=== PATIENT | female | born 1940 | race Caucasian/White ===

== ENCOUNTER → 2019-04-28 13:03 | Outpatient (BNVA) | payer MEDICARE, MEDICAID, SELFPAY | PROVIDERS: Family Provider Family Medicine; PCP Family Medicine; Visit Provider Nurse Practitioner Family | DX: N39.0 Urinary tract infection, site not specified (principal); R35.1 Nocturia; N39.41 Urge incontinence | CPT/HCPCS: 81001 ==

== ENCOUNTER → 2019-05-19 13:16 | Outpatient (BNVA) | payer MEDICARE, MEDICAID, SELFPAY | PROVIDERS: Family Provider Family Medicine; PCP Family Medicine; Visit Provider Nurse Practitioner Family | DX: N39.0 Urinary tract infection, site not specified (principal); R35.1 Nocturia | CPT/HCPCS: 81001 ==

== ENCOUNTER → 2019-06-15 09:01 | Outpatient (BNVA) | payer MEDICARE, MEDICAID, SELFPAY | PROVIDERS: Family Provider Family Medicine; PCP Family Medicine; Visit Provider Family Medicine | DX: E11.42 Type 2 diabetes mellitus with diabetic polyneuropathy (principal) | CPT/HCPCS: 83036 ==

== ENCOUNTER → 2019-08-18 13:11 | Outpatient (BNVA) | payer MEDICARE, MEDICAID, SELFPAY | PROVIDERS: Family Provider Family Medicine; PCP Family Medicine; Visit Provider Nurse Practitioner Family | DX: N39.0 Urinary tract infection, site not specified (principal); R35.1 Nocturia | CPT/HCPCS: 81001 ==

== ENCOUNTER → 2019-09-08 09:02 | Outpatient (BNVA) | payer MEDICARE, MEDICAID, SELFPAY | PROVIDERS: Family Provider Family Medicine; PCP Family Medicine; Visit Provider Family Medicine | DX: I10 Essential (primary) hypertension (principal); E78.5 Hyperlipidemia, unspecified; E11.29 Type 2 diabetes mellitus with other diabetic kidney complication; R80.9 Proteinuria, unspecified; Z79.4 Long term (current) use of insulin; R80.1 Persistent proteinuria, unspecified | CPT/HCPCS: 80053; 80061; 83036; 85025 ==

== ENCOUNTER → 2019-12-12 13:14 | Outpatient (BNVA) | payer MEDICARE, MEDICAID, SELFPAY | PROVIDERS: Family Provider Family Medicine; PCP Family Medicine; Referring Provider Dermatology; Visit Provider Dermatology | DX: Z85.820 Personal history of malignant melanoma of skin (principal); L57.0 Actinic keratosis; L82.1 Other seborrheic keratosis; L72.0 Epidermal cyst | CPT/HCPCS: 17000; 17003; 99203 ==

== ENCOUNTER → 2019-12-14 08:33 | Outpatient (BNVA) | payer MEDICARE, MEDICAID, SELFPAY | PROVIDERS: Family Provider Family Medicine; PCP Family Medicine; Visit Provider Family Medicine | DX: I10 Essential (primary) hypertension (principal); E11.29 Type 2 diabetes mellitus with other diabetic kidney complication; R80.9 Proteinuria, unspecified; Z79.4 Long term (current) use of insulin; E78.5 Hyperlipidemia, unspecified | CPT/HCPCS: 80053; 83036 ==

== ENCOUNTER → 2020-02-27 13:27 | Outpatient (BNVA) | payer MEDICARE, MEDICAID, SELFPAY | PROVIDERS: Family Provider Family Medicine; PCP Family Medicine; Visit Provider Nurse Practitioner Family | DX: N39.0 Urinary tract infection, site not specified (principal); R35.1 Nocturia | CPT/HCPCS: 81003 ==

== ENCOUNTER → 2020-03-14 08:44 | Outpatient (BNVA) | payer MEDICARE, MEDICAID, SELFPAY | PROVIDERS: Family Provider Family Medicine; PCP Family Medicine; Visit Provider Family Medicine | DX: R80.9 Proteinuria, unspecified (principal); E11.29 Type 2 diabetes mellitus with other diabetic kidney complication; Z79.4 Long term (current) use of insulin | CPT/HCPCS: 80048 ==

== ENCOUNTER → 2020-04-03 09:26 | Outpatient (BNVA) | payer MEDICARE, MEDICAID, SELFPAY | PROVIDERS: Family Provider Family Medicine; PCP Family Medicine; Visit Provider Family Medicine | DX: I10 Essential (primary) hypertension (principal); E11.29 Type 2 diabetes mellitus with other diabetic kidney complication; R80.9 Proteinuria, unspecified; Z79.4 Long term (current) use of insulin; E78.5 Hyperlipidemia, unspecified | CPT/HCPCS: 80053; 80061; 82043; 83036; 85025 ==

== ENCOUNTER → 2020-07-03 09:02 | Outpatient (BNVA) | payer MEDICARE, MEDICAID, SELFPAY | PROVIDERS: Family Provider Family Medicine; PCP Family Medicine; Visit Provider Family Medicine | DX: I10 Essential (primary) hypertension (principal); E11.29 Type 2 diabetes mellitus with other diabetic kidney complication; R80.9 Proteinuria, unspecified; Z79.4 Long term (current) use of insulin; E78.5 Hyperlipidemia, unspecified; E11.40 Type 2 diabetes mellitus with diabetic neuropathy, unspecified | CPT/HCPCS: 80048; 83036 ==

== ENCOUNTER → 2020-08-01 09:03 | Outpatient (BNVA) | payer MEDICARE, MEDICAID, SELFPAY | PROVIDERS: Family Provider Family Medicine; PCP Family Medicine; Visit Provider Family Medicine | DX: N18.9 Chronic kidney disease, unspecified (principal) | CPT/HCPCS: 80069; 82340 ==

== ENCOUNTER → 2020-08-22 14:35 | Outpatient (BNVA) | payer MEDICARE, MEDICAID, SELFPAY | PROVIDERS: Family Provider Family Medicine; PCP Family Medicine; Visit Provider Urology | DX: N39.0 Urinary tract infection, site not specified (principal) | CPT/HCPCS: 81003 ==

== ENCOUNTER → 2020-10-04 13:08 | Outpatient (BNVA) | payer MEDICARE, MEDICAID, SELFPAY | PROVIDERS: Family Provider Family Medicine; PCP Family Medicine; Visit Provider Family Medicine | DX: E11.29 Type 2 diabetes mellitus with other diabetic kidney complication (principal); R80.9 Proteinuria, unspecified; E11.40 Type 2 diabetes mellitus with diabetic neuropathy, unspecified; I10 Essential (primary) hypertension; Z79.4 Long term (current) use of insulin | CPT/HCPCS: 80053; 83036 ==

== ENCOUNTER → 2020-10-23 15:07 | Outpatient (BNVA) | payer MEDICARE, MEDICAID, SELFPAY | PROVIDERS: Family Provider Family Medicine; PCP Family Medicine; Visit Provider Nurse Practitioner Family | DX: N39.0 Urinary tract infection, site not specified (principal); R39.15 Urgency of urination; R35.1 Nocturia | CPT/HCPCS: 81003 ==

== ENCOUNTER 2020-12-11 14:32 | Outpatient (CLI) | payer MEDICARE, MEDICAID, SELFPAY ==
--- NOTE | 2020-12-11 12:45 | USCV_ITS ---
Nimo Kennedy Age: 80 Gender: F : 1940 Exam Date: 12/11/2020 15:13 Ordering Phys: Gem Garcia MD ([email or web address]) Technologist: Exam Location: [facility] [place] Indication: PAD Risk Factors: None Previous Vascular Surgery: RIGHT LEFT BP: 140.0 / 80.00 BP: 140.0/ 80.00 0 0 Waveform Velocity (cm/s) Velocity (cm/s) Waveform Biphasic 110.3 Iliac Prox 149.0 Biphasic Biphasic Iliac Mid Biphasic 134.1 150.4 Biphasic 118.4 Iliac Distal 114.7 Biphasic Biphasic 102.7 OBIEE OBIA SOLUTION ARCHITECT 83.1 Biphasic Biphasic 101.3 SFA Prox 102.9 Biphasic Biphasic 98.4 SFA Mid 100.2 Biphasic Biphasic 95.6 SFA Dist 109.5 Biphasic Biphasic 72.7 POP 70.8 Biphasic Biphasic 89.3 POLYSOM TECH 56.0 Biphasic Monophasic 67.0 DPA 55.8 Monophasic 1.1 SADI 1.0 FINDINGS Mild to moderate diffuse plaque in the femoral arteries bilaterally Normal resting ABIs bilaterally-1.1 on the right side and 1.0 on the left side Normal Doppler flow velocities bilaterally CONCLUSIONS 1. No significant arterial obstruction, based on the above findings 2. Mild to moderate diffuse plaques in the femoral arteries bilaterally Dr Gem Garcia MD [facility] (Electronically Signed) Final Date: 12 December 2020 07:44 S
== END 2020-12-11 14:33 | disposition home or self-care (01) ==
LOC: RAD 14:41
PROVIDERS: PCP Family Medicine; Visit Provider Internal Medicine Cardiovascular Disease
DX: I73.9 Peripheral vascular disease, unspecified (principal); I35.8 Other nonrheumatic aortic valve disorders; I70.8 Atherosclerosis of other arteries
CPT/HCPCS: 93925

== ENCOUNTER → 2021-01-03 12:37 | Outpatient (BNVA) | payer MEDICARE, MEDICAID, SELFPAY | PROVIDERS: PCP Family Medicine; Visit Provider Family Medicine | DX: E11.29 Type 2 diabetes mellitus with other diabetic kidney complication (principal); R80.9 Proteinuria, unspecified; Z79.4 Long term (current) use of insulin | CPT/HCPCS: 80053; 83036 ==

== ENCOUNTER 2021-01-17 15:40 | Outpatient (CLI) | payer MEDICARE, MEDICAID, SELFPAY ==
--- NOTE | 2021-01-17 15:45 | USCV_ITS ---
Nimo Kennedy Age: 80 Gender: F : 1940 Exam Date: 01/17/2021 15:50 Ordering Phys: Gem Garcia MD ([email or web address]) Technologist: RISHABH [place] [facility] [place]ication: DYSPNEA BP: 140 / 60 HR: 72 Rhythm: Other Technical Quality: Adequate MEASUREMENTS (Male / Female) Normal Values 2D ECHO LV Diastolic Diameter PLAX 4.0 cm 4.2 - 5.9 / 3.9 - 5.3 cm LV Systolic Diameter PLAX 3.0 cm IVS Diastolic Thickness 2.0 cm 0.6 - 1.0 / 0.6 - 0.9 cm IVS Systolic Thickness 3.1 cm LVPW Diastolic Thickness 1.9 cm 0.6 - 1.0 / 0.6 - 0.9 cm LVPW Systolic Thickness 2.7 cm LVOT Diameter 2.0 cm LV Ejection Fraction 2D Teich 52.3 % LV Ejection Fraction MOD 2C 41.7 % LV Ejection Fraction 2C AL 39.8 % LA Diameter 3.9 cm LA Width 4.6 cm LA Height 6.2 cm RA Width 3.9 cm RA Height 4.8 cm Aorta at Sinotubular Diameter 3.1 cm M-MODE Aortic Annulus Diameter 3.2 cm LA Ao Ratio MM 1.2 DOPPLER AV Peak Velocity 214.0 cm/s LVOT Peak Velocity 107.0 cm/s AV Area Cont Eq vti 1.7 cm squared AV Area Cont Eq pk 1.6 cm squared MV Peak Velocity 160.0 cm/s MV Area PHT 2.2 cm squared Mitral E to A Ratio 1.0 MV E' Velocity 152.0 cm/s TR Peak Velocity 207.1 cm/s TR Peak Gradient 17.2 mmHg TR Mean Velocity 138.1 cm/s TR Mean Gradient 9.1 mmHg TR Velocity Time Integral 38.0 cm TV Peak E Velocity 33.0 cm/s Right Atrial Pressure 3.0 mmHg Pulmonary Artery Systolic Pressu 20.2 mmHg PV Peak Velocity 90.0 cm/s RV Acceleration Time 0.1 s RV Ejection Time 0.3 s RV AcT/ET 0.5 FINDINGS Left Ventricle Normal left ventricular size and systolic function, EF 55 %. Moderate left ventricular hypertrophy. Grade II/IV diastolic dysfunction, moderately elevated filling pressures. Right Ventricle The right ventricle is normal in size and function. Right Atrium The right atrium is normal in size. Left Atrium Mildly increased left atrial size. Mitral Valve Thickened mitral valve. Moderate mitral annular calcification. Aortic Valve Thickened aortic valve. Tricuspid Valve Trace tricuspid valve regurgitation. Pulmonic Valve Pulmonic valve not well visualized. Pericardium Normal pericardium without effusion. Aorta Normal ascending aorta dimension. CONCLUSIONS Normal left ventricular size and systolic function, EF 55 %. Moderate left ventricular hypertrophy. Grade II/IV diastolic dysfunction, moderately elevated filling pressures. Features of aortic valve sclerosis. Thickened mitral valve. Moderate mitral annular calcification. Mildly increased left atrial size. Trace tricuspid valve regurgitation. There is no pericardial effusion. There are no intracardiac masses. No previous study is available for comparison. Dr Gem Garcia MD [facility] (Electronically Signed) Final Date: 17 January 2021 22:33 S
== END 2021-01-17 15:41 | disposition home or self-care (01) ==
LOC: US 15:43
PROVIDERS: PCP Family Medicine; Visit Provider Internal Medicine Cardiovascular Disease
DX: R06.00 Dyspnea, unspecified (principal); R01.1 Cardiac murmur, unspecified; I08.3 Combined rheumatic disorders of mitral, aortic and tricuspid valves
CPT/HCPCS: 93306

== ENCOUNTER → 2021-01-23 15:43 | Outpatient (BNVA) | payer MEDICARE, MEDICAID, SELFPAY | PROVIDERS: PCP Family Medicine; Visit Provider Urology | DX: N39.0 Urinary tract infection, site not specified (principal); R35.1 Nocturia | CPT/HCPCS: 81003 ==

== ENCOUNTER → 2021-02-25 09:07 | Outpatient (BNVA) | payer MEDICARE, MEDICAID, SELFPAY | PROVIDERS: PCP Family Medicine; Visit Provider Nurse Practitioner Family | DX: Z20.822 Contact with and (suspected) exposure to COVID-19 (principal) | CPT/HCPCS: 87635 ==

== ENCOUNTER → 2021-05-16 14:26 | Outpatient (BNVA) | payer MEDICARE, MEDICAID, SELFPAY | PROVIDERS: PCP Family Medicine; Visit Provider Internal Medicine | DX: E11.65 Type 2 diabetes mellitus with hyperglycemia (principal); E11.22 Type 2 diabetes mellitus with diabetic chronic kidney disease; N18.30 Chronic kidney disease, stage 3 unspecified; E78.2 Mixed hyperlipidemia; I73.9 Peripheral vascular disease, unspecified; Z79.4 Long term (current) use of insulin; Z87.891 Personal history of nicotine dependence | CPT/HCPCS: 99204 ==

== ENCOUNTER → 2021-05-28 11:56 | Outpatient (BNVA) | payer MEDICARE, MEDICAID, SELFPAY | PROVIDERS: PCP Family Medicine; Visit Provider Family Medicine | DX: E78.5 Hyperlipidemia, unspecified (principal); I10 Essential (primary) hypertension | CPT/HCPCS: 80053; 80061 ==

== ENCOUNTER → 2021-05-30 10:53 | Outpatient (BNVA) | payer MEDICARE, MEDICAID, SELFPAY | PROVIDERS: PCP Family Medicine; Visit Provider Internal Medicine | DX: E11.65 Type 2 diabetes mellitus with hyperglycemia (principal); E11.22 Type 2 diabetes mellitus with diabetic chronic kidney disease; N18.30 Chronic kidney disease, stage 3 unspecified; E78.2 Mixed hyperlipidemia; Z79.4 Long term (current) use of insulin; Z87.891 Personal history of nicotine dependence | CPT/HCPCS: 99214 ==

== ENCOUNTER → 2021-07-29 10:45 | Outpatient (BNVA) | payer MEDICARE, MEDICAID, SELFPAY | PROVIDERS: PCP Family Medicine; Visit Provider Internal Medicine Cardiovascular Disease | DX: I73.9 Peripheral vascular disease, unspecified (principal); I35.8 Other nonrheumatic aortic valve disorders; E78.2 Mixed hyperlipidemia; I47.2 Ventricular tachycardia; M79.89 Other specified soft tissue disorders; E11.65 Type 2 diabetes mellitus with hyperglycemia; Z87.891 Personal history of nicotine dependence; Z79.4 Long term (current) use of insulin; Z79.84 Long term (current) use of oral hypoglycemic drugs | CPT/HCPCS: 99214 ==

== ENCOUNTER → 2021-08-01 10:48 | Outpatient (BNVA) | payer MEDICARE, MEDICAID, SELFPAY | PROVIDERS: PCP Family Medicine; Visit Provider Internal Medicine | DX: E11.65 Type 2 diabetes mellitus with hyperglycemia (principal); E11.22 Type 2 diabetes mellitus with diabetic chronic kidney disease; N18.30 Chronic kidney disease, stage 3 unspecified; I73.9 Peripheral vascular disease, unspecified; E78.2 Mixed hyperlipidemia; Z79.4 Long term (current) use of insulin; Z87.891 Personal history of nicotine dependence | CPT/HCPCS: 99214 ==

== ENCOUNTER → 2021-08-15 14:55 | Outpatient (BNVA) | payer MEDICARE, MEDICAID, SELFPAY | PROVIDERS: PCP Family Medicine; Visit Provider Nurse Practitioner Family | DX: N39.41 Urge incontinence (principal); N39.0 Urinary tract infection, site not specified; R35.1 Nocturia | CPT/HCPCS: 81003; 99213 ==

== ENCOUNTER → 2021-11-11 15:32 | Outpatient (BNVA) | payer MEDICARE, MEDICAID, SELFPAY | PROVIDERS: PCP Family Medicine; Visit Provider Internal Medicine | DX: E11.65 Type 2 diabetes mellitus with hyperglycemia (principal); E11.22 Type 2 diabetes mellitus with diabetic chronic kidney disease; E11.29 Type 2 diabetes mellitus with other diabetic kidney complication; N18.30 Chronic kidney disease, stage 3 unspecified; R80.9 Proteinuria, unspecified; E78.2 Mixed hyperlipidemia; Z87.891 Personal history of nicotine dependence; Z79.4 Long term (current) use of insulin | CPT/HCPCS: 36415; 80053; 83036; 99214 ==

== ENCOUNTER → 2021-11-13 12:55 | Outpatient (BNVA) | payer MEDICARE, MEDICAID, SELFPAY | PROVIDERS: PCP Family Medicine; Visit Provider Nurse Practitioner Family | DX: N39.41 Urge incontinence (principal); N39.0 Urinary tract infection, site not specified; R35.1 Nocturia; R33.9 Retention of urine, unspecified | CPT/HCPCS: 51798; 81003; 99213 ==

== ENCOUNTER 2021-11-25 09:59 | Outpatient (CLI) | payer MEDICARE, MEDICAID, SELFPAY ==
[2021-11-25 11:27] LABS: Anion Gap 16.2 (5-19); Blood Urea Nitrogen 45 mg/dL (8-23); Calcium 9.1 mg/dL (8.5-10.5); Carbon Dioxide 26 mmol/L (22-29); Chloride 98 mmol/L (98-107); Glucose 183 mg/dL (65-115); Osmolality Calculated 298 mOsm/kg (285-295); Potassium 4.2 mmol/L (3.5-5.1); Sodium 136 mmol/L (136-145)
== END 2021-11-25 10:00 | disposition home or self-care (01) ==
LOC: LAB 10:02
PROVIDERS: PCP Family Medicine; Visit Provider Nurse Practitioner Family
DX: E11.22 Type 2 diabetes mellitus with diabetic chronic kidney disease (principal); N18.30 Chronic kidney disease, stage 3 unspecified
CPT/HCPCS: 36415; 80048

== ENCOUNTER → 2022-03-12 13:48 | Outpatient (BNVA) | payer MEDICARE, MEDICAID, SELFPAY | PROVIDERS: PCP Family Medicine; Visit Provider Internal Medicine Cardiovascular Disease | DX: I47.20 Ventricular tachycardia, unspecified (principal); I73.9 Peripheral vascular disease, unspecified; E78.5 Hyperlipidemia, unspecified; E11.29 Type 2 diabetes mellitus with other diabetic kidney complication; R80.9 Proteinuria, unspecified; Z79.4 Long term (current) use of insulin; I35.8 Other nonrheumatic aortic valve disorders; M79.89 Other specified soft tissue disorders; I12.9 Hypertensive chronic kidney disease with stage 1 through stage 4 chronic kidney disease, or unspecified chronic kidney disease; E11.22 Type 2 diabetes mellitus with diabetic chronic kidney disease; N18.30 Chronic kidney disease, stage 3 unspecified; Z87.891 Personal history of nicotine dependence | CPT/HCPCS: 99214 ==

== ENCOUNTER → 2022-05-20 13:10 | Outpatient (BNVA) | payer MEDICARE, MEDICAID, SELFPAY | PROVIDERS: PCP Family Medicine; Visit Provider Otolaryngology | DX: H61.23 Impacted cerumen, bilateral (principal) | CPT/HCPCS: 69210; 99212 ==

== ENCOUNTER → 2022-05-28 08:35 | Outpatient (BNVA) | payer MEDICARE, MEDICAID, SELFPAY | PROVIDERS: PCP Family Medicine; Visit Provider Internal Medicine | DX: E11.65 Type 2 diabetes mellitus with hyperglycemia (principal); E11.22 Type 2 diabetes mellitus with diabetic chronic kidney disease; E11.29 Type 2 diabetes mellitus with other diabetic kidney complication; N18.30 Chronic kidney disease, stage 3 unspecified; E78.2 Mixed hyperlipidemia; R80.9 Proteinuria, unspecified; Z79.4 Long term (current) use of insulin; Z79.84 Long term (current) use of oral hypoglycemic drugs | CPT/HCPCS: 99214 ==

== ENCOUNTER → 2022-08-28 08:27 | Outpatient (BNVA) | payer MEDICARE, MEDICAID, SELFPAY | PROVIDERS: PCP Family Medicine; Visit Provider Internal Medicine | DX: E11.65 Type 2 diabetes mellitus with hyperglycemia (principal); E11.22 Type 2 diabetes mellitus with diabetic chronic kidney disease; E11.29 Type 2 diabetes mellitus with other diabetic kidney complication; E78.2 Mixed hyperlipidemia; N18.30 Chronic kidney disease, stage 3 unspecified; R80.9 Proteinuria, unspecified; I73.9 Peripheral vascular disease, unspecified; Z79.84 Long term (current) use of oral hypoglycemic drugs; Z79.4 Long term (current) use of insulin | CPT/HCPCS: 80053; 80061; 82044; 82607; 82746; 83036; 99214 ==

== ENCOUNTER → 2022-09-24 14:01 | Outpatient (BNVA) | payer MEDICARE, MEDICAID, SELFPAY | PROVIDERS: PCP Family Medicine; Visit Provider Internal Medicine Cardiovascular Disease | DX: I47.20 Ventricular tachycardia, unspecified (principal); E78.5 Hyperlipidemia, unspecified; I73.9 Peripheral vascular disease, unspecified; E11.29 Type 2 diabetes mellitus with other diabetic kidney complication; Z79.4 Long term (current) use of insulin; R80.9 Proteinuria, unspecified; E11.40 Type 2 diabetes mellitus with diabetic neuropathy, unspecified; E11.22 Type 2 diabetes mellitus with diabetic chronic kidney disease; N18.30 Chronic kidney disease, stage 3 unspecified; I35.8 Other nonrheumatic aortic valve disorders; Z87.891 Personal history of nicotine dependence; I12.9 Hypertensive chronic kidney disease with stage 1 through stage 4 chronic kidney disease, or unspecified chronic kidney disease | CPT/HCPCS: 99214 ==

== ENCOUNTER 2022-10-13 08:21 | Outpatient (CLI) | payer MEDICARE, MEDICAID, SELFPAY ==
--- NOTE | 2022-10-13 08:45 | USCV_ITS ---
Nimo Kennedy Age: 81 Gender: F : 1940 Exam Date: 10/13/2022 09:06 Ordering Phys: Gem Garcia MD ([email or web address]) Technologist: [place] [facility] [place]: pad,claudication Risk Factors: Previous Vascular Surgery: RIGHT LEFT BP: 130.0 / 69.00 BP: 127.0/ 65.00 0 0 Waveform Velocity (cm/s) Velocity (cm/s) Waveform Monophasic 59.7 Iliac Prox 263.9 Biphasic Monophasic 50.8 Iliac Mid 231.3 Biphasic Monophasic 46.2 Iliac Distal 116.4 Biphasic Monophasic 33.2 VISUAL AID EXPERT 103.2 Biphasic Monophasic 30.8 SFA Prox 77.1 Biphasic Monophasic 36.1 SFA Mid 66.1 Biphasic Monophasic 29.6 SFA Dist 74.1 Biphasic Monophasic 25.5 POP 70.1 Biphasic Monophasic SERVICE LOSS CONTROL CONSULTANT 87.2 Biphasic Monophasic 31.1 DPA 41.1 Biphasic 0.7 SADI 1.0 FINDINGS Resting SADI 0.7 on the right side. Low velocity, delayed peaking, monophasic waveforms in the iliac, femoral and popliteal arteries. Monophasic and continuous waveforms in the posterior tibial and dorsalis pedis arteries. Mild to moderate diffuse plaque in the above-mentioned arteries. Moderate diffuse plaque in the left iliac, femoral and popliteal arteries. Resting SADI of 1.0 on the left side. Elevated velocity in the proximal and mid iliac arteries CONCLUSIONS 1. Abnormal resting SADI and waveforms on the right side, suggesting high-grade stenosis, possibly involving the ostium of the common iliac artery on the right side. Possible collateral filling in the infrapopliteal vessels. 2. Normal resting SADI on the left side with abnormal arterial Doppler velocities and waveforms, suggesting moderate peripheral artery disease mostly involving the iliac vessels. Dr Gem Garcia MD [facility] (Electronically Signed) Final Date: 13 October 2022 19:57 S
== END 2022-10-13 08:22 | disposition home or self-care (01) ==
LOC: RAD 08:26
PROVIDERS: PCP Family Medicine; Visit Provider Internal Medicine Cardiovascular Disease
DX: I73.9 Peripheral vascular disease, unspecified (principal); R93.6 Abnormal findings on diagnostic imaging of limbs
CPT/HCPCS: 93925; 99214

== ENCOUNTER → 2022-10-29 14:10 | Outpatient (BNVA) | payer MEDICARE, MEDICAID, SELFPAY | PROVIDERS: PCP Family Medicine; Visit Provider Internal Medicine Cardiovascular Disease | DX: I73.9 Peripheral vascular disease, unspecified (principal); I12.9 Hypertensive chronic kidney disease with stage 1 through stage 4 chronic kidney disease, or unspecified chronic kidney disease; E11.22 Type 2 diabetes mellitus with diabetic chronic kidney disease; N18.30 Chronic kidney disease, stage 3 unspecified; E11.29 Type 2 diabetes mellitus with other diabetic kidney complication; Z79.4 Long term (current) use of insulin; R80.9 Proteinuria, unspecified; E78.2 Mixed hyperlipidemia; I35.8 Other nonrheumatic aortic valve disorders; Z87.891 Personal history of nicotine dependence | CPT/HCPCS: 99214 ==

== ENCOUNTER 2022-11-03 12:44 | Outpatient (CLI) | payer MEDICARE, MEDICAID, SELFPAY ==
[2022-11-03 13:46] LABS: Anion Gap 12.9 (5-19); Blood Urea Nitrogen 20 mg/dL (8-23); Calcium 8.7 mg/dL (8.5-10.5); Carbon Dioxide 29 mmol/L (22-29); Chloride 100 mmol/L (98-107); Glucose 212 mg/dL (65-115); Osmolality Calculated 295 mOsm/kg (285-295); Potassium 3.9 mmol/L (3.5-5.1); Sodium 138 mmol/L (136-145)
== END 2022-11-03 12:45 | disposition home or self-care (01) ==
PROVIDERS: PCP Family Medicine; Visit Provider Internal Medicine Cardiovascular Disease
DX: R06.02 Shortness of breath (principal)
CPT/HCPCS: 36415; 80048

== ENCOUNTER 2022-11-09 06:29 | Inpatient (IN) | payer MEDICARE, MEDICAID, SELFPAY ==
[2022-11-09] VITALS (114 sets, daily range): BP systolic 91–196; BP diastolic 56–122; PULSE 83–169; RESP 16–53; TEMP 36.6–36.8; O2SAT 88–94; BMI 28.0
--- NOTE | 2022-11-09 06:37 | XRR_ITS ---
PROCEDURE INFORMATION: Exam: XR Chest Exam date and time: 11/09/2022 6:57 AM Age: 82 years old Clinical indication: Cough and dyspnea; Additional info: Dyspnea/cough TECHNIQUE: Imaging protocol: Radiologic exam of the chest. Views: 1 view. COMPARISON: CR XR chest 1V [id number] 11/08/2016 3:37 PM FINDINGS: Lungs: Chronic underlying interstitial lung disease. Patchy infiltrates both lung bases. Pleural spaces: Unremarkable. No pleural effusion. No pneumothorax. Heart/Mediastinum: Unremarkable. No cardiomegaly. Bones/joints: Unremarkable. XR/XR chest 1V portable [id number] IMPRESSION: Chronic underlying interstitial lung disease. Patchy opacities both lung bases. Pneumonia not excluded.
--- NOTE | 2022-11-09 06:39 | ED_ITS ---
HPI - SOB/Dyspnea General: Chief Complaint: Shortness of Breath/Dyspnea Stated Complaint: SOB Time Seen by Provider: 11/09/22 06:35 Source: patient Mode of arrival: ambulatory History of Present Illness: HPI Narrative: 82-year-old female presents to the emergency room with complaints of rapid heart rate and shortness of breath. Patient has no history of atrial fibrillation she is diabetic and is history of COPD she is not currently on any anticoagulants she did not take any of her medications she is on carvedilol. She has noticed sudden onset of orthopnea through the night she has not had any chest pain at all up to this point she has some mild swelling in her lower extremities which she says is unchanged from her baseline. She has no known history of any arrhythmias in the past MD elicited complaint: shortness of breath Pertinent past history: COPD Onset (ago): hour(s) Timing: constant Severity: severe Exacerbating factors: lying flat, exertion and coughing Relieving factors: oxygen, rest and upright position Known history of: COPD Associated symptoms: Reports chest congestion, cough and orthopnea; Deny abdominal pain, chest pain, diaphoresis, dizziness, extremity pain, fever(s), hemoptysis, lightheadedness, myalgias, nausea, palpitations, paresthesias, polydipsia, polyuria, rash, sense of impending doom, syncope, vomiting or other Treatment prior to arrival: none Review of Systems Const: Denies: fever(s), chills or diaphoresis ENMT: Denies: throat pain, ear or mastoid pain, nasal discharge or nasal congestion Card: Reports: irregular heart rhythm, edema, swelling of feet/ankles, dyspnea on exertion and orthopnea; Denies: chest pain, palpitations, lightheadedness or syncope Resp: Reports: dyspnea, non-productive cough, wheezing and chest congestion; Denies: hemoptysis GI: Denies: abdominal pain, nausea or vomiting : Denies: flank pain, difficulty voiding, dysuria, urinary frequency or urinary urgency Musc: Denies: extremity pain Skin/Breast: Denies: rash or pruritus Neuro: Denies: dizziness Endo: Denies: polyuria or polydipsia PFS ED PFSH: Medical History Acute bronchitis and bronchiolitis Benign mass of parotid gland DJD (degenerative joint disease) Dyslipidemia Essential (primary) hypertension History of malignant melanoma History of nonmelanoma skin cancer Incomplete emptying of bladder Left anterior knee pain Nocturia Proteinuria PVD (peripheral vascular disease) Recurrent UTI Tuberculosis Type 2 diabetes mellitus, with long-term current use of insulin Urgency incontinence Urinary urgency Surgical History H/O breast biopsy H/O section H/O: hysterectomy History of surgery on lower extremity History of tonsillectomy Family History Mother , at age 93 Diabetes CAD (coronary artery disease) Brother Leukemia Cancer Diabetes Family/Other Cancer Diabetes Daughter Chronic kidney disease (CKD) Cancer Father , at age 83 Stroke Grandmother Cancer Denies family history of Clotting disorder Dementia Suicide Anesthesia complication Bleeding disorder Lung disease Social History Smoking and tobacco status: former smoker Alcohol intake: current Alcohol intake frequency: holidays/special occasions only Substance/Drug Use: never Adopted: No Caregiver/support person: No Household members: family Marital status: Current occupational status: retired Physical Exam Const: GENERAL APPEARANCE: cooperative ORIENTATION/CONSCIOUSNESS: Yes awake, Yes oriented to person, Yes oriented to place and Yes oriented to time HENMT: COMMON NORMALS: normocephalic, atraumatic and hearing grossly normal bilaterally HEAD & SCALP: normocephalic and atraumatic Resp: EFFORT & INSPECTION: Yes tachypneic and Yes uses accessory muscles AUSCULTATION: crackles Cardio: COMMON NORMALS: No murmurs present (Cardio) RATE: tachycardic RHYTHM: abnormal rhythm irregularly irregular GI: COMMON NORMALS: Soft to palpation and No hepatosplenomegaly present AUSCULTATION: Yes normoactive bowel sounds PALPATION: Yes Soft to palpation, No Tenderness to palpation present (GI), No Guarding due to palpation present (GI) and Yes No hepatosplenomegaly present Extremity: COMMON NORMALS: normal to inspection, capillary refill normal and no calf tenderness GENERAL: Yes edema Neuro: SENSORIUM/ORIENTATION: Yes oriented to person, Yes oriented to place and Yes oriented to time Skin: COMMON NORMALS: no rashes or lesions noted GENERAL SKIN EXAM: no rashes or lesions noted Course Vital Signs: Vital signs: Vital Signs Temperature 97.9 F 11/09/22 06:33 Pulse Rate 95 11/09/22 08:09 Respiratory Rate 26 H 11/09/22 07:58 Blood Pressure 99/66 11/09/22 07:45 Pulse Oximetry 91 11/09/22 07:58 Oxygen Delivery Me thod Nasal Cannula 11/09/22 07:58 Oxygen Flow Rate 6 11/09/22 07:58 MDM - SOB/Dyspnea Medical Decision Making Patient Chemo-fib with RVR rate improved after Cardizem blood pressure also improved she is requiring fair amount of oxygen chest x-ray felt looked more like she had worsening congestive heart failure she does have some leukocytosis lactic acid and blood cultures done we will cover with Levaquin for now. She is feeling somewhat improved she is occasionally going in and out of sinus rhythm now. Initial troponin of 22. Discussed with hospitalist orders written. Medical Records I reviewed the patient's medical records. Lab Data I reviewed the patient's lab results. 11/09/22 06:45 11/09/22 06:45 Labs/Radiology: Radiology Impressions Chest X-Ray 11/09/22 06:37 IMPRESSION: Chronic underlying interstitial lung disease. Patchy opacities both lung bases. Pneumonia not excluded. Laboratory Results WBC 12.4 10^3/uL (4.0-10.0) H 11/09/22 06:45 RBC 5.72 10^6/uL (4.1-5.3) H 11/09/22 06:45 Hgb 16.4 g/dL (11.5-15.3) H 11/09/22 06:45 Hct 50.8 % (37.0-47.0) H 11/09/22 06:45 MCV 88.8 fl (81-99) 11/09/22 06:45 MCH 28.7 pg (28.0-34.0) 11/09/22 06:45 MCHC 32.3 g/dL (30.0-36.0) 11/09/22 06:45 RDW 14.6 % (12.1-15.1) 11/09/22 06:45 Plt Count 254 10^3/cmm (130-400) 11/09/22 06:45 MPV 11.2 fL (7.4-10.4) H 11/09/22 06:45 Neut % (Auto) 85.2 % 11/09/22 06:45 Lymph % (Auto) 8.3 % 11/09/22 06:45 [place] % (Auto) 5.6 % 11/09/22 06:45 Eos % (Auto) 0.2 % 11/09/22 06:45 Baso % (Auto) 0.2 % 11/09/22 06:45 Neut # (Auto) 10.59 10^3/uL (1.8-7.7) H 11/09/22 06:45 Lymph # (Auto) 1.0 10^3/uL (0.8-4.8) 11/09/22 06:45 [place] # (Auto) 0.7 10^3/uL (0.2-0.9) 11/09/22 06:45 Eos # (Auto) 0.0 10^3/uL (0.0-0.8) 11/09/22 06:45 Baso # (Auto) 0.0 10^3/uL (0.0-0.1) 11/09/22 06:45 Nucleated RBC % (auto) 0 % 11/09/22 06:45 Nucleated RBCs # 0.0 /100WBC 11/09/22 06:45 Specimen Type Arterial 11/09/22 07:00 Sample Site Radial, left 11/09/22 07:00 ABG pH 7.45 (7.35-7.45) 11/09/22 07:00 ABG pCO2 40.1 mmHg (35-45) 11/09/22 07:00 ABG pO2 54.0 mmHg (80.0-100.0) L 11/09/22 07:00 ABG HCO3 27.9 mmol/L (22-26) H 11/09/22 07:00 ABG O2 Saturation 89.1 11/09/22 07:00 ABG Base Excess 3.7 mmol/L (-2.0-2.0) H 11/09/22 07:00 Hansel Test Pos 11/09/22 07:00 A-a O2 Gradient 10.6 mmHg (5-10) H 11/09/22 07:00 Hematocrit 49.8 % (37-47) H 11/09/22 07:00 Hgb O2 Saturation 88.3 % (95-100) L 11/09/22 07:00 Carboxyhemoglobin 0.7 %THgb (0.4-20.1) 11/09/22 07:00 Methemoglobin 0.1 % (0.4-1.5) L 11/09/22 07:00 Total Hemoglobin 16.2 g/dL (12-16) H 11/09/22 07:00 Sodium 138.0 mmol/L (131-143) 11/09/22 07:00 Potassium 3.6 mmol/L (3.5-5.0) 11/09/22 07:00 Glucose 226.0 mg/dL (70-115) H 11/09/22 07:00 Ionized Calcium 1.2 mmol/L (1.1-1.4) 11/09/22 07:00 O2 Delivery Device Nc 11/09/22 07:00 O2 Liters/Min 1.5 % 11/09/22 07:00 FiO2 26.0 % 11/09/22 07:00 Specifications Writer ID Alewe 11/09/22 07:00 Sodium 141 mmol/L (136-145) 11/09/22 06:45 Potassium 4.0 mmol/L (3.5-5.1) 11/09/22 06:45 Chloride 101 mmol/L (98-107) 11/09/22 06:45 Carbon Dioxide 28 mmol/L (22-29) 11/09/22 06:45 Anion Gap 16.0 (5-19) 11/09/22 06:45 BUN 15 mg/dL (8-23) 11/09/22 06:45 Creatinine 0.8 mg/dL (0.5-0.9) 11/09/22 06:45 GFR Calculation Not Reportable 11/09/22 06:45 Glucose 234 mg/dL (65-115) H 11/09/22 06:45 Calculated Osmolality 300 mOsm/kg (285-295) H 11/09/22 06:45 Calcium 8.7 mg/dL (8.5-10.5) 11/09/22 06:45 Total Bilirubin 0.6 mg/dL (0.15-1.2) 11/09/22 06:45 AST 19 U/L (0-32) 11/09/22 06:45 ALT 20 U/L (0-33) 11/09/22 06:45 Alkaline Phosphatase 45 U/L (35-105) 11/09/22 06:45 Troponin T Baseline 22 ng/L (0-10) H 11/09/22 06:45 NT-Pro-B Natriuret Pep 1385 pg/mL (0-450) H 11/09/22 06:45 Total Protein 7.0 g/dL (6.6-8.7) 11/09/22 06:45 Albumin 4.0 g/dL (3.5-5.2) 11/09/22 06:45 Globulin 3.0 g/dL (1.3-4.6) 11/09/22 06:45 EKG Data EKG 1: EKG Interpretation Date: 11/09/22 EKG interpretation time: 06:41 Interpretation: A-fib with rapid ventricular response Q waves in V1 through [address] elevation Discharge Plan Discharge Admit Provider: Melvin Tovar Clinical Impression: Atrial fibrillation with rapid ventricular response, Type 2 diabetes mellitus, with long-term current use of insulin, Stage 3 chronic kidney disease due to type 2 diabetes mellitus, Aortic valve sclerosis, Congestive heart failure (CHF), Pneumonia Condition: Stable Coding Level of Care Code ED Indoor Landscaper/Gardener for Jay Haynes
--- NOTE | 2022-11-09 06:41 | ECG_ITS ---
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 Measurements Intervals [place] Rate: 169 P: 0 AK: 0 QRS: 48 QRSD: 85 T: 189 QT: 270 QTc: 453 Interpretive Statements ATRIAL FIBRILLATION WITH RAPID VENTRICULAR RESPONSE WITH ABERRANT CONDUCTION OR VENTRICULAR PREMATURE COMPLEXES POSSIBLE ANTEROSEPTAL MYOCARDIAL INFARCTION , OF INDETERMINATE AGE [40+ ms Q WAVE IN V1-V4] CRITICAL TEST RESULT Compared to ECG 11/08/2016 15:42:39 Ventricular premature complex(es) now present Aberrant conduction of supraventricular beat(s) now present Possible myocardial infarct finding now present Sinus rhythm no longer present First degree AV block no longer present Electronically Signed On 11-09-2022 11:30:48 CDT by Marty Grayson M.D. [id number]
[2022-11-09] MEDS: albuterol 2.5 mg/3 mL Neb INHALATION (06:47)
[2022-11-09] MEDS: dilTIAZem 5 mg/mL SDV 5 mL 20 MG IVP (06:50)
[2022-11-09] MEDS: dilTIAZem 100 MG in sodium chloride 0.9% (add-van) 100 ML IV (06:51)
[2022-11-09] MEDS: carvedilol 12.5 mg Tablet PO ×2 (06:51→17:31)
[2022-11-09 06:53] LABS: Basophils % 0.2 %; Eosinophils % 0.2 %; Hematocrit 50.8 % (37.0-47.0); Hemoglobin 16.4 g/dL (11.5-15.3); Lymphocytes % 8.3 %; Mean Corpuscular HGB Conc 32.3 g/dL (30.0-36.0); Mean Corpuscular Hemoglobin 28.7 pg (28.0-34.0); Mean Corpuscular Volume 88.8 fl (81-99); Mean Platelet Volume 11.2 fL (7.4-10.4); Monocytes # 0.7 10^3/uL (0.2-0.9); Monocytes % 5.6 %; Neutrophils # 10.59 10^3/uL (1.8-7.7); Neutrophils % 85.2 %; Nucleated Red Blood Cells % 0 %; Platelet Count 254 10^3/cmm (130-400); Red Blood Count 5.72 10^6/uL (4.1-5.3); Red Cell Distribution Width 14.6 % (12.1-15.1); White Blood Count 12.4 10^3/uL (4.0-10.0)
[2022-11-09 07:04] LABS: ABG PCO2 40.1 mmHg (35-45); ABG PH Result 7.45 (7.35-7.45); Alveolar-Arterial Oxygen Gradi 10.6 mmHg (5-10); Arterial Blood Gas Hematocrit 49.8 % (37-47); Base Excess ABG 3.7 mmol/L (-2.0-2.0); Blood Gas Allen Test Pos; Blood Gas LPM 1.5 %; Blood Gas Sample Site Radial, left; Blood Gas Sample Type Arterial; Carboxyhemoglobin 0.7 %THgb (0.4-20.1); HCO3 ABG 27.9 mmol/L (22-26); HGB O2 Sat 88.3 % (95-100); Ionized Calcium Level - ABG 1.2 mmol/L (1.1-1.4); Methemoglobin 0.1 % (0.4-1.5); Oxygen Device NC; Oxygen Saturation ABG 89.1; Potassium Level - ABG 3.6 mmol/L (3.5-5.0); Total Hemoglobin 16.2 g/dL (12-16)
--- NOTE | 2022-11-09 07:11 | PC.NURSE ---
Report from KRISTIAN Flores. Pt sitting up in bed. RT at bedside. Pt is alert and oriented. Orders received.
[2022-11-09] MEDS: methylPREDNISolone sod succ 125 MG in water for injection-sterile 2 ML 24 MG IVP (07:18)
[2022-11-09 07:22] LABS: Troponin(5th) Baseline 22 ng/L (0-10)
[2022-11-09 07:31] LABS: Alanine Aminotransferase 20 U/L (0-33); Alkaline Phosphatase 45 U/L (35-105); Aspartate Amino Transferase 19 U/L (0-32); Blood Urea Nitrogen 15 mg/dL (8-23); Calcium 8.7 mg/dL (8.5-10.5); Carbon Dioxide 28 mmol/L (22-29); Chloride 101 mmol/L (98-107); Creatinine Clr Calc Pharmacy 63.5022; Glucose 234 mg/dL (65-115); NT Pro B Type Natriuretic Pept 1385 pg/mL (0-450); Osmolality Calculated 300 mOsm/kg (285-295); Sodium 141 mmol/L (136-145); Total Bilirubin 0.6 mg/dL (0.15-1.2)
[2022-11-09] MEDS: FUROsemide 10 mg/mL SDV 2mL 20 MG IVP (07:39)
--- NOTE | 2022-11-09 07:53 | ECG_ITS ---
[facility] Test Date: 2022-11-09 Pat Name: Nimo Kennedy Department: Room: Gender: Female Short Order Fry Cook: : 1940 Requested By: Jack Perez Order Number: [id number] Celena MD: Marty Grayson M.D. Measurements Intervals [place] Rate: 90 P: 0 CO: 0 QRS: 34 QRSD: 95 T: 23 QT: 365 QTc: 447 Interpretive Statements ATRIAL FIBRILLATION ANTEROSEPTAL MYOCARDIAL INFARCTION , OF INDETERMINATE AGE [40+ ms Q WAVE IN V1-V4] Compared to ECG 11/09/2022 06:41:11 Ventricular premature complex(es) no longer present Aberrant conduction of supraventricular beat(s) no longer present Myocardial infarct finding still present Electronically Signed On 11-09-2022 11:38:33 CDT by Marty Grayson M.D. [id number]
[2022-11-09] MEDS: ipratropium-albuterol 3 mL Neb INHALATION (07:54)
[2022-11-09 08:32] LABS: Lactic Sepsis W/Reflex 1.3 mmol/L (0.5-2.2)
--- NOTE | 2022-11-09 08:47 | USCV_ITS ---
Nimo Kennedy Age: 82 Gender: F : 1940 Exam Date: 11/09/2022 17:45 Ordering Phys: Melvin Tovar MD Technologist: Ye Drummond Exam Location: [facility] [place] Indication: SOB BP: 120 / 103 HR: 104 Rhythm: Atrial fibrillation Technical Quality: Poor MEASUREMENTS (Male / Female) Normal Values 2D ECHO LVOT Diameter 2.0 cm LV Ejection Fraction MOD 2C 60.6 % LV Ejection Fraction 2C AL 62.9 % LA Diameter 4.1 cm LA Width 3.4 cm LA Height 4.8 cm RA Width 3.7 cm RA Height 4.5 cm Aorta at Sinotubular Diameter 2.4 cm IVC Diameter 2.5 cm M-MODE Aortic Annulus Diameter 3.0 cm LA Ao Ratio MM 1.5 MV E Point Septal Separation 0.8 cm DOPPLER AV Peak Velocity 305.0 cm/s LVOT Peak Velocity 150.0 cm/s AV Area Cont Eq vti 1.6 cm squared AV Area Cont Eq pk 1.6 cm squared MV Peak Velocity 203.0 cm/s MV Area PHT 4.3 cm squared Mitral E to A Ratio 1.1 MV E' Velocity 102.5 cm/s Mitral E to MV E' Ratio 37.5 Mitral E to LV E' Lateral Ratio 32.6 Mitral E to LV E' Septal Ratio 45.2 TR Peak Velocity 273.1 cm/s TR Peak Gradient 29.8 mmHg TR Mean Velocity 220.1 cm/s TR Mean Gradient 22.8 mmHg TR Velocity Time Integral 59.8 cm Right Atrial Pressure 8.0 mmHg Pulmonary Artery Systolic Pressu 37.8 mmHg PV Peak Velocity 128.7 cm/s RV Acceleration Time 0.1 s RV Ejection Time 0.3 s RV AcT/ET 0.4 FINDINGS Left Ventricle This is a poor quality study. The ventricle is seen only in the apical view. There is probably normal left ventricular size and function. Mild left ventricular hypertrophy. Due to the rhythm disturbance, diastolic function cannot be determined. Ejection fraction is 55 to 60%. There are no obvious wall motion disturbances. Right Ventricle Normal right ventricular size and systolic function. Mild pulmonary hypertension, RVSP 37.8 mmHg. Right Atrium Normal right atrial size. Right atrial pressure is slightly elevated probably in the 8 to 10 mmHg range. Left Atrium The left atrium is normal in size. Mitral Valve Mitral valve not well visualized. No mitral valve regurgitation. Moderate mitral annular calcification. Aortic Valve Aortic valve is poorly seen. There is some thickening of the valve with mild calcification. There is likely some degree of aortic stenosis though it is difficult to interrogate the valve. No obvious aortic insufficiency. Mild aortic valve stenosis, mean gradient 20 mmHg, ANDRIY 1.6 cm squared. Tricuspid Valve Tricuspid valve not well visualized. Pulmonic Valve Pulmonic valve not well visualized. Pericardium There is a small hemodynamically insignificant pericardial effusion primarily noted along the right ventricular and right atrial border. There is right atrial systolic collapse but not right atrial diastolic collapse and no right ventricular collapse. Aorta Normal ascending aorta dimension. IVC Inferior vena cava is dilated. 1 cannot determine if it collapses upon respiration. CONCLUSIONS This is a poor quality study. The ventricle is seen only in the apical view. There is probably normal left ventricular size and function. Mild left ventricular hypertrophy. Due to the rhythm disturbance, diastolic function cannot be determined. Ejection fraction is 55 to 60%. There are no obvious wall motion disturbances. Normal right ventricular size and systolic function. Mild pulmonary hypertension, RVSP 37.8 mmHg. Normal right atrial size. Right atrial pressure is slightly elevated probably in the 8 to 10 mmHg range. Mitral valve not well visualized. No mitral valve regurgitation. Moderate mitral annular calcification. Aortic valve is poorly seen. There is some thickening of the valve with mild calcification. There is likely some degree of aortic stenosis though it is difficult to interrogate the valve. No obvious aortic insufficiency. Mild aortic valve stenosis, mean gradient 20 mmHg, ANDRIY 1.6 cm squared. There is a small hemodynamically insignificant pericardial effusion primarily noted along the right ventricular and right atrial border. There is right atrial systolic collapse but not right atrial diastolic collapse and no right ventricular collapse. Inferior vena cava is dilated. 1 cannot determine if it collapses upon respiration. Previous study done 01/17/2021. On this study the atrial fibrillation is new as is the pericardial effusion. Aortic stenosis is new. Dr. Marty Grayson MD (Electronically Signed) Final Date: 10 November 2022 09:22 S
[2022-11-09] MEDS: heparin drip 25,000 UNIT/500 ML PREMIX 24.13 UNIT IV (09:04)
[2022-11-09 09:11] LABS: INR 0.91 (0.8-1.2)
--- NOTE | 2022-11-09 09:15 | USR_ITS ---
PROCEDURE INFORMATION: Exam: US Duplex Lower Extremity Veins, Bilateral Exam date and time: 11/09/2022 4:54 PM Age: 82 years old Clinical indication: Other: Stasis; Additional info: Dvt TECHNIQUE: Imaging protocol: Real-time duplex ultrasound of the bilateral extremities with 2-D stephenson scale, color Doppler flow and spectral waveform analysis including responses to compression and other maneuvers (when performed) with image documentation. Complete exam focused on the lower extremity veins. COMPARISON: MR knee LT wo con* [id number] 01/23/2017 11:07 AM FINDINGS: Right deep veins: The common femoral, femoral, proximal profunda femoral, popliteal, posterior tibial, and peroneal veins are patent without thrombus. Normal compressibility and/or augmentation response. Left deep veins: The common femoral, femoral, proximal profunda femoral, popliteal, posterior tibial, and peroneal veins are patent without thrombus. Normal compressibility and/or augmentation response. Superficial veins: Bilateral saphenofemoral junctions are patent without thrombus. Soft tissues: Mild subcutaneous edema in the right lower extremity. US/CV venous duplex [facility] [id number] IMPRESSION: 1. No evidence for deep venous thrombosis in the right or left lower extremities. 2. Mild subcutaneous edema in the right lower extremity.
[2022-11-09 09:16] LABS: Magnesium 2.1 mg/dL (1.7-2.3)
[2022-11-09] MEDS: levofloxacin-dextrose 5 % 750 MG/150 ML PREMIX 100 MG IV (09:17)
--- NOTE | 2022-11-09 09:17 | P.HP_ITS ---
Providers/Chief Complaint Admitting Physician: Melvin Tovar MD Primary Care Provider: Kalyan Mejia MD Chief Complaint: SOB History of Present Illness Nimo Kennedy is a 82 year old female insulin-dependent type 2 diabetes mellitus, peripheral vascular disease, dyslipidemia, aortic valve sclerosis, CKD stage III, diastolic CHF, LVH, prior history of smoking, currently being investigated for peripheral vascular disease who presents to [facility] due to sudden onset of shortness of breath, cough, patient tells me that she has been doing fine recently, she has been seeing Dr. Garcia for peripheral vascular disease, no lower extremity pain, no rest pain, no lower extremity discoloration, she does report left leg swelling which is acute on chronic, denies any recent shortness of breath, no fevers, chills, she went to bed, and she woke up, having a severe cough, nonproductive, no hemoptysis, and she felt short of breath with this, no chest pain, no palpitations, or shortness of breath persisted with exertion, such as getting up out of bed, no lighthea dedness, no dizziness, due to significance of her symptoms, she called her grandson to bring her to [facility], in the emergency room, she was found to have A-fib with RVR, she was given Cardizem push followed by IV Cardizem, currently she is in A-fib, heart rates in the 90s, blood pressure 100s over 60s, she is alert oriented x3, denies any headaches, no blurry vision, no nausea, no vomiting, no facial droop, she was also given Levaquin for possible pneumonia, she was given steroids for possible COPD, patient was shocked to learn that she has COPD she tells me that she has never been told that she has COPD, in terms of her insulin she takes Tresiba 72 units in the morning, 60 uni ts in the evening, she has not used her Tresiba this morning, and she uses a NovoLog sliding scale, she has not taken any of her medications,, currently in the ICU, on a Cardizem drip, I have started her on a heparin drip Review of Systems Const: Denies: fever(s) or chills Eyes: Denies: change in vision ENMT: Denies: throat pain Card: Denies: chest pain Resp: Reports: dyspnea and non-productive cough GI: Denies: abdominal pain : Denies: flank pain or difficulty voiding Musc: Denies: neck pain or back pain Skin/Breast: Denies: rash Neuro: Denies: headache(s), numbness in extremities, weakness in extremities, sensory changes or dizziness Psych: Denies: anxiety Endo: Denies: polyuria Medications/Allergies Home Medications Medication Instructions Recorded Confirmed Last Taken Type multivitamin 1 tab PO QAM 04/05/19 11/09/22 11/08/22 History blood-glucose meter (Accu-Chek #1 ea 11/18/19 11/09/22 Unknown Rx Daphne Plus Meter) lancets (Accu-Chek Fastclix Lancet #200 ea 11/18/19 11/09/22 Unknown Rx Drum) calcium carbonate 500 mg calcium 500 mg PO DAILY 02/27/20 11/09/22 11/08/22 History (1,250 mg) capsule (Calci-Mix) aspirin 325 mg tablet 325 mg PO DAILY 01/29/21 11/09/22 11/08/22 History blood-glucose meter,continuous #1 ea 05/16/21 11/09/22 Unknown Rx (Dexcom G6 Timber Robber) blood-glucose transmitter (Dexcom #1 ea 05/16/21 11/09/22 Unknown Rx G6 Transmitter device) cholecalciferol (vitamin D3) 10 25 mcg PO DAILY 05/16/21 11/09/22 11/08/22 History mcg (400 unit) capsule insulin lispro 100 unit/mL See Rx Instructions .Route 08/23/21 11/09/22 11/08/22 Rx subcutaneous pen (Humalog KwikPen .COMPLEX #27 mL (U-100) Insulin) insulin degludec 200 unit/mL (3 See Rx Instructions .Route 09/23/21 11/09/22 11/08/22 Rx mL) subcutaneous pen (Tresiba .COMPLEX #101 mL FlexTouch U-200 insulin) blood-glucose sensor (Dexcom G6 #3 ea 10/01/21 11/09/22 Unknown Rx Sensor device) blood sugar diagnostic (Accu-Chek #200 ea 10/23/21 11/09/22 Unknown Rx Daphne Plus test strips) pen needle, diabetic 31 gauge x #200 ea 10/23/21 11/09/22 Unknown Rx 3/16 (BD Ultra-Fine Mini Pen Needle) potassium chloride 8 mEq 8 meq PO DAILY #100 tabs 11/27/21 11/09/22 11/08/22 Rx tablet,extended release furosemide 20 mg tablet (Lasix) 20 mg PO DAILY PRN edema #90 tabs 12/12/21 11/09/22 11/08/22 Rx carvedilol 12.5 mg tablet 12.5 mg PO BID #180 tabs 04/15/22 11/09/22 11/08/22 Rx lisinopril 40 mg tablet 20 mg PO DAILY 04/15/22 11/09/22 11/08/22 History cilostazol 100 mg tablet 100 mg PO BID #60 tabs 10/29/22 11/09/22 11/08/22 Rx gabapentin 100 mg capsule 200 mg PO QPM 10/29/22 11/09/22 11/08/22 History amlodipine 10 mg tablet See Rx Instructions .Route .COMPLEX 11/09/22 11/09/22 11/08/22 History mirabegron 25 mg tablet,extended 25 mg PO DAILY 11/09/22 11/09/22 11/08/22 History release 24 hr (Myrbetriq) ohzzt-0o-ock-epa-fish oil 120 1 cap PO DAILY 11/09/22 11/09/22 11/08/22 History mg-180 mg-60 mg-1,200 mg capsule, DR (Fish Oil) rosuvastatin 20 mg tablet 20 mg PO QPM 11/09/22 11/09/22 11/08/22 History Allergies Allergy/AdvReac Type Severity Reaction Status Date / Time codeine Allergy Unknown Verified 11/09/22 08:12 erythromycin base Allergy Unknown Verified 11/09/22 08:12 PFSH Acute PFSH: Medical History Acute bronchitis and bronchiolitis Benign mass of parotid gland DJD (degenerative joint disease) Dyslipidemia Essential (primary) hypertension History of malignant melanoma History of nonmelanoma skin cancer Incomplete emptying of bladder Left anterior knee pain Nocturia Proteinuria PVD (peripheral vascular disease) Recurrent UTI Tuberculosis Type 2 diabetes mellitus, with long-term current use of insulin Urgency incontinence Urinary urgency Surgical History H/O breast biopsy H/O section H/O: hysterectomy History of surgery on lower extremity History of tonsillectomy Family History Mother , at age 93 Diabetes CAD (coronary artery disease) Brother Leukemia Cancer Diabetes Family/Other Cancer Diabetes Daughter Chronic kidney disease (CKD) Cancer Father , at age 83 Stroke Grandmother Cancer Denies family history of Clotting disorder Dementia Suicide Anesthesia complication Bleeding disorder Lung disease Social History Smoking and tobacco status: former smoker Alcohol intake: current Alcohol intake frequency: holidays/special occasions only Substance/Drug Use: never Adopted: No Caregiver/support person: No Household members: family Marital status: Current occupational status: retired Vitals/I&O/Wt Last Vital Signs Temp 97.9 F 11/09/22 06:33 Pulse 95 11/09/22 08:09 Resp 26 H 11/09/22 07:58 BP 99/66 11/09/22 07:45 Pulse Ox 91 11/09/22 07:58 O2 Del Method Nasal Cannula 11/09/22 07:58 O2 Flow Rate 6 11/09/22 07:58 11/08/22 11/09/22 11/09/22 22:59 06:59 14:59 Intake Total 1.75 / 1.75 Balance 1.75 / 1.75 Weight last 48 hrs Weight 86.183 kg Physical Exam Const: COMMON NORMALS: no acute distress and patient oriented x3 GENERAL APPEARANCE: cooperative, well kempt and well developed HENMT: COMMON NORMALS: normocephalic and Normal external nose present HEAD & SCALP: normocephalic FACE & SINUS: normal facial exam NOSE: Normal external nose present Eye: COMMON NORMALS: Equal, round and reactive pupils present, EOMs intact bi laterally, conjunctivae normal and no scleral icterus CONJUNCTIVA: Yes co njunctivae normal PUPIL: Yes Equal, round and reactive pupils present Neck/C-Spine: COMMON NORMALS: full ROM, no lymphadenopathy, no JVD and No carotid bruits THYROID: Thyroid normal Lymph: LYMPHATIC: no lymphadenopathy noted Chest: COMMONS NORMALS: normal inspection of the chest Resp: COMMON NORMALS: normal respiratory effort, No retractions, No use of accessory muscles and clear to auscultation bilaterally AUSCULTATION: clear to auscultation bilaterally Cardio: COMMON NORMALS: S1 normal heart sound present, S2 normal heart sound present, No murmurs present (Cardio) and Peripheral pulses 2+ throughout RATE: regular rate RHYTHM: regular rhythm HEART SOUNDS: S1 normal heart sound present and S2 normal heart sound present PERIPHERAL PULSES: Peripheral pulses 2+ throughout GI: COMMON NORMALS: Normal to inspection, nondistended, normoactive bowel sounds present, Soft to palpation and non-tender PALPATION: Yes Soft to palpation : BLADDER/KIDNEY EXAM: Yes no CVA tenderness Back/Pelvis: COMMON NORMALS: no CVA tenderness Extremity: NARRATIVE EXTREMITY EXAM: Left leg, swelling, no calf pain, no calf swelling DP PT pulses difficult to ascertain Neuro: COMMON NORMALS: patient oriented x3, CN's II-XII intact bilaterally, moves all extremities, no focal motor deficits and no sensory deficits noted MENINGEAL SIGNS: Yes no meningeal signs Psych: COMMON NORMALS: mental status grossly normal, Normal thought process present, cooperative and speech normal APPEARANCE: Yes well kempt SPEECH: Yes normal speech THOUGHT PROCESS: Normal thought process present Skin: COMMON NORMALS: turgor normal and no jaundice GENERAL SKIN EXAM: turgor normal Data 11/09/22 06:45 11/09/22 06:45 Micro: Microbiology 11/09/22 08:56 Blood Culture - Preliminary Blood SPECIMEN COLLECTED 11/09/22 08:50 Blood Culture - Preliminary Blood SPECIMEN COLLECTED A&P Assessment and plan (1) Atrial fibrillation with rapid ventricular response: (2) Acute respiratory failure with hypoxia: (3) Congestive heart failure (CHF): (4) Pneumonia: (5) PVD (peripheral vascular disease): (6) Dyslipidemia: (7) Essential (primary) hypertension: (8) Type 2 diabetes mellitus, with long-term current use of insulin: (9) Left leg swelling: (10) Goals of care, counseling/discussion: (11) CHF exacerbation: (12) NSTEMI (non-ST elevated myocardial infarction): (13) Pulmonary edema: Plan Acute hypoxic respiratory failure -Likely secondary to fluid overload, pulm edema, A-fib fib with RVR BNP over 1300 -Chest x-ray shows radiographic evidence of possible interstitial lung disease, she denies a history of COPD, she quit smoking many years ago -She was given Levaquin in the ER for pneumonia as she has patchy infiltrates bilateral lung bases Plan -Monitor respiratory status closely -Continue oxygen therapy, wean as tolerated -We will dose Lasix -Cardiac echo -Order D-dimer, will consider CT angiogram of the chest due to sudden onset of her symptoms -Has been given Levaquin in the ER, following CT results will consider continuing antibiotic therapy or broadening antibiotic therapy -She is being given steroids for possible interstitial lung disease, COPD, will await CT of the chest findings A-fib with RVR -TSH, mag -Continue Cardizem drip -Add Cardizem 60 every 6 -Continue Coreg 12.5 mg twice daily -Start heparin drip -Cardiac echo Pneumonia -Sputum cultures -Respiratory viral panel -Urine bacterial antigens -Blood cultures -Further antibiotic dosing based on CT chest findings, clinical progress, Pro- Robson, CRP Left lower extremity swelling -Venous ultrasound Diastolic CHF -currently in exacerbation -As above Pulmonary edema as above NSTEMI -Serial EKGs, serial troponins, telemetry monitoring -Type I versus type II -Cardiac echo -Aspirin, statin Peripheral vascular disease Arterial ultrasound October 13, 2022 CONCLUSIONS ?1.? Abnormal resting SDAI and waveforms on the right side, ?suggesting high-grade stenosis, possibly involving the ostium of ?the common iliac artery on the right side.? Possible collateral ?filling in the infrapopliteal vessels. ?2.? Normal resting SADI on the left side with abnormal arterial ?Doppler velocities and waveforms, suggesting moderate peripheral ?artery disease mostly involving the iliac vessels. -Patient has an aortogram scheduled -Continue aspirin, continue heparin drip -hold cilostazol due to interaction with Cardizem Type 2 diabetes mellitus -Lantus 50 units twice daily -High-dose sliding scale Goals of care discussion -I had extensive goals of care discussion with patient -She tells me that she is a good [employer], and that if it is time for her to go it is time for her to go -She does not want chest compressions, she does not want any shocking, she does not want any drugs per ACLS, she does not want to be intubated she does not want to be electively admitted DNR/DNI Heparin drip for DVT prophylaxis Attestations Medical Necessity Statement*: Patient requires hospitalization, inpatient, greater than 2 midnights for A-fib with RVR, acute hypoxic respite failure sec to 2 fluid overload, pulm edema, pneumonia, NSTEMI, left leg swelling, Coding Level of Care Code Critical Care >/= 30 minutes Critical care time (in minutes): 50 The high probability of a clinically significant, sudden or life threatening deterioration, as referenced in this documentation, required my full and direct attention, intervention and personal management. The critical care time shown is in addition to time spent performing any reported separately billable procedures and includes the following: [x] Data and vital sign review and interpretation [x ] Patient assessment, examination and intervention [x] Medication orders and man agement [x] Patient/Family updates as able [x] Care Coordination and Documentation. Diagnoses Atrial fibrillation with rapid ventricular response I48.91 Acute respiratory failure with hypoxia J96.01 Congestive heart failure (CHF) I50.9 Pneumonia J18.9 PVD (peripheral vascular disease) I73.9 Dyslipidemia E78.5 Essential (primary) hypertension I10 Type 2 diabetes mellitus, with long-term current use of insulin E11.9; Z79.4 Left leg swelling M79.89 Goals of care, counseling/discussion Z71.89 CHF exacerbation I50.9 NSTEMI (non-ST elevated myocardial infarction) I21.4 Pulmonary edema J81.1
[2022-11-09] MEDS: pantoprazole 40 mg SDV IVP ×2 (09:21→20:58)
[2022-11-09 09:38] LABS: D Dimer 0.37 ug/mIFEU (0-0.59)
[2022-11-09 09:40] LABS: Troponin 5 2HR 27.34 ng/L (0-10)
[2022-11-09 09:43] LABS: Procalcitonin 4.65 ng/mL (0-0.5)
[2022-11-09 09:45] LABS: Troponin 5 2HR Delta 5.34 ABS# (0-10)
[2022-11-09 09:47] LABS: Chol HDL Ratio 1.87 mg/dL (0.0-4.40); Cholesterol 114 mg/dL (0-200); HDL Cholesterol 61 mg/dL (60-100); LDL Cholesterol Calculated 38 mg/dL (50-129); LDL HDL Ratio 0.62 RATIO (0.00-3.22); Thyroid Stimulating Hormone 0.41 uIU/mL (0.27-4.20); Triglycerides 75 mg/dL (0-150)
--- NOTE | 2022-11-09 09:53 | CTR_ITS ---
PROCEDURE INFORMATION: Exam: CTA Chest With Contrast Exam date and time: 11/09/2022 11:46 AM Age: 82 years old Clinical indication: Shortness of breath; Additional info: SOB TECHNIQUE: Imaging protocol: Computed tomographic angiography of the chest with contrast. Exam focused on the arteries. 3D rendering (Not supervised by radiologist): MIP and/or 3D reconstructed images were created by the technologist. Total images: 1 Radiation optimization: All CT scans at this facility use at least one of these dose optimization techniques: automated exposure control; mA and/or kV adjustment per patient size (includes targeted exams where dose is matched to clinical indication); or iterative reconstruction. Contrast material: OMNI 350; Contrast volume: 71 ml; Contrast route: INTRAVENOUS (IV); REPORTING DATA: Count of CT and Cardiac NM exams in prior 12 months: This patient has received 0 known CTs and 0 known cardiac nuclear medicine studies in the 12 months prior to the current study. COMPARISON: CR (CHEST, ) 11/09/2022 6:57 AM RADIATION DOSE METRICS: Total DLP (mGy-cm): 495.48 FINDINGS: Pulmonary arteries: Pulmonary artery evaluation of good technical quality with no pulmonary artery embolism identified. Pulmonary vascular congestion. Aorta: Unremarkable. No aortic aneurysm. No aortic dissection. Other arteries: Moderate atherosclerotic disease is evident. Lungs: Nonspecific opacity in the right lower lobe, with ground-glass and interstitial opacities as well as masslike areas of consolidation. Findings felt to represent pneumonia. Follow-up study after treatment would be prudent to exclude underlying mass. Pleural spaces: Moderate right and small left pleural effusions. Heart: Cardiomegaly. There is a small pericardial fluid collection present. Lymph nodes: Numerous enlarged mediastinal and right hilar lymph nodes felt to be reactive. Largest node is seen in the pretracheal space with short axis diameter of 2.5 cm. Second largest node is in the right hilar area measuring 1.5 cm in short axis diameter. Bones/joints: Unremarkable. No acute fracture. Soft tissues: Unremarkable. CT/CT angio chest PE protcl [id number] IMPRESSION: 1. Moderate right and small left pleural effusions. 2. Nonspecific opacity in the right lower lobe, with ground-glass and interstitial opacities as well as masslike areas of consolidation. Findings felt to represent pneumonia. Follow-up study after treatment would be prudent to exclude underlying mass. 3. No pulmonary artery embolism identified. 4. Numerous enlarged mediastinal and right hilar lymph nodes felt to be reactive. Largest node is seen in the pretracheal space with short axis diameter of 2.5 cm. Second largest node is in the right hilar area measuring 1.5 cm in short axis diameter. 5. Cardiomegaly with pulmonary vascular congestion. 6. There is a small pericardial fluid collection present.
[2022-11-09 10:00] LABS: Estmated Average Glucose 169; Hemoglobin A1C 7.5 % (4.0-6.0)
[2022-11-09] MEDS: aspirin 81 mg EC Tablet PO (10:00)
[2022-11-09] MEDS: dilTIAZem 60 mg Tablet PO (10:00)
[2022-11-09] MEDS: insulin glargine 100 units/1 mL 50 UNIT SUBCUT ×2 (10:00→20:58)
[2022-11-09] MEDS: cefTRIAXone 1,000 MG in sodium chloride 0.9% (plus) 50 ML 100 MG IV (11:13)
[2022-11-09 11:24] LABS: Glucose Point of Care 352 mg/dL (70-110)
[2022-11-09] MEDS: iohexol 350 mg/mL 500 mL Btl (per mL) IV (11:47)
[2022-11-09] MEDS: insulin lispro 100 unit/1 mL SUBCUT ×2 (12:18→17:31)
[2022-11-09] MEDS: azithromycin 500 MG in sodium chloride 0.9% 250 ML 250 MG IV (12:19)
--- NOTE | 2022-11-09 12:38 | ECG_ITS ---
[facility] Test Date: 2022-11-09 Pat Name: Nimo Kennedy Department: Room: [facility] Gender: Female Apiculturist: : 1940 Requested By: Jack Perez Order Number: [id number] Celena MD: Marty Grayson M.D. Measurements Intervals [place] Rate: 125 P: 0 CO: 0 QRS: 28 QRSD: 97 T: 78 QT: 320 QTc: 462 Interpretive Statements ATRIAL FIBRILLATION WITH RAPID VENTRICULAR RESPONSE SEPTAL MYOCARDIAL INFARCTION , PROBABLY OLD [40+ ms Q WAVE IN V1/V2] Compared to ECG 11/09/2022 07:53:37 No significant changes Electronically Signed On 11-09-2022 18:26:27 CDT by Marty Grayson M.D. [email or web address]
[2022-11-09 14:44] LABS: Troponin 5 6HR 25.34 ng/L (0-10)
[2022-11-09 14:45] LABS: Troponin 5 6HR Delta 3.34 ng/L (0-12)
--- NOTE | 2022-11-09 14:56 | PC.NURSE ---
Received patient from ER staff. Temp: 97.8, BP: 120/99, SPO2: 91% on 4 LNC, HR 115. Patient is on 10 of diltiazem. ALert and oriented to person, place, time, and situation.
--- NOTE | 2022-11-09 14:58 | PC.NURSE ---
Cardizem has not been effective at controlling heart rate despite being at max rate for many hours. Nurse alerted Dr valentin and received orders to change diltiazem to amiodarone.
[2022-11-09 15:36] LABS: Partial Thromboplastin Time 42.2 SECONDS (23.9-36.7)
[2022-11-09 16:59] LABS: Glucose Point of Care 197 mg/dL (70-110)
[2022-11-09] MEDS: atorvastatin 40 mg Tablet 80 MG PO (17:31)
[2022-11-09] MEDS: gabapentin 100 mg Capsule 200 MG PO (17:31)
[2022-11-09] MEDS: oxybutynin 5 mg Tablet PO (18:22)
--- NOTE | 2022-11-09 18:26 | PC.NURSE ---
Shift SUmmary: Uneventful shift. Patient came form ER this morning for AFIB w RVR and shortness of breath. While in ICU she rested in bed throughout the day, occaisonally getting up to use the restroom. On 4L NC. Cardizem was ineffective so she was switched over to amiodarone. Still in AFIB at this time, rate ranging between 90-110.
[2022-11-09] MEDS: FUROsemide 10 mg/mL SDV 4mL 40 MG IVP (18:59)
[2022-11-09 19:40] LABS: Adenovirus Not Detected (NOT DETECT); Chlamydia Pneumoniae Not Detected (NOT DETECT); Coronavirus 229E,HKU1,NL63,OC4 Not Detected (NOT DETECT); Human Metapneumovirus Not Detected (NOT DETECT); Human Rhinovirus/Enterovirus Not Detected (NOT DETECT); Influenza A Not Detected (NOT DETECT); Influenza A H1 Not Detected (NOT DETECT); Influenza A H1-2009 Not Detected (NOT DETECT); Influenza A H3 Not Detected (NOT DETECT); Influenza B Not Detected (NOT DETECT); Mycoplasma Pneumoniae Not Detected (NOT DETECT); Parainfluenza Virus Type 1 Not Detected (NOT DETECT); Parainfluenza Virus Type 2 Not Detected (NOT DETECT); Parainfluenza Virus Type 3 Not Detected (NOT DETECT); Parainfluenza Virus Type 4 Not Detected (NOT DETECT); Respiratory Syncytial Virus A Not Detected (NOT DETECT); Respiratory Syncytial Virus B Not Detected (NOT DETECT); SARS-COV-2 Not Detected (NOT DETECT)
[2022-11-09 21:06] LABS: Glucose Point of Care 204 mg/dL (70-110)
[2022-11-09 22:22] LABS: Partial Thromboplastin Time 64.4 SECONDS (23.9-36.7)
[2022-11-10] VITALS (73 sets, daily range): BP systolic 88–170; BP diastolic 60–94; PULSE 74–109; RESP 15–41; TEMP 36.5–36.7; O2SAT 87–92
[2022-11-10] MEDS: heparin drip 25,000 UNIT/500 ML PREMIX 27.58 UNIT IV (03:00)
[2022-11-10 03:42] LABS: Basophils % 0.1 %; Eosinophils % 0.1 %; Hematocrit 47.7 % (37.0-47.0); Hemoglobin 15.3 g/dL (11.5-15.3); Lymphocytes # 0.8 10^3/uL (0.8-4.8); Lymphocytes % 5.9 %; Mean Corpuscular HGB Conc 32.1 g/dL (30.0-36.0); Mean Corpuscular Volume 90.5 fl (81-99); Mean Platelet Volume 11.8 fL (7.4-10.4); Monocytes # 0.8 10^3/uL (0.2-0.9); Monocytes % 5.7 %; Neutrophils # 12.56 10^3/uL (1.8-7.7); Neutrophils % 87.7 %; Nucleated Red Blood Cells % 0 %; Platelet Count 233 10^3/cmm (130-400); Red Blood Count 5.27 10^6/uL (4.1-5.3); Red Cell Distribution Width 14.6 % (12.1-15.1); White Blood Count 14.3 10^3/uL (4.0-10.0)
[2022-11-10 04:10] LABS: Phosphorus 4.2 mg/dL (2.5-4.5)
[2022-11-10 04:18] LABS: NT Pro B Type Natriuretic Pept 1887 pg/mL (0-450); Procalcitonin 4.95 ng/mL (0-0.5)
[2022-11-10 05:08] LABS: Partial Thromboplastin Time 92.3 SECONDS (23.9-36.7)
[2022-11-10 08:05] LABS: Glucose Point of Care 121 mg/dL (70-110)
[2022-11-10 08:49] LABS: Anion Gap 14.8 (5-19); Blood Urea Nitrogen 17 mg/dL (8-23); Calcium 8.3 mg/dL (8.5-10.5); Carbon Dioxide 30 mmol/L (22-29); Chloride 100 mmol/L (98-107); Glucose 162 mg/dL (65-115); Osmolality Calculated 297 mOsm/kg (285-295); Potassium 3.8 mmol/L (3.5-5.1); Sodium 141 mmol/L (136-145)
[2022-11-10] MEDS: pantoprazole 40 mg SDV IVP (09:23)
[2022-11-10] MEDS: FUROsemide 10 mg/mL SDV 4mL 40 MG IVP ×2 (09:23→11:24)
[2022-11-10] MEDS: carvedilol 12.5 mg Tablet PO ×2 (09:24→17:02)
[2022-11-10] MEDS: aspirin 81 mg EC Tablet PO (09:24)
[2022-11-10] MEDS: insulin glargine 100 units/1 mL 50 UNIT SUBCUT ×2 (09:24→22:27)
[2022-11-10] MEDS: amiodarone 200 mg Tablet 400 MG PO ×2 (09:24→17:02)
[2022-11-10] MEDS: azithromycin 500 MG in sodium chloride 0.9% 250 ML 250 MG IV (10:15)
[2022-11-10] MEDS: cefTRIAXone 1,000 MG in sodium chloride 0.9% (plus) 50 ML 100 MG IV (10:16)
[2022-11-10 11:17] LABS: Glucose Point of Care 249 mg/dL (70-110)
[2022-11-10] MEDS: apixaban 5 mg Tablet PO ×2 (11:24→22:26)
[2022-11-10] MEDS: insulin lispro 100 unit/1 mL SUBCUT (11:26)
--- NOTE | 2022-11-10 14:06 | P.PN_ITS ---
Subjective Subjective: Patient was seen this morning, she tells me she feels significantly better, no chest pain, no palpitations, she is off the amiodarone drip, she is still on the heparin drip, denies any fevers, no chills, no cough she tells me that she does not want to go to a skilled nursing, she wants to see how she can do with physical therapy here, she does not want to be a burden on anyone if she goes home Vitals/I&O/Wt Last Vital Signs Temp 98.1 F 11/10/22 08:00 Pulse 109 H 11/10/22 09:45 Resp 18 11/10/22 09:45 BP 155/80 11/10/22 05:00 Pulse Ox 91 11/10/22 09:45 O2 Del Method Nasal Cannula 11/10/22 09:45 O2 Flow Rate 4 11/10/22 09:45 11/09/22 11/10/22 11/10/22 22:59 06:59 14:59 Intake Total 1016.519 / 1670.769 361.298 / 2032.067 360 / 360 Output Total 1999 Balance 1016.519 / 1670.769 -1638.702 / 32.067 360 / 360 Weight last 48 hrs Weight 86.183 kg Physical Exam Const: COMMON NORMALS: no acute distress and patient oriented x3 Resp: COMMON NORMALS: normal respiratory effort, No retractions, No use of accessory muscles and clear to auscultation bilaterally AUSCULTATION: clear to auscultation bilaterally Cardio: COMMON NORMALS: regular rate, S1 normal heart sound present and S2 normal heart sound present RATE: regular rate RHYTHM: abnormal rhythm irregularly irregular HEART SOUNDS: S1 normal heart sound present and S2 normal heart sound present GI: COMMON NORMALS: Normal to inspection, nondistended, normoactive bowel sounds present and non-tender Extremity: COMMON NORMALS: no pedal edema Neuro: COMMON NORMALS: patient oriented x3 Psych: COMMON NORMALS: mental status grossly normal Urinary Catheter Management: Aquino: Cath Placed During This Visit: yes Reason for Continuing Indwelling Catheter: Accurate Measurement of Urinary Output in Critically Ill Patients Urinary Catheter Date of Insertion: 11/09/22 Urinary Catheter Time of Insertion: 20:11 Data 11/10/22 03:32 11/10/22 03:52 Micro: Microbiology 11/09/22 08:56 Blood Culture - Preliminary Blood NEGATIVE TO DATE 11/09/22 08:50 Blood Culture - Preliminary Blood NEGATIVE TO DATE 11/09/22 18:30 Bacterial Antigens - Final Urine,Clean Catch A&P Assessment and plan (1) Atrial fibrillation with rapid ventricular response: (2) Acute respiratory failure with hypoxia: (3) Congestive heart failure (CHF): (4) Pneumonia: (5) PVD (peripheral vascular disease): (6) Dyslipidemia: (7) Essential (primary) hypertension: (8) Type 2 diabetes mellitus, with long-term current use of insulin: (9) Left leg swelling: (10) Goals of care, counseling/discussion: (11) CHF exacerbation: (12) NSTEMI (non-ST elevated myocardial infarction): (13) Pulmonary edema: (14) Bilateral pleural effusion: (15) Mediastinal lymphadenopathy: (16) Pericardial effusion: Plan Acute hypoxic respiratory failure -Likely secondary to fluid overload, pulm edema, A-fib fib with RVR BNP over 1300 -Chest x-ray shows radiographic evidence of possible interstitial lung disease, she denies a history of COPD, she quit smoking many years ago -She was given Levaquin in the ER for pneumonia as she has patchy infiltrates bilateral lung bases, Pro-Robson elevated at 4, leukocytosis CT angiogram of the chest shows 1. ? Moderate right and small left pleural effusions. 2. ? Nonspecific opacity in the right lower lobe, with ground-glass and interstitial opacities as well as masslike areas of consolidation. Findings felt to represent pneumonia. Follow-up study after treatment would be prudent to exclude underlying mass. 3. ? No pulmonary artery embolism identified. 4. ? Numerous enlarged mediastinal and right hilar lymph nodes felt to be reactive. Largest node is seen in the pretracheal space with short axis diameter of 2.5 cm. Second largest node is in the right hilar area measuring 1.5 cm in short axis diameter. 5. ? Cardiomegaly with pulmonary vascular congestion. 6. ? There is a small pericardial fluid collection present. Plan -Monitor respiratory status closely -Continue oxygen therapy, wean as tolerated -1 dose Lasix today -Continue Rocephin, azithromycin A-fib with RVR -Off amiodarone drip, continue amiodarone 400 twice daily -Stop heparin drip switch to Eliquis 5 mg twice daily -Continue Coreg 12.5 mg twice daily -Cardiac echo CONCLUSIONS ?This is a poor quality study.? The ventricle is seen only in the ?apical view.? There is probably normal left ventricular size and ?function.? Mild left ventricular hypertrophy.? Due to the rhythm ?disturbance, diastolic function cannot be determined.? Ejection ?fraction is 55 to 60%.? There are no obvious wall motion ?disturbances. ?Normal right ventricular size and systolic function. Mild ?pulmonary hypertension, RVSP 37.8 mmHg. ?Normal right atrial size.? Right atrial pressure is slightly ?elevated probably in the 8 to 10 mmHg range. ?Mitral valve not well visualized. No mitral valve regurgitation. ?Moderate mitral annular calcification. ?Aortic valve is poorly seen.? There is some thickening of the ?valve with mild calcification.? There is likely some degree of ?aortic stenosis though it is difficult to interrogate the valve.? ?No obvious aortic insufficiency. Mild aortic valve stenosis, ?mean gradient 20 mmHg, ANDRIY 1.6 cm squared. ?There is a small hemodynamically insignificant pericardial ?effusion primarily noted along the right ventricular and right ?atrial border.? There is right atrial systolic collapse but not ?right atrial diastolic collapse and no right ventricular ?collapse. ?Inferior vena cava is dilated.? 1 cannot determine if it ?collapses upon respiration. ?Previous study done 01/17/2021.? On this study the atrial ?fibrillation is new as is the pericardial effusion.? Aortic ?stenosis is new. Pneumonia -CT angiogram of the chest 2. ? Nonspecific opacity in the right lower lobe, with ground-glass and interstitial opacities as well as masslike areas of consolidation. Findings felt to represent pneumonia. Follow-up study after treatment would be prudent to exclude underlying mass. -Sputum cultures -Urine bacterial antigens -Blood cultures -Currently on Rocephin and azithromycin Left lower extremity swelling -Venous ultrasound negative for DVT Diastolic CHF -currently in exacerbation -As above Pulmonary edema as above NSTEMI -Serial EKGs, serial troponins, telemetry monitoring -Type I versus type II -Cardiac echo as above -Aspirin, statin Peripheral vascular disease Arterial ultrasound October 13, 2022 CONCLUSIONS ?1.? Abnormal resting SADI and waveforms on the right side, ?suggesting high-grade stenosis, possibly involving the ostium of ?the common iliac artery on the right side.? Possible collateral ?filling in the infrapopliteal vessels. ?2.? Normal resting SADI on the left side with abnormal arterial ?Doppler velocities and waveforms, suggesting moderate peripheral ?artery disease mostly involving the iliac vessels. -Patient has an aortogram scheduled -Continue aspirin, continue heparin drip -hold cilostazol due to interaction with Cardizem Type 2 diabetes mellitus -Lantus 50 units twice daily -High-dose sliding scale Bilateral pleural effusions, Lasix as above Has small pericardial effusion, echocardiogram findings as above, monitor, monitor hemodynamics closely Mediastinal lymphadenopathy, with CT angiogram findings, will need to follow-up with pulmonary as outpatient Goals of care discussion -I had extensive goals of care discussion with patient -She tells me that she is a good [employer], and that if it is time for her to go it is time for her to go -She does not want chest compressions, she does not want any shocking, she does not want any drugs per ACLS, she does not want to be intubated she does not want to be electively admitted DNR/DNI Eliquis for DVT prophylaxis Plan for today is to move to cardiac stepdown unit, continue Rocephin continue azithromycin, stop heparin drip switch to Eliquis 5 mg twice daily, amiodarone 400 twice daily, monitor respiratory status, PT OT Attestations Medical Necessity Statement*: Patient requires hospitalization for multifactorial respiratory failure secondary to bilateral pleural effusions, CHF, pneumonia, A-fib, NSTEMI and High MDM includes number and complexity of problems actively a ddressed during encounter, amount and/or complexity of data reviewed/ordered and described risk of complication, morbidity or mortality of management as documented Diagnoses Atrial fibrillation with rapid ventricular response I48.91 Acute respiratory failure with hypoxia J96.01 Congestive heart failure (CHF) I50.9 Pneumonia J18.9 PVD (peripheral vascular disease) I73.9 Dyslipidemia E78.5 Essential (primary) hypertension I10 Type 2 diabetes mellitus, with long-term current use of insulin E11.9; Z79.4 Left leg swelling M79.89 Goals of care, counseling/discussion Z71.89 CHF exacerbation I50.9 NSTEMI (non-ST elevated myocardial infarction) I21.4 Pulmonary edema J81.1 Bilateral pleural effusion J90 Mediastinal lymphadenopathy R59.0 Pericardial effusion I31.39
[2022-11-10 17:00] LABS: Glucose Point of Care 84 mg/dL (70-110)
[2022-11-10] MEDS: gabapentin 100 mg Capsule 200 MG PO (17:02)
[2022-11-10] MEDS: atorvastatin 40 mg Tablet 80 MG PO (17:02)
[2022-11-10 22:13] LABS: Glucose Point of Care 133 mg/dL (70-110)
--- NOTE | 2022-11-10 23:39 | PC.NURSE ---
Patient is transferred from ICU to CSU via a wheelchair at 2034. All of patient belongings arrived with her.
[2022-11-11] VITALS (10 sets, daily range): BP systolic 108–144; BP diastolic 58–82; PULSE 69–110; RESP 16–27; TEMP 36.5–37.1; O2SAT 88–95
[2022-11-11 04:34] LABS: Basophils % 0.1 %; Hematocrit 49.1 % (37.0-47.0); Hemoglobin 15.9 g/dL (11.5-15.3); Lymphocytes # 0.7 10^3/uL (0.8-4.8); Lymphocytes % 5.2 %; Mean Corpuscular HGB Conc 32.4 g/dL (30.0-36.0); Mean Corpuscular Volume 89.4 fl (81-99); Mean Platelet Volume 11.8 fL (7.4-10.4); Monocytes # 0.7 10^3/uL (0.2-0.9); Monocytes % 5.4 %; Neutrophils # 11.19 10^3/uL (1.8-7.7); Nucleated Red Blood Cells % 0 %; Platelet Count 221 10^3/cmm (130-400); Red Blood Count 5.49 10^6/uL (4.1-5.3); Red Cell Distribution Width 14.6 % (12.1-15.1); White Blood Count 12.6 10^3/uL (4.0-10.0)
[2022-11-11 04:56] LABS: Magnesium 1.9 mg/dL (1.7-2.3); Phosphorus 3.9 mg/dL (2.5-4.5)
[2022-11-11 05:04] LABS: NT Pro B Type Natriuretic Pept 786 pg/mL (0-450); Procalcitonin 5.22 ng/mL (0-0.5)
[2022-11-11 05:15] LABS: Anion Gap 11.9 (5-19); Blood Urea Nitrogen 17 mg/dL (8-23); Calcium 8.1 mg/dL (8.5-10.5); Carbon Dioxide 33 mmol/L (22-29); Chloride 98 mmol/L (98-107); Creatinine Clr Calc Pharmacy 63.5022; Glucose 67 mg/dL (65-115); Osmolality Calculated 290 mOsm/kg (285-295); Sodium 140 mmol/L (136-145)
[2022-11-11 05:24] LABS: Potassium 2.9 mmol/L (3.5-5.1)
[2022-11-11 06:35] LABS: Glucose Point of Care 72 mg/dL (70-110)
[2022-11-11] MEDS: pantoprazole DR 40 mg Tablet PO (09:00)
[2022-11-11] MEDS: carvedilol 12.5 mg Tablet PO ×2 (09:00→17:10)
[2022-11-11] MEDS: amiodarone 200 mg Tablet 400 MG PO ×2 (09:00→17:11)
[2022-11-11] MEDS: aspirin 81 mg EC Tablet PO (09:00)
[2022-11-11] MEDS: FUROsemide 10 mg/mL SDV 4mL 40 MG IVP (09:01)
[2022-11-11] MEDS: lidocaine 1% 5 ML in potassium chloride premix 100 ML 26.25 ML IV (09:01)
[2022-11-11] MEDS: insulin glargine 100 units/1 mL 50 UNIT SUBCUT (09:01)
[2022-11-11] MEDS: potassium chloride ER 20 mEq Tablet 40 MEQ PO (09:01)
--- NOTE | 2022-11-11 09:26 | PC.CHAP ---
Pastoral Care Encounter/Spiritual Assessment Type of Contact [] Declined key punch teacher visit [] Patient/Family/Request visit [] Outpatient visit [] Follow-up visit [] Physician referral [] Code/Alert [x] Routine visit [] Staff referral [] Actively dying [] Patient sleeping [] Family support [] [] Out of room [] Palliative care [] [] Receiving care in room [] Pre-surgical visit [] Trauma [] Long length of stay [] ICU visit [] Other: Relational/Emotional Strength [x] Patient feels connected with others/family/visitors/staff [] Distress [] Loneliness/isolation [] Abandonment Spirituality of Patient [x] Person of Kourtney [] Attends [employer] of their Kourtney [x] Believes in Prayer [] Reads Bible or Alevism materials [] There are Spiritual issues to be addressed Rubber Insulator Interventions [x] Prayer [x] Active listening [] Non-anxious presence [x] Spiritual/emotional support [] Crisis/trauma care [] Spiritual counseling [] Bereavement support [] Provided bereavement packet [] Provided Bible/devotional materials [] Provided toy/stuffed animal, coloring book to patient or family member [] Provided Communion [] Anointing/Seaview [] Salvation [x] Completed spiritual assessment [] Other: Impact on Illness or Injury [] Angry [] Fearful [] Anxious [] Often cries [] Exhaustion [] Unable to work [] Unable to attend advent [] Unable to walk/stand [] Unable to read [] Unable to drive [] Unable to eat/drink [] Unable to sleep [] Unable to be with family [] Patient intubated [] Other: Summary Time spent with patient 10 min
[2022-11-11] MEDS: apixaban 5 mg Tablet PO ×2 (11:08→19:52)
[2022-11-11] MEDS: cefTRIAXone 1,000 MG in sodium chloride 0.9% (plus) 50 ML 100 MG IV (11:09)
[2022-11-11 11:33] LABS: Glucose Point of Care 147 mg/dL (70-110)
[2022-11-11] MEDS: gabapentin 100 mg Capsule 200 MG PO (17:10)
[2022-11-11] MEDS: atorvastatin 40 mg Tablet 80 MG PO (17:10)
[2022-11-11] MEDS: azithromycin 500 MG in sodium chloride 0.9% 250 ML 250 MG IV (17:11)
[2022-11-11 17:15] LABS: Glucose Point of Care 103 mg/dL (70-110)
--- NOTE | 2022-11-11 17:38 | PM.PN ---
Subjective Subjective: patient was seen this morning, denies any fever, no chills, she feels better with diurese, denies bloody or black stools Vitals/I&O/Wt Last Vital Signs Temp 97.9 F 11/11/22 16:00 Pulse 75 11/11/22 16:00 Resp 21 H 11/11/22 16:00 BP 141/71 11/11/22 16:00 Pulse Ox 94 11/11/22 16:00 O2 Del Method Nasal Cannula 11/11/22 16:00 O2 Flow Rate 4 11/11/22 11:35 11/11/22 11/11/22 11/11/22 06:59 14:59 22:59 Intake Total 0 / 1348 515 / 515 Output Total 850 / 2450 1650 / 1650 Balance -850 / -1102 -1135 / -1135 Physical Exam Const: COMMON NORMALS: no acute distress and patient oriented x3 Resp: COMMON NORMALS: normal respiratory effort, No retractions, No use of accessory muscles and clear to auscultation bilaterally AUSCULTATION: clear to auscultation bilaterally Cardio: COMMON NORMALS: regular rate, regular rhythm, S1 normal heart sound present and S2 normal heart sound present RATE: regular rate RHYTHM: regular rhythm HEART SOUNDS: S1 normal heart sound present and S2 normal heart sound present GI: COMMON NORMALS: Normal to inspection, nondistended, normoactive bowel sounds present and non-tender Extremity: COMMON NORMALS: no pedal edema Neuro: COMMON NORMALS: patient oriented x3 Psych: COMMON NORMALS: mental status grossly normal Urinary Catheter Management: Aquino: Cath Placed During This Visit: yes Reason for Continuing Indwelling Catheter: Accurate Measurement of Urinary Output in Critically Ill Patients Urinary Catheter Date of Insertion: 11/09/22 Urinary Catheter Time of Insertion: 20:11 Data 11/11/22 03:59 11/11/22 03:59 A&P Assessment and plan (1) Atrial fibrillation with rapid ventricular response: (2) Acute respiratory failure with hypoxia: (3) Congestive heart failure (CHF): (4) Pneumonia: (5) PVD (peripheral vascular disease): (6) Dyslipidemia: (7) Essential (primary) hypertension: (8) Type 2 diabetes mellitus, with long-term current use of insulin: (9) Left leg swelling: (10) Goals of care, counseling/discussion: (11) CHF exacerbation: (12) NSTEMI (non-ST elevated myocardial infarction): (13) Pulmonary edema: (14) Bilateral pleural effusion: (15) Mediastinal lymphadenopathy: (16) Pericardial effusion: (17) Aortic stenosis: Plan Acute hypoxic respiratory failure -Likely secondary to fluid overload, pulm edema, A-fib fib with RVR BNP over 1300 -Chest x-ray shows radiographic evidence of possible interstitial lung disease, she denies a history of COPD, she quit smoking many years ago -She was given Levaquin in the ER for pneumonia as she has patchy infiltrates bilateral lung bases, Pro-Robson elevated at 4, leukocytosis CT angiogram of the chest shows 1. ? Moderate right and small left pleural effusions. 2. ? Nonspecific opacity in the right lower lobe, with ground-glass and interstitial opacities as well as masslike areas of consolidation. Findings felt to represent pneumonia. Follow-up study after treatment would be prudent to exclude underlying mass. 3. ? No pulmonary artery embolism identified. 4. ? Numerous enlarged mediastinal and right hilar lymph nodes felt to be reactive. Largest node is seen in the pretracheal space with short axis diameter of 2.5 cm. Second largest node is in the right hilar area measuring 1.5 cm in short axis diameter. 5. ? Cardiomegaly with pulmonary vascular congestion. 6. ? There is a small pericardial fluid collection present. Plan -Monitor respiratory status closely -Continue oxygen therapy, wean as tolerated -1 dose Lasix today -Continue Rocephin, azithromycin A-fib with RVR -Off amiodarone drip, continue amiodarone 400 twice daily - Eliquis 5 mg twice daily -Continue Coreg 12.5 mg twice daily -Cardiac echo CONCLUSIONS ?This is a poor quality study.? The ventricle is seen only in the ?apical view.? There is probably normal left ventricular size and ?function.? Mild left ventricular hypertrophy.? Due to the rhythm ?disturbance, diastolic function cannot be determined.? Ejection ?fraction is 55 to 60%.? There are no obvious wall motion ?disturbances. ?Normal right ventricular size and systolic function. Mild ?pulmonary hypertension, RVSP 37.8 mmHg. ?Normal right atrial size.? Right atrial pressure is slightly ?elevated probably in the 8 to 10 mmHg range. ?Mitral valve not well visualized. No mitral valve regurgitation. ?Moderate mitral annular calcification. ?Aortic valve is poorly seen.? There is some thickening of the ?valve with mild calcification.? There is likely some degree of ?aortic stenosis though it is difficult to interrogate the valve.? ?No obvious aortic insufficiency. Mild aortic valve stenosis, ?mean gradient 20 mmHg, ANDRIY 1.6 cm squared. ?There is a small hemodynamically insignificant pericardial ?effusion primarily noted along the right ventricular and right ?atrial border.? There is right atrial systolic collapse but not ?right atrial diastolic collapse and no right ventricular ?collapse. ?Inferior vena cava is dilated.? 1 cannot determine if it ?collapses upon respiration. ?Previous study done 01/17/2021.? On this study the atrial ?fibrillation is new as is the pericardial effusion.? Aortic ?stenosis is new. Pneumonia -CT angiogram of the chest 2. ? Nonspecific opacity in the right lower lobe, with ground-glass and interstitial opacities as well as masslike areas of consolidation. Findings felt to represent pneumonia. Follow-up study after treatment would be prudent to exclude underlying mass. -Sputum cultures -Urine bacterial antigens -Blood cultures -Currently on Rocephin and azithromycin Left lower extremity swelling -Venous ultrasound negative for DVT Diastolic CHF -currently in exacerbation -As above Pulmonary edema as above NSTEMI -Serial EKGs, serial troponins, telemetry monitoring -Type I versus type II -Cardiac echo as above -Aspirin, statin Peripheral vascular disease Arterial ultrasound October 13, 2022 CONCLUSIONS ?1.? Abnormal resting SADI and waveforms on the right side, ?suggesting high-grade stenosis, possibly involving the ostium of ?the common iliac artery on the right side.? Possible collateral ?filling in the infrapopliteal vessels. ?2.? Normal resting SADI on the left side with abnormal arterial ?Doppler velocities and waveforms, suggesting moderate peripheral ?artery disease mostly involving the iliac vessels. -Patient has an aortogram scheduled -Continue aspirin, continue heparin drip -hold cilostazol due to interaction with Cardizem Type 2 diabetes mellitus -Lantus 50 units twice daily -High-dose sliding scale Bilateral pleural effusions, Lasix as above Has small pericardial effusion, echocardiogram findings as above, monitor, monitor hemodynamics closely Mediastinal lymphadenopathy, with CT angiogram findings, will need to follow-up with pulmonary as outpatient aortic stenosis, mild, possibly related to afib, needs to see cardiology Goals of care discussion -I had extensive goals of care discussion with patient -She tells me that she is a good [employer], and that if it is time for her to go it is time for her to go -She does not want chest compressions, she does not want any shocking, she does not want any drugs per ACLS, she does not want to be intubated she does not want to be electively admitted DNR/DNI Eliquis for DVT prophylaxis cardiac stepdown unit, continue Rocephin continue azithromycin, switch to Eliquis 5 mg twice daily, amiodarone 400 twice daily, monitor respiratory status, PT OT, 1 dose lasix Attestations Medical Necessity Statement*: patient requires hospitalization for respiratory failure, pneumoniae, pvd, bilateral pleural effusion, atrial fibrillation Diagnoses Atrial fibrillation with rapid ventricular response I48.91 Acute respiratory failure with hypoxia J96.01 Congestive heart failure (CHF) I50.9 Pneumonia J18.9 PVD (peripheral vascular disease) I73.9 Dyslipidemia E78.5 Essential (primary) hypertension I10 Type 2 diabetes mellitus, with long-term current use of insulin E11.9; Z79.4 Left leg swelling M79.89 Goals of care, counseling/discussion Z71.89 CHF exacerbation I50.9 NSTEMI (non-ST elevated myocardial infarction) I21.4 Pulmonary edema J81.1 Bilateral pleural effusion J90 Mediastinal lymphadenopathy R59.0 Pericardial effusion I31.39 Aortic stenosis I35.0
--- NOTE | 2022-11-11 19:37 | PC.NURSE ---
Addendum entered by Gosia Clement RN 11/11/22 21:37: C-diff ordered. Original Note: Patient asking for something to help her diarrhea. Dr. Coker notified.
[2022-11-11 21:53] LABS: Glucose Point of Care 90 mg/dL (70-110)
[2022-11-12] VITALS (7 sets, daily range): BP systolic 126–159; BP diastolic 54–74; PULSE 72–85; RESP 16–24; TEMP 36.4–36.6; O2SAT 91–95
[2022-11-12 03:35] LABS: Basophils % 0.1 %; Eosinophils % 0.1 %; Hematocrit 50.2 % (37.0-47.0); Hemoglobin 15.7 g/dL (11.5-15.3); Lymphocytes # 0.7 10^3/uL (0.8-4.8); Lymphocytes % 7.1 %; Mean Corpuscular HGB Conc 31.3 g/dL (30.0-36.0); Mean Corpuscular Hemoglobin 28.5 pg (28.0-34.0); Mean Corpuscular Volume 91.3 fl (81-99); Mean Platelet Volume 11.8 fL (7.4-10.4); Monocytes # 0.8 10^3/uL (0.2-0.9); Monocytes % 7.7 %; Neutrophils % 84.6 %; Nucleated Red Blood Cells % 0 %; Platelet Count 200 10^3/cmm (130-400); Red Cell Distribution Width 14.6 % (12.1-15.1); White Blood Count 9.9 10^3/uL (4.0-10.0)
[2022-11-12 03:57] LABS: Magnesium 1.9 mg/dL (1.7-2.3); Phosphorus 3.3 mg/dL (2.5-4.5)
[2022-11-12 04:05] LABS: Anion Gap 10.4 (5-19); Blood Urea Nitrogen 19 mg/dL (8-23); Calcium 8.2 mg/dL (8.5-10.5); Carbon Dioxide 35 mmol/L (22-29); Chloride 102 mmol/L (98-107); Glucose 73 mg/dL (65-115); Osmolality Calculated 299 mOsm/kg (285-295); Potassium 3.4 mmol/L (3.5-5.1); Procalcitonin 6.22 ng/mL (0-0.5); Sodium 144 mmol/L (136-145)
[2022-11-12 06:22] LABS: Glucose Point of Care 92 mg/dL (70-110)
--- NOTE | 2022-11-12 08:56 | PC.SOCIAL ---
IMM update IMM updated with patient. Verbalized an understanding. Copy PG 2 provided. Initialled, dated, timed, and placed in chart.
[2022-11-12] MEDS: potassium chloride ER 20 mEq Tablet 40 MEQ PO (09:03)
[2022-11-12] MEDS: aspirin 81 mg EC Tablet PO (09:03)
[2022-11-12] MEDS: amiodarone 200 mg Tablet 400 MG PO (09:04)
[2022-11-12] MEDS: pantoprazole DR 40 mg Tablet PO (09:04)
[2022-11-12] MEDS: carvedilol 12.5 mg Tablet PO (09:04)
[2022-11-12] MEDS: apixaban 5 mg Tablet PO (09:04)
[2022-11-12] MEDS: cefTRIAXone 1,000 MG in sodium chloride 0.9% (plus) 50 ML 100 MG IV (10:03)
[2022-11-12] MEDS: azithromycin 500 MG in sodium chloride 0.9% 250 ML 250 MG IV (10:54)
[2022-11-12 11:26] LABS: Glucose Point of Care 267 mg/dL (70-110)
--- NOTE | 2022-11-12 11:45 | PM.DCS ---
Discharge Providers Date of Admission: 11/09/22 08:47 Date of Discharge: November 12, 2022 Attending Provider at Admission: Melvin Tovar MD Attending Provider at Discharge: Melvin Tovar MD Primary Care Provider: Kalyan Mejia MD Diagnoses at Discharge Discharge Diagnosis (1) Atrial fibrillation with rapid ventricular response: Status: Acute (2) Acute respiratory failure with hypoxia: Status: Acute (3) Congestive heart failure (CHF): Status: Acute (4) Pneumonia: Status: Acute (5) PVD (peripheral vascular disease): Status: Acute (6) Dyslipidemia: Status: Chronic (7) Essential (primary) hypertension: Status: Chronic (8) Type 2 diabetes mellitus, with long-term current use of insulin: Status: Chronic (9) Left leg swelling: Status: Acute (10) Goals of care, counseling/discussion: Status: Acute (11) CHF exacerbation: Status: Acute (12) NSTEMI (non-ST elevated myocardial infarction): Status: Acute (13) Pulmonary edema: Status: Acute (14) Bilateral pleural effusion: Status: Acute (15) Mediastinal lymphadenopathy: Status: Acute (16) Pericardial effusion: Status: Acute (17) Aortic stenosis: Status: Acute Reason for Visit Reason for Visit: SOB Hospital Course Hospital Course Nimo Kennedy is a 82 year old female insulin-dependent type 2 diabetes mellitus, peripheral vascular disease, dyslipidemia, aortic valve sclerosis, CKD stage III, diastolic CHF, LVH, prior history of smoking, currently being investigated for peripheral vascular disease who presents to [facility] due to sudden onset of shortness of breath, cough, patient tells me that she has been doing fine recently, she has been seeing Dr. Garcia for peripheral vascular disease, no lower extremity pain, no rest pain, no lower extremity discoloration, she does report left leg swelling which is acute on chronic, denies any recent shortness of breath, no fevers, chills, she went to bed, and she woke up, having a severe cough, nonproductive, no hemoptysis, and she felt short of breath with this, no chest pain, no palpitations, or shortness of breath persisted with exertion, such as getting up out of bed, no lightheadedness, no dizziness, due to significance of her symptoms, she called her grandson to bring her to [facility], in the emergency room, she was found to have A-fib with RVR, she was given Cardizem push followed by IV Cardizem, currently she is in A-fib, heart rates in the 90s, blood pressure 100s over 60s, she is alert oriented x3, denies any headaches, no blurry vision, no nausea, no vomiting, no facial droop, she was also given Levaquin for possible pneumonia, she was given steroids for possible COPD, patient was shocked to learn that she has COPD she tells me that she has never been told that she has COPD, in terms of her insulin she takes Tresiba 72 units in the morning, 60 units in the evening, she has not used her Tresiba this morning, and she uses a NovoLog sliding scale, she has not taken any of her medications,, currently in the ICU, on a Cardizem drip, I have started her on a heparin drip Patient was admitted to [facility] for acute hypoxic respiratory failure secondary to fluid overload, pulm edema, A-fib with RVR, pneumonia. She required inpatient diuresis, broad-spectrum antibiotic therapy, placed on amiodarone drip. Overall patient's clinical condition improved, she was transitioned from amiodarone drip to p.o. amiodarone, leukocytosis improved, she remains afebrile, cultures so far have been unremarkable, ambulating without significant symptomatology. On discharge she will be discharged on a tapering dose of amiodarone, doxycycline for antibiotic coverage, and 4 L oxygen nasal cannula. For her atrial fibrillation, she was discharged on Eliquis 5 mg twice daily, her aspirin dose was decreased to 81 mg daily, she is on cilostazol for peripheral vascular disease, advised to monitor for bleeding. If she were to have any bloody or black stools or lightheadedness to go to the emergency room. She does have peripheral vascular disease, she is supposed to have an aortogram through Dr. Garcia's office, please follow-up with Dr. Garcia as outpatient. She was found to also have aortic stenosis, this potentially could be playing a role to her atrial fibrillation and her shortness of breath, it was mild ultrasonography, please follow-up with cardiology as outpatient. Patient was also found to have mediastinal lymphadenopathy seen on CT imaging, please follow-up with Dr. Rey as outpatient. For her bilateral pleural effusions, CHF, she received inpatient diuresis, creatinine on discharge 1.0, discharged on Lasix as needed, however she might require a scheduled dose as outpatient, I will have her follow-up with cardiology and her primary care as outpatient. Physical Exam Const: COMMON NORMALS: no acute distress and patient oriented x3 Resp: COMMON NORMALS: normal respiratory effort, No retractions, No use of accessory muscles and clear to auscultation bilaterally AUSCULTATION: clear to auscultation bilaterally Cardio: COMMON NORMALS: regular rate, regular rhythm, S1 normal heart sound present and S2 normal heart sound present RATE: regular rate RHYTHM: regular rhythm HEART SOUNDS: S1 normal heart sound present and S2 normal heart sound present GI: COMMON NORMALS: Normal to inspection, nondistended, normoactive bowel sounds present and non-tender Extremity: COMMON NORMALS: no pedal edema Neuro: COMMON NORMALS: patient oriented x3 Psych: COMMON NORMALS: mental status grossly normal Urinary Catheter Management: Aquino: Cath Placed During This Visit: yes, but has since been removed by the nurse Reason for Continuing Indwelling Catheter: Not indwelling catheter Urinary Catheter Date of Insertion: 11/09/22 Urinary Catheter Time of Insertion: 20:11 Date Urinary Catheter Removed: 11/11/22 Time Urinary Catheter Discontinued: 18:00 Discharge Data Studies Completed and Pending Completed Studies During Hospitalization Category Date Time Status CT angio chest PE protcl [id number] Routine Cat Scan 11/09/22 09:53 Completed XR chest 1V portable [id number] Stat Exams 11/09/22 06:37 [place] [id number] Routine Ultrasound 11/09/22 09:15 Completed CV. echo complete* [id number] Routine Ultrasound 11/09/22 08:47 Completed Pending at discharge Category Date Time Status BMP [Basic Metabolic Panel] AM LABS Lab 11/13/22 04:00 Ordered Blood Culture Stat Lab 11/09/22 08:56 Results CDIFF [Clostridioides Difficile PCR] Routine Lab 11/12/22 09:39 Received Enteric Bacterial Panel by PCR Routine Lab 11/12/22 09:39 Received Enteric Parasite Panel by PCR Routine Lab 11/12/22 09:39 Received Sputum Culture and Gram Stain Stat Lab 11/09/22 08:34 Uncollected Radiology Impressions Chest X-Ray 11/09/22 06:37 IMPRESSION: Chronic underlying interstitial lung disease. Patchy opacities both lung bases. Pneumonia not excluded. Venous Duplex 11/09/22 09:15 IMPRESSION: 1. No evidence for deep venous thrombosis in the right or left lower extremities. 2. Mild subcutaneous edema in the right lower extremity. Chest CTA 11/09/22 09:53 IMPRESSION: 1. Moderate right and small left pleural effusions. 2. Nonspecific opacity in the right lower lobe, with ground-glass and interstitial opacities as well as masslike areas of consolidation. Findings felt to represent pneumonia. Follow-up study after treatment would be prudent to exclude underlying mass. 3. No pulmonary artery embolism identified. 4. Numerous enlarged mediastinal and right hilar lymph nodes felt to be reactive. Largest node is seen in the pretracheal space with short axis diameter of 2.5 cm. Second largest node is in the right hilar area measuring 1.5 cm in short axis diameter. 5. Cardiomegaly with pulmonary vascular congestion. 6. There is a small pericardial fluid collection present. Laboratory Results WBC 9.9 10^3/uL (4.0-10.0) 11/12/22 03:11 RBC 5.50 10^6/uL (4.1-5.3) H 11/12/22 03:11 Hgb 15.7 g/dL (11.5-15.3) H 11/12/22 03:11 Hct 50.2 % (37.0-47.0) H 11/12/22 03:11 MCV 91.3 fl (81-99) 11/12/22 03:11 MCH 28.5 pg (28.0-34.0) 11/12/22 03:11 MCHC 31.3 g/dL (30.0-36.0) 11/12/22 03:11 RDW 14.6 % (12.1-15.1) 11/12/22 03:11 Plt Count 200 10^3/cmm (130-400) 11/12/22 03:11 MPV 11.8 fL (7.4-10.4) H 11/12/22 03:11 Neut % (Auto) 84.6 % 11/12/22 03:11 Lymph % (Auto) 7.1 % 11/12/22 03:11 [place] % (Auto) 7.7 % 11/12/22 03:11 Eos % (Auto) 0.1 % 11/12/22 03:11 Baso % (Auto) 0.1 % 11/12/22 03:11 Neut # (Auto) 8.40 10^3/uL (1.8-7.7) H 11/12/22 03:11 Lymph # (Auto) 0.7 10^3/uL (0.8-4.8) L 11/12/22 03:11 [place] # (Auto) 0.8 10^3/uL (0.2-0.9) 11/12/22 03:11 Eos # (Auto) 0.0 10^3/uL (0.0-0.8) 11/12/22 03:11 Baso # (Auto) 0.0 10^3/uL (0.0-0.1) 11/12/22 03:11 Nucleated RBC % (auto) 0 % 11/12/22 03:11 Nucleated RBCs # 0.0 /100WBC 11/12/22 03:11 PT 12.60 SECONDS (12.1-14.9) 11/09/22 06:45 INR 0.91 (0.8-1.2) 11/09/22 06:45 APTT 92.3 SECONDS (23.9-36.7) H 11/10/22 04:32 D-Dimer 0.37 ug/mIFEU (0-0.59) 11/09/22 06:45 Specimen Type Arterial 11/09/22 07:00 Sample Site Radial, left 11/09/22 07:00 ABG pH 7.45 (7.35-7.45) 11/09/22 07:00 ABG pCO2 40.1 mmHg (35-45) 11/09/22 07:00 ABG pO2 54.0 mmHg (80.0-100.0) L 11/09/22 07:00 ABG HCO3 27.9 mmol/L (22-26) H 11/09/22 07:00 ABG O2 Saturation 89.1 11/09/22 07:00 ABG Base Excess 3.7 mmol/L (-2.0-2.0) H 11/09/22 07:00 Hansel Test Pos 11/09/22 07:00 A-a O2 Gradient 10.6 mmHg (5-10) H 11/09/22 07:00 Hematocrit 49.8 % (37-47) H 11/09/22 07:00 Hgb O2 Saturation 88.3 % (95-100) L 11/09/22 07:00 Carboxyhemoglobin 0.7 %THgb (0.4-20.1) 11/09/22 07:00 Methemoglobin 0.1 % (0.4-1.5) L 11/09/22 07:00 Total Hemoglobin 16.2 g/dL (12-16) H 11/09/22 07:00 Sodium 138.0 mmol/L (131-143) 11/09/22 07:00 Potassium 3.6 mmol/L (3.5-5.0) 11/09/22 07:00 Glucose 226.0 mg/dL (70-115) H 11/09/22 07:00 Ionized Calcium 1.2 mmol/L (1.1-1.4) 11/09/22 07:00 O2 Delivery Device Nc 11/09/22 07:00 O2 Liters/Min 1.5 % 11/09/22 07:00 FiO2 26.0 % 11/09/22 07:00 Engineer Specialist ID Krissjoel 11/09/22 07:00 Sodium 144 mmol/L (136-145) 11/12/22 03:11 Potassium 3.4 mmol/L (3.5-5.1) L 11/12/22 03:11 Chloride 102 mmol/L (98-107) 11/12/22 03:11 Carbon Dioxide 35 mmol/L (22-29) H 11/12/22 03:11 Anion Gap 10.4 (5-19) 11/12/22 03:11 BUN 19 mg/dL (8-23) 11/12/22 03:11 Creatinine 1.0 mg/dL (0.5-0.9) H 11/12/22 03:11 GFR Calculation Not Reportable 11/12/22 03:11 Glucose 73 mg/dL (65-115) 11/12/22 03:11 POC Glucose 267 mg/dL (70-110) H 11/12/22 11:07 Estimat Average Glucose 169 11/09/22 06:45 Hemoglobin A1c 7.5 % (4.0-6.0) H 11/09/22 06:45 Calculated Osmolality 299 mOsm/kg (285-295) H 11/12/22 03:11 Lactic Acid 1.3 mmol/L (0.5-2.2) 11/09/22 06:45 Calcium 8.2 mg/dL (8.5-10.5) L 11/12/22 03:11 Phosphorus 3.3 mg/dL (2.5-4.5) 11/12/22 03:11 Magnesium 1.9 mg/dL (1.7-2.3) 11/12/22 03:11 Total Bilirubin 0.6 mg/dL (0.15-1.2) 11/09/22 06:45 AST 19 U/L (0-32) 11/09/22 06:45 ALT 20 U/L (0-33) 11/09/22 06:45 Alkaline Phosphatase 45 U/L (35-105) 11/09/22 06:45 Troponin T Baseline 22 ng/L (0-10) H 11/09/22 06:45 Troponin T 120 Minute 27.34 ng/L (0-10) H 11/09/22 08:50 Delta Troponin T 5.34 ABS# (0-10) 11/09/22 08:50 Troponin T Hi Sens 6Hr 25.34 ng/L (0-10) H 11/09/22 13:29 Troponin T Hi Sens 6Hr Delta 3.34 ng/L (0-12) 11/09/22 13:29 C-Reactive Protein 3.0 mg/L (0.0-4.9) 11/12/22 03:11 NT-Pro-B Natriuret Pep 786 pg/mL (0-450) H 11/11/22 03:59 Total Protein 7.0 g/dL (6.6-8.7) 11/09/22 06:45 Albumin 4.0 g/dL (3.5-5.2) 11/09/22 06:45 Globulin 3.0 g/dL (1.3-4.6) 11/09/22 06:45 Triglycerides 75 mg/dL (0-150) 11/09/22 08:50 Cholesterol 114 mg/dL (0-200) 11/09/22 08:50 LDL Cholesterol, Calc 38 mg/dL (50-129) L 11/09/22 08:50 HDL Cholesterol 61 mg/dL (60-100) 11/09/22 08:50 LDL/HDL Ratio 0.62 RATIO (0.00-3.22) 11/09/22 08:50 Cholesterol/HDL Ratio 1.87 mg/dL (0.0-4.40) 11/09/22 08:50 Procalcitonin 6.22 ng/mL (0-0.5) H 11/12/22 03:11 TSH 0.41 uIU/mL (0.27-4.20) 11/09/22 08:50 Nasal Influ A H1 2009 PCR Not detected (NOT DETECT) 11/09/22 17:00 Adenovirus (PCR) Not detected (NOT DETECT) 11/09/22 17:00 C. pneumoniae DNA (PCR) Not detected (NOT DETECT) 11/09/22 17:00 Coronavirus 229E (PCR) Not detected (NOT DETECT) 11/09/22 17:00 Human Metapneumovir PCR Not detected (NOT DETECT) 11/09/22 17:00 Influenza A (H1) PCR Not detected (NOT DETECT) 11/09/22 17:00 Influenza A (H3) PCR Not detected (NOT DETECT) 11/09/22 17:00 Influenza Type A (PCR) Not detected (NOT DETECT) 11/09/22 17:00 Influenza Type B (PCR) Not detected (NOT DETECT) 11/09/22 17:00 M. pneumoniae (PCR) Not detected (NOT DETECT) 11/09/22 17:00 Parainfluenza 1 (PCR) Not detected (NOT DETECT) 11/09/22 17:00 Parainfluenza 2 (PCR) Not detected (NOT DETECT) 11/09/22 17:00 Parainfluenza 3 (PCR) Not detected (NOT DETECT) 11/09/22 17:00 Parainfluenza 4 (PCR) Not detected (NOT DETECT) 11/09/22 17:00 RSV Type A (PCR) Not detected (NOT DETECT) 11/09/22 17:00 RSV Type B (PCR) Not detected (NOT DETECT) 11/09/22 17:00 Entero/Rhino (PCR) Not detected (NOT DETECT) 11/09/22 17:00 SARS-CoV-2 (PCR) Not detected (NOT DETECT) 11/09/22 17:00 Vitals Last Vital Signs Temp 97.6 F 11/12/22 07:54 Pulse 74 11/12/22 07:54 Resp 24 H 11/12/22 07:54 BP 159/74 11/12/22 07:54 Pulse Ox 95 11/12/22 09:07 O2 Del Method Nasal Cannula 11/12/22 09:07 O2 Flow Rate 4 11/12/22 09:07 Discharge Plan Discharge Patient Disposition: Home Health Service Condition: Stable Prescriptions: New Eliquis 5 mg Tablet 5 mg PO Q12H 30 Days Qty: 60 0RF doxycycline hyclate 100 mg tablet 100 mg PO BID 5 Days Qty: 10 0RF aspirin 81 mg Tablet,Delayed Release (Dr/Ec) 81 mg PO DAILY 30 Days Qty: 30 0RF amiodarone [Pacerone] 200 mg Tablet 400 mg PO DIRECTED 30 Days Qty: 42 0RF Rx Instructions: 400mg(2tabs) for 2 weeks, then decrease to 200mg once daily Continued multivitamin Tablet 1 tab PO QAM Calci-Mix 500 mg calcium (1,250 mg) capsule 500 mg PO DAILY cholecalciferol (vitamin D3) 10 mcg (400 unit) capsule 25 mcg PO DAILY (DME) Dexcom G6 Restaurant Assistant Manager Misc See Rx Instructions .Route Qty: 1 0RF Rx Instructions: Check BS 4 times a day. (DME) Dexcom G6 Transmitter Device See Rx Instructions .Route Qty: 1 3RF Rx Instructions: Change every 90 days. gabapentin 100 mg capsule 200 mg PO QPM cilostazol 100 mg tablet 100 mg PO BID Qty: 60 5RF (DME) blood-glucose meter [Accu-Chek Daphne Plus Meter] Misc See Rx Instructions .ROUTE .MEDSUPPLY Qty: 1 0RF Rx Instructions: four times daily (DME) lancets [Accu-Chek Fastclix Lancet Drum] Misc See Rx Instructions .ROUTE .MEDSUPPLY Qty: 200 2RF Rx Instructions: four times daily Tresiba FlexTouch U-200 200 unit/mL (3 mL) insulin pen See Rx Instructions .ROUTE .COMPLEX Qty: 101 1RF Dose Instruction: INJECT 72 UNITS EVERY MORNING AND 64 UNITS EVERY EVENING Rx Instructions: INJECT 72 UNITS EVERY MORNING AND 60 UNITS EVERY EVENING (DME) Dexcom G6 Sensor Device See Rx Instructions .Route Qty: 3 3RF Rx Instructions: Change every 10 days. (DME) Accu-Chek Daphne Plus test strp Strip See Rx Instructions .ROUTE .MEDSUPPLY Qty: 200 11RF Rx Instructions: four times daily (DME) pen needle, diabetic [BD Ultra-Fine Mini Pen Needle] 31 gauge x 3/16 needle See Rx Instructions .ROUTE .MEDSUPPLY Qty: 200 2RF Rx Instructions: 4 NEEDLES DAILY potassium chloride 8 mEq tablet extended release 8 meq PO DAILY Qty: 100 3RF furosemide [Lasix] 20 mg tablet 20 mg PO DAILY PRN (Reason: edema) Qty: 90 3RF lisinopril 40 mg tablet 20 mg PO DAILY carvedilol 12.5 mg tablet 12.5 mg PO BID Qty: 180 3RF Rx Instructions: must administer with a meal/food rosuvastatin 20 mg tablet 20 mg PO QPM Myrbetriq 25 mg tablet extended release 24 hr 25 mg PO DAILY Fish Oil 120 mg-180 mg- 60 mg-1,200 mg Capsule,Delayed Release(Dr/Ec) 1 cap PO DAILY Changed insulin lispro [Humalog KwikPen Insulin] 100 unit/mL insulin pen See Rx Instructions .ROUTE .COMPLEX Qty: 27 3RF Dose Instruction: INJECT 30 UNITS SUBCUTANEOUSLY THREE TIMES DAILY Rx Instructions: INJECT, subcut, three times daily, after meals, based on sliding scale Discontinued aspirin 325 mg tablet 325 mg PO DAILY amlodipine 10 mg tablet See Rx Instructions .ROUTE .COMPLEX Rx Instructions: 10 mg orally ;take 1/2 tablet BY MOUTH EVERY MORNING and ONE EVERY EVENING Discharge Orders: Discharge Order (Routine); Ordered 11/12/22 Ordered By: Melvin Tovar Other Ambulatory Orders: DME: Oxygen (Order) Location: None Selected Ordered By: Melvin Tovar Referrals: [facility] [place] Home Care ([facility]) [Outside] Datar,Jaime Carreno MD [Physician] - 11/18/22 8:15 am Gem Garcia MD [Physician] - 11/19/22 8:45 am Kalyan Mejia MD [Primary Care Provider] - 11/18/22 2:00 pm ( ) Discharge Diet: Cardiac Discharge Activity: Resume usual activity Patient Instructions: Doxycycline (By mouth) (Acticlate, Adoxa, Avidoxy, Monodox, Doryx), Aspirin (By mouth), Amiodarone (By mouth) (Cordarone, Pacerone), Apixaban (By mouth) (Eliquis), Aortic Stenosis (DC), Pulmonary Edema (DC), CHF Stoplight, Opioid Safety, Pneumonia Stoplight Activity Restrictions/Additional Instructions: - For your atrial fibrillation I have discharged you on Eliquis 5 mg twice daily which is a blood thinner -Please monitor for bloody or black stools if so go to the emergency room -Please have your primary care provider recheck your hemoglobin, in 1 week -Please take amiodarone as prescribed -If you feel lightheaded or dizzy go to the emergency room -Please see Dr. Garcia in 1 week -I have decreased your aspirin to 81 mg once daily -You are also on your cilostazol for your peripheral vascular disease, please monitor for signs of bleeding if so go to the emergency room, follow-up with Dr. Garcia for your aortogram -For your pneumonia please take antibiotics as prescribed -You have been discharged on 4 L -If you feel short of breath please take Lasix 20 mg once daily as needed for shortness of breath or lower extremity edema or weight gain more than 3 pounds if you take Lasix please take with potassium plateau -For your mediastinal lymphadenopathy please follow-up with Dr. Rey Discharge Attestations Time Spent in Discharge Care*: greater than 30 min Quality Metrics Clinical Quality Measures [ No reported AMI, CVA or VTE this stay] Coding Level of Care Code 81432 Total time (in minutes) for Discharge: 45 Diagnoses Atrial fibrillation with rapid ventricular response I48.91 Acute respiratory failure with hypoxia J96.01 Congestive heart failure (CHF) I50.9 Pneumonia J18.9 PVD (peripheral vascular disease) I73.9 Dyslipidemia E78.5 Essential (primary) hypertension I10 Type 2 diabetes mellitus, with long-term current use of insulin E11.9; Z79.4 Left leg swelling M79.89 Goals of care, counseling/discussion Z71.89 CHF exacerbation I50.9 NSTEMI (non-ST elevated myocardial infarction) I21.4 Pulmonary edema J81.1 Bilateral pleural effusion J90 Mediastinal lymphadenopathy R59.0 Pericardial effusion I31.39 Aortic stenosis I35.0
== END 2022-11-12 13:34 | disposition home health service (06) | DRG 280 ==
LOC: ER 06:41 → ICU 08:09 → CSU 11-10 20:48
PROVIDERS: Admitting Provider Family Medicine; Emergency Provider Family Medicine; PCP Family Medicine; Visit Provider Family Medicine
DX: I13.0 Hypertensive heart and chronic kidney disease with heart failure and stage 1 through stage 4 chronic kidney disease, or unspecified chronic kidney disease (principal); I50.33 Acute on chronic diastolic (congestive) heart failure; I21.4 Non-ST elevation (NSTEMI) myocardial infarction; J18.9 Pneumonia, unspecified organism; J96.01 Acute respiratory failure with hypoxia; N18.30 Chronic kidney disease, stage 3 unspecified; E11.22 Type 2 diabetes mellitus with diabetic chronic kidney disease; E11.51 Type 2 diabetes mellitus with diabetic peripheral angiopathy without gangrene; I48.91 Unspecified atrial fibrillation; E78.5 Hyperlipidemia, unspecified; I35.0 Nonrheumatic aortic (valve) stenosis; Z87.891 Personal history of nicotine dependence; E87.70 Fluid overload, unspecified; Z79.4 Long term (current) use of insulin; Z85.820 Personal history of malignant melanoma of skin
CPT/HCPCS: 36415; 36416; 36600; 51702; 71045; 71275; 80048; 80051; 80053; 80061; 82330; 82805; 82962; 83036; 83605; 83735; 83880; 84100; 84145; 84443; 84484; 85025; 85378; 85610; 85730; 86140; 86403; 87040; 87486; 87493; 87506; 87581; 87633; 93005; 93306; 93970; 94640; 94664; 94760; 96365; 96366; 96372; 96375; 96376; 97110; 97116; 97161; 97165; 97530; 97535; 99285; C9113; J0282; J0456; J0696; J1644; J1815; J1940; J1956; J2930; J3480; J3490; J7050; J7060; J7613; Q9967

== ENCOUNTER 2022-11-19 09:28 | Emergency (ER) | payer MEDICARE, MEDICAID, SELFPAY ==
[2022-11-19] VITALS (8 sets, daily range): BP systolic 73–153; BP diastolic 42–82; PULSE 66–79; RESP 16–18; O2SAT 91–95
--- NOTE | 2022-11-19 09:51 | CT_ITS ---
WS: [id number] CT HEAD TECHNIQUE: Noncontrast CT of the head obtained from the skullbase to the vertex. CLINICAL INFORMATION: dbl vision COMPARISON: None. DLP: 1107.[address] scans at [facility] use at least one of these dose optimization techniques: automated e xposure control; mA and/or kV adjustment per patient size (includes targeted exams where dose is matc hed to clinical indication); or iterative reconstruction. FINDINGS: No evidence of intracranial hemorrhage or mass effect. Ventricular system and basal cisterns are goldstein nt. Moderate small vessel changes with moderate parenchymal volume loss. No extra-axial fluid collect ions. No evidence of mass or mass effect. Intracranial vascular calcification. Tiny chronic cortical infarct LEFT cerebellum. Paranasal sinuses and mastoid air cells are well aerated. .Normal visualized soft tissues. IMPRESSION: 1. No evidence of intracranial hemorrhage or mass effect. 2. Moderate small vessel changes. Moderate parenchymal volume loss. 3. Intracranial vascular calcification. 4. No acute intracranial findings.
--- NOTE | 2022-11-19 09:51 | ECG_ITS ---
[facility] Test Date: 2022-11-19 Pat Name: Nimo Kennedy Department: Room: Gender: Female Research Engineer: : 1940 Requested By: Jack Perez Order Number: [id number] Celena MD: Gem Garcia M.D. Measurements Intervals [place] Rate: 73 P: -84 CA: 157 QRS: 56 QRSD: 98 T: 60 QT: 407 QTc: 450 Interpretive Statements SINUS RHYTHM WITH OCCASIONAL SUPRAVENTRICULAR PREMATURE COMPLEXES SEPTAL MYOCARDIAL INFARCTION , OF INDETERMINATE AGE [40+ ms Q WAVE IN V1/V2] Compared to ECG 11/09/2022 13:14:47 Atrial fibrillation no longer present Myocardial infarct finding still present Electronically Signed On 11-19-2022 20:03:35 CDT by Gem Garcia M.D. [id number]
--- NOTE | 2022-11-19 09:52 | XR_ITS ---
WS: [id number] EXAMINATION: XR chest 1V portable [id number] REASON FOR EXAM: dyspnea/cough COMPARISON: 11/09/2022 ORDER DATE: 11/19/2022 9:55 AM TECHNIQUE: A single, portable frontal chest x-ray was obtained. X-RAY FINDINGS: Lungs: Chronic underlying interstitial lung disease. Patchy infiltrates both lung bases. Perihilar peribronchial cuffing decreased from previous study. Pleural spaces: Small right pleural effusion. No pneumothorax. Heart/Mediastinum: Unremarkable. No cardiomegaly. Atherosclerotic aortic change Bones/joints: Unremarkable. IMPRESSION: Chronic underlying interstitial lung disease. Patchy opacities both perihilar and lung bases slightly improved. Differential diagnosis includes infiltrate versus pulmonary edema. Newly developed small right pleural effusion.
[2022-11-19 10:13] LABS: Basophils % 0.2 %; Eosinophils % 0.4 %; Hematocrit 42.5 % (36-47); Lymphocytes # 0.9 10^3/uL (0.8-4.8); Lymphocytes % 7.8 %; Mean Corpuscular Hemoglobin 29.1 pg (27-33); Mean Platelet Volume 11.6 fL (7.4-10.4); Monocytes # 0.9 10^3/uL (0.2-0.9); Monocytes % 8.2 %; Neutrophils # 9.41 10^3/uL (1.8-7.7); Neutrophils % 82.8 %; Nucleated Red Blood Cells % 0 %; Platelet Count 207 10^3/cmm (157-399); Red Blood Count 4.67 10^6/uL (3.85-5.65); Red Cell Distribution Width 14.4 % (12.1-15.1); White Blood Count 11.35 10^3/uL (3.29-11.43)
--- NOTE | 2022-11-19 10:18 | ED_ITS ---
HPI - Weakness General: Chief complaint: Weakness Stated complaint: weakness, sent from heart care Time Seen by Provider: 11/19/22 09:50 Source: patient Mode of arrival: ambulatory History of Present Illness: 82-year-old female is on her way to her doctor's appointment got very short of breath and weak when arriving in her doctor's clinic she was found to be hypoxic and was diverted to the emergency room she is also moderately hypotensive. She recently was hospitalized found to be in A-fib and at discharge required 4 L/min she has a small oxygen bottle with her that she took when she left the house however it is completely empty. It appears it ran out and route to the hospital. MD Complaint: generalized weakness Onset (ago): minute(s) Duration: constant Location: generalized Relieving factors: rest and medication (Oxygen) Exacerbating factors: exertion Associated symptoms: Denies chest pain, chills, confusion, melena, decreased appetite, diaphoresis, dysuria, easy bruising, fever(s), headache(s), myalgias, nausea, rash, short of breath, syncope or vomiting Review of Systems Const: Denies: fever(s), chills or diaphoresis Card: Denies: chest pain or syncope Resp: Reports: dyspnea and wheezing; Denies: productive cough or non-productive cough GI: Denies: abdominal pain, nausea, vomiting or melena : Denies: dysuria, urinary frequency or urinary urgency Neuro: Denies: headache(s) or confusion Sai/Lymph: Denies: easy bruising PFSH ED PFSH: Medical History Acute bronchitis and bronchiolitis Benign mass of parotid gland DJD (degenerative joint disease) Dyslipidemia Essential (primary) hypertension History of malignant melanoma History of nonmelanoma skin cancer Incomplete emptying of bladder Left anterior knee pain Nocturia Proteinuria PVD (peripheral vascular disease) Recurrent UTI Tuberculosis Type 2 diabetes mellitus, with long-term current use of insulin Urgency incontinence Urinary urgency Surgical History H/O breast biopsy H/O section H/O: hysterectomy History of surgery on lower extremity History of tonsillectomy Family History Mother , at age 93 Diabetes CAD (coronary artery disease) Brother Leukemia Cancer Diabetes Family/Other Cancer Diabetes Daughter Chronic kidney disease (CKD) Cancer Father , at age 83 Stroke Grandmother Cancer Denies family history of Clotting disorder Dementia Suicide Anesthesia complication Bleeding disorder Lung disease Social History Smoking and tobacco status: former smoker Alcohol intake: current Alcohol intake frequency: holidays/special occasions only Substance/Drug Use: never Adopted: No Caregiver/support person: No Household members: family Marital status: Current occupational status: retired Physical Exam Const: GENERAL APPEARANCE: cooperative and comfortable ORIENTATION/CONSCIOUSNESS: Yes awake, Yes oriented to person, Yes oriented to place and Yes oriented to time HENMT: COMMON NORMALS: normocephalic, atraumatic and hearing grossly normal bilaterally HEAD & SCALP: normocephalic and atraumatic Resp: COMMON NORMALS: normal respiratory effort, No retractions, No use of accessory muscles and clear to auscultation bilaterally AUSCULTATION: clear to auscultation bilaterally Cardio: COMMON NORMALS: regular rate, regular rhythm and No murmurs present (Cardio) RATE: regular rate RHYTHM: regular rhythm GI: COMMON NORMALS: Soft to palpation and No hepatosplenomegaly present AUSCULTATION: Yes normoactive bowel sounds PALPATION: Yes Soft to palpation, No Tenderness to palpation present (GI), No Guarding due to palpation present (GI) and Yes No hepatosplenomegaly present Extremity: COMMON NORMALS: normal to inspection, capillary refill normal, no clubbing, cyanosis or edema, no calf tenderness and no pedal edema Neuro: SENSORIUM/ORIENTATION: Yes oriented to person, Yes oriented to place and Yes oriented to time Skin: COMMON NORMALS: no rashes or lesions noted GENERAL SKIN EXAM: no rashes or lesions noted Course Vital Signs: Vital signs: Vital Signs Pulse Rate 79 11/19/22 12:02 Respiratory Rate 16 11/19/22 12:02 Blood Pressure 153/82 11/19/22 12:02 Pulse Oximetry 92 11/19/22 12:02 Oxygen Delivery Me thod Nasal Cannula 11/19/22 10:01 Oxygen Flow Rate 6 11/19/22 10:01 MDM - Weakness Medical Decision Making Symptoms improved after patient was placed on oxygen and arriving here. Examination of her oxygen bottle was found to be completely empty regulator is on 4 L/min. It appears what happens is the oxygen bottle ran out we asked home to come and evaluate they found that the regulator was not working properly and drained the tank. They have returned with a replacement regulator patient will be discharged home follow-up with primary care and cardiology as previously scheduled Medical Records I reviewed the patient's medical records. Lab Data I reviewed the patient's lab results. 11/19/22 10:00 11/19/22 10:00 Laboratory Results WBC 11.35 10^3/uL (3.29-11.43) 11/19/22 10:00 RBC 4.67 10^6/uL (3.85-5.65) 11/19/22 10:00 Hgb 13.60 g/dL (11.27-16.99) 11/19/22 10:00 Hct 42.5 % (36-47) 11/19/22 10:00 MCV 91.0 fl (85-98) 11/19/22 10:00 MCH 29.1 pg (27-33) 11/19/22 10:00 MCHC 32.0 g/dL (30-55) 11/19/22 10:00 RDW 14.4 % (12.1-15.1) 11/19/22 10:00 Plt Count 207 10^3/cmm (157-399) 11/19/22 10:00 MPV 11.6 fL (7.4-10.4) H 11/19/22 10:00 Neut % (Auto) 82.8 % 11/19/22 10:00 Lymph % (Auto) 7.8 % 11/19/22 10:00 [place] % (Auto) 8.2 % 11/19/22 10:00 Eos % (Auto) 0.4 % 11/19/22 10:00 Baso % (Auto) 0.2 % 11/19/22 10:00 Neut # (Auto) 9.41 10^3/uL (1.8-7.7) H 11/19/22 10:00 Lymph # (Auto) 0.9 10^3/uL (0.8-4.8) 11/19/22 10:00 [place] # (Auto) 0.9 10^3/uL (0.2-0.9) 11/19/22 10:00 Eos # (Auto) 0.0 10^3/uL (0.0-0.8) 11/19/22 10:00 Baso # (Auto) 0.0 10^3/uL (0.0-0.1) 11/19/22 10:00 Nucleated RBC % (auto) 0 % 11/19/22 10:00 Nucleated RBCs # 0.0 /100WBC 11/19/22 10:00 Sodium 139 mmol/L (136-145) 11/19/22 10:00 Potassium 3.4 mmol/L (3.5-5.1) L 11/19/22 10:00 Chloride 100 mmol/L (98-107) 11/19/22 10:00 Carbon Dioxide 31 mmol/L (22-29) H 11/19/22 10:00 Anion Gap 11.4 (5-19) 11/19/22 10:00 BUN 22 mg/dL (8-23) 11/19/22 10:00 Creatinine 1.2 mg/dL (0.5-0.9) H 11/19/22 10:00 GFR Calculation Not Reportable 11/19/22 10:00 Glucose 109 mg/dL (65-115) 11/19/22 10:00 Calculated Osmolality 292 mOsm/kg (285-295) 11/19/22 10:00 Calcium 8.6 mg/dL (8.5-10.5) 11/19/22 10:00 Total Bilirubin 0.5 mg/dL (0.15-1.2) 11/19/22 10:00 AST 14 U/L (0-32) 11/19/22 10:00 ALT 14 U/L (0-33) 11/19/22 10:00 Alkaline Phosphatase 34 U/L (35-105) L 11/19/22 10:00 NT-Pro-B Natriuret Pep 524 pg/mL (0-450) H 11/19/22 10:00 Total Protein 5.5 g/dL (6.6-8.7) L 11/19/22 10:00 Albumin 3.1 g/dL (3.5-5.2) L 11/19/22 10:00 Globulin 2.4 g/dL (1.3-4.6) 11/19/22 10:00 Urine Color Yellow (Yellow) 11/19/22 12:01 Urine Appearance Clear (CLEAR) 11/19/22 12:01 Urine pH 6.5 (5-7) 11/19/22 12:[address] 1.015 (1.005-1.030) 11/19/22 12:01 Urine Protein 3+ (Negative) H 11/19/22 12:01 Urine Glucose (UA) Norm (Normal) 11/19/22 12:01 Urine Ketones Negative (Negative) 11/19/22 12:01 Urine Blood Neg (Negative) 11/19/22 12:01 Urine Nitrate Negative (Negative) 11/19/22 12:01 Urine Bilirubin Neg (Negative) 11/19/22 12:01 Urine Urobilinogen Norm mg/dL (Negative) 11/19/22 12:01 Ur Leukocyte Esterase Negative (Negative) 11/19/22 12:01 Urine RBC 0-4 /hpf (0-2) H 11/19/22 12:01 Urine WBC 0-4 /hpf (0-5) H 11/19/22 12:01 Ur Squamous Epith Cells 0-4 /hpf (0-5) H 11/19/22 12:01 Amorphous Sediment Not Reportable 11/19/22 12:01 Urine Bacteria None /hpf (NONE) 11/19/22 12:01 Urine Mucus 2+ /hpf 11/19/22 12:01 Discharge Plan Discharge Patient Disposition: Home Clinical Impression: Hypoxia, Oxygen supply absent Condition: Stable Prescriptions: No Action multivitamin Tablet 1 tab PO QAM Calci-Mix 500 mg calcium (1,250 mg) capsule 500 mg PO DAILY (DME) Dexcom G6 Finance Vice President Misc See Rx Instructions .Route Qty: 1 0RF Rx Instructions: Check BS 4 times a day. (DME) Dexcom G6 Transmitter Device See Rx Instructions .Route Qty: 1 3RF Rx Instructions: Change every 90 days. gabapentin 100 mg capsule 200 mg PO QPM cilostazol 100 mg tablet 100 mg PO BID Qty: 60 5RF (DME) blood-glucose meter [Accu-Chek Daphne Plus Meter] Misc See Rx Instructions .ROUTE .MEDSUPPLY Qty: 1 0RF Rx Instructions: four times daily (DME) lancets [Accu-Chek Fastclix Lancet Drum] Misc See Rx Instructions .ROUTE .MEDSUPPLY Qty: 200 2RF Rx Instructions: four times daily Tresiba FlexTouch U-200 200 unit/mL (3 mL) insulin pen See Rx Instructions .ROUTE .COMPLEX Qty: 101 1RF Dose Instruction: INJECT 72 UNITS EVERY MORNING AND 64 UNITS EVERY EVENING Rx Instructions: INJECT 72 UNITS EVERY MORNING AND 60 UNITS EVERY EVENING (DME) Dexcom G6 Sensor Device See Rx Instructions .Route Qty: 3 3RF Rx Instructions: Change every 10 days. (DME) Accu-Chek Daphne Plus test strp Strip See Rx Instructions .ROUTE .MEDSUPPLY Qty: 200 11RF Rx Instructions: four times daily (DME) pen needle, diabetic [BD Ultra-Fine Mini Pen Needle] 31 gauge x 3/16 needle See Rx Instructions .ROUTE .MEDSUPPLY Qty: 200 2RF Rx Instructions: 4 NEEDLES DAILY carvedilol 12.5 mg tablet 12.5 mg PO BID Qty: 180 3RF Rx Instructions: must administer with a meal/food rosuvastatin 20 mg tablet 20 mg PO QPM Myrbetriq 25 mg tablet extended release 24 hr 25 mg PO DAILY Fish Oil 120 mg-180 mg- 60 mg-1,200 mg Capsule,Delayed Release(Dr/Ec) 1 cap PO DAILY Eliquis 5 mg Tablet 5 mg PO Q12H 30 Days Qty: 60 0RF insulin lispro [Humalog KwikPen Insulin] 100 unit/mL insulin pen See Rx Instructions .ROUTE .COMPLEX Qty: 27 3RF Dose Instruction: INJECT 30 UNITS SUBCUTANEOUSLY THREE TIMES DAILY Rx Instructions: INJECT, subcut, three times daily, after meals, based on sliding scale as needed Vitamin D3 25 mcg (1,000 unit) Capsule 25 mcg PO DAILY Pacerone 200 mg tablet See Rx Instructions .ROUTE .COMPLEX Rx Instructions: 400mg(2tabs) daily for 2 weeks, then decrease to 200mg once daily aspirin 81 mg tablet,delayed release (DR/EC) 81 mg PO QAM potassium chloride 8 mEq tablet extended release 8 meq PO QAM Lasix 20 mg tablet 20 mg PO DAILY lisinopril 20 mg tablet 20 mg PO DAILY Discharge Orders: Discharge ED (Routine); Ordered 11/19/22 Ordered By: Jack Duarte Referrals: Kalyan Mejia MD [Primary Care Provider] - Discharge Diet: Usual diet Discharge Activity: Resume usual activity Patient Instructions: Opioid Safety, Pain Management Activity Restrictions/Additional Instructions: You are seen today for weakness and hypoxia that appears to have been caused by a malfunctioning regulator on your oxygen supply. To the oxygen supplier to fix the problem on the emergency room. Continue to use your oxygen as previously scheduled follow-up with your doctors as previously advised you should reschedule the appointment you are not able to make this morning because of the malfunction. Coding Level of Care Code ED Power Transformer Inspector for Jay Haynes
[2022-11-19 10:32] LABS: Alanine Aminotransferase 14 U/L (0-33); Albumin Level 3.1 g/dL (3.5-5.2); Alkaline Phosphatase 34 U/L (35-105); Anion Gap 11.4 (5-19); Aspartate Amino Transferase 14 U/L (0-32); Blood Urea Nitrogen 22 mg/dL (8-23); Calcium 8.6 mg/dL (8.5-10.5); Carbon Dioxide 31 mmol/L (22-29); Chloride 100 mmol/L (98-107); Globulin 2.4 g/dL (1.3-4.6); Glucose 109 mg/dL (65-115); NT Pro B Type Natriuretic Pept 524 pg/mL (0-450); Osmolality Calculated 292 mOsm/kg (285-295); Potassium 3.4 mmol/L (3.5-5.1); Sodium 139 mmol/L (136-145); Total Bilirubin 0.5 mg/dL (0.15-1.2); Total Protein 5.5 g/dL (6.6-8.7)
--- NOTE | 2022-11-19 11:02 | PC.PHAR ---
pt states she takes care of her own medications-pt states she finished her doxycycline hyclate 100mg bid filled 11/12/22 5d/s-pt states when she was discharged the dr becerra her amlodipine 5mg bid filled 10/27/22 90d/s and januvia 50mg daily filled 09/04/22 90d/s-pt states been taking lasix daily rx filled for prn-pt unsure what mg she takes of lisinopril-med list she brought in from 11/13/22 has 20mg daily med list pt brought in today 11/19/22 40mg daily gregoria ghosh last filled 20mg daily 09/25/22 90d/s pt states she thinks maybe 20mg states she will have her daughter check and call but thinks 20mg daily-notes are made in the pharmacy comments
[2022-11-19 12:21] LABS: Add Urine Microscopic? YES; Bilirubin Urine Neg (Negative); Blood Urine Neg (Negative); Glucose Urine UA Norm (Normal); Ketones Urine Negative (Negative); Leukocyte Esterase Urine Negative (Negative); Nitrate Urine Negative (Negative); Protein Urine 3+ (Negative); Specific Gravity, Urine 1.015 (1.005-1.030); Urine Appearance Clear (CLEAR); Urine Color Yellow (Yellow); Urobilinogen Urine Norm (Negative); pH Urine 6.5 (5-7)
[2022-11-19 12:22] LABS: Add Urine Culture? No; Mucus Urine 2+ /hpf; RBC Urine 0-4 /hpf (0-2); Squamous Epithelial Cell Urine 0-4 /hpf (0-5); WBC Urine 0-4 /hpf (0-5)
== END 2022-11-19 13:55 | disposition home or self-care (01) ==
PROVIDERS: Emergency Provider Family Medicine; PCP Family Medicine
DX: R09.02 Hypoxemia (principal); Z79.82 Long term (current) use of aspirin; Z79.01 Long term (current) use of anticoagulants; Z79.4 Long term (current) use of insulin; Z87.891 Personal history of nicotine dependence; E78.5 Hyperlipidemia, unspecified; I10 Essential (primary) hypertension; E11.9 Type 2 diabetes mellitus without complications; Z99.81 Dependence on supplemental oxygen
CPT/HCPCS: 70450; 71045; 80053; 81001; 83880; 85025; 93005; 99285

== ENCOUNTER 2022-12-16 09:38 | Inpatient (IN) | payer MEDICARE, MEDICAID, SELFPAY ==
[2022-12-16] VITALS (93 sets, daily range): BP systolic 81–146; BP diastolic 43–83; PULSE 0–98; RESP 4–44; TEMP 36.4–36.7; O2SAT 82–96
--- NOTE | 2022-12-16 09:43 | ECG_ITS ---
[facility] Test Date: 2022-12-16 Pat Name: Nimo Kennedy Department: Room: Gender: Female Tortilla Maker: : 1940 Requested By: Mercedez Correa Order Number: [id number] Celena MD: Michi Sierra M.D. Measurements Intervals [place] Rate: 88 P: 0 ME: 0 QRS: 18 QRSD: 97 T: 92 QT: 387 QTc: 469 Interpretive Statements ATRIAL FIBRILLATION SEPTAL MYOCARDIAL INFARCTION , OF INDETERMINATE AGE [40+ ms Q WAVE IN V1/V2] Compared to ECG 11/19/2022 09:58:02 Sinus rhythm no longer present Myocardial infarct finding still present Electronically Signed On 12-16-2022 16:36:42 CDT by Michi Sierra M.D. [email or web address]
--- NOTE | 2022-12-16 09:50 | XR_ITS ---
WS: [id number] XR chest 1V portable [id number] REASON FOR EXAM: sob FINDINGS: Compared to the examination of 11/19/2022. There is moderately increased pleural fluid on the left and a significant right pleural effusion has developed. There is cardiomegaly and pulmonary venous distention. Significant pulmonary edema is not identified. IMPRESSION: Interval increase in pleural effusions most notably on the right as above.
--- NOTE | 2022-12-16 09:53 | USCV_ITS ---
Brent Nimo Age: 82 Gender: F : 1940 Exam Date: 12/16/2022 10:46 Ordering Phys: Mercedez Correa MD Technologist: RISHABH [place]am [place] [facility] [place]: LLE SWELLING HISTORY: Lower extremity swelling. PROCEDURES: Venous duplex imaging was performed in only the left lower extremity. The following venous structures were evaluated: common femoral vein, profunda vein, proximal portion of the greater saphenous vein, superficial femoral vein, and the popliteal vein. In addition, the posterior tibial and peroneal trunk were evaluated. Serial compression, augmentation maneuvers, and spectral Doppler flow evaluation were performed. FINDINGS: No evidence of DVT seen in any vessel visualized at this time. Edema seen in left lower leg CONCLUSIONS No evidence of left lower extremity DVT. Godfrey Zapata MD (Electronically Signed) Final Date: 16 December 2022 11:08 S
[2022-12-16 10:00] LABS: Basophils % 0.1 %; Eosinophils % 0.2 %; Hematocrit 46.9 % (36-47); Lymphocytes # 0.4 10^3/uL (0.8-4.8); Mean Corpuscular HGB Conc 32.4 g/dL (30-55); Mean Corpuscular Hemoglobin 29.7 pg (27-33); Mean Corpuscular Volume 91.6 fl (85-98); Mean Platelet Volume 11.6 fL (7.4-10.4); Monocytes # 0.7 10^3/uL (0.2-0.9); Monocytes % 7.8 %; Neutrophils # 7.58 10^3/uL (1.8-7.7); Neutrophils % 86.6 %; Nucleated Red Blood Cells % 0 %; Platelet Count 236 10^3/cmm (157-399); Red Blood Count 5.12 10^6/uL (3.85-5.65); Red Cell Distribution Width 14.6 % (12.1-15.1); White Blood Count 8.76 10^3/uL (3.29-11.43)
--- NOTE | 2022-12-16 10:00 | ED_ITS ---
HPI - SOB/Dyspnea General: Chief Complaint: Shortness of Breath/Dyspnea Stated Complaint: Resp Distress Time Seen by Provider: 12/16/22 09:39 Source: patient and EMS Mode of arrival: EMS Limitations: no limitations History of Present Illness: HPI Narrative: 82-year-old female states she been having dyspnea over the last 4 to 5 days. She states that she does have a history of CHF along with COPD and a mild cough denies any fever denies any chest pain. Patient was given Decadron along with breathing treatment in route states she is feeling improved she is on 3 L of oxygen at home here her pulse ox is 92% she is also had some swelling in her left leg. Associated symptoms: Deny abdominal pain, chest pain, fever(s), nausea or vomiting Review of Systems Const: Denies: fever(s), chills, body aches or change in appetite ENMT: Denies: throat pain or dental pain Card: Denies: chest pain Resp: Reports: dyspnea GI: Reports: diarrhea; Denies: abdominal pain, nausea or vomiting Musc: Reports: extremity swelling; Denies: neck pain or back pain Skin/Breast: Denies: rash Neuro: Denies: headache(s) PFSH ED PFSH: Medical History Acute bronchitis and bronchiolitis Benign mass of parotid gland DJD (degenerative joint disease) Dyslipidemia Essential (primary) hypertension History of malignant melanoma History of nonmelanoma skin cancer Incomplete emptying of bladder Left anterior knee pain Nocturia Proteinuria PVD (peripheral vascular disease) Recurrent UTI Tuberculosis Type 2 diabetes mellitus, with long-term current use of insulin Urgency incontinence Urinary urgency Surgical History H/O breast biopsy H/O section H/O: hysterectomy History of surgery on lower extremity History of tonsillectomy Family History Mother , at age 93 Diabetes CAD (coronary artery disease) Brother Leukemia Cancer Diabetes Family/Other Cancer Diabetes Daughter Chronic kidney disease (CKD) Cancer Father , at age 83 Stroke Grandmother Cancer Denies family history of Clotting disorder Dementia Suicide Anesthesia complication Bleeding disorder Lung disease Social History Smoking and tobacco status: former smoker Alcohol intake: current Alcohol intake frequency: holidays/special occasions only Substance/Drug Use: never Adopted: No Caregiver/support person: No Household members: family Marital status: Current occupational status: retired Physical Exam Const: COMMON NORMALS: patient oriented x3 GENERAL APPEARANCE: in distress HENMT: COMMON NORMALS: normocephalic and atraumatic HEAD & SCALP: normocephalic and atraumatic Eye: COMMON NORMALS: Equal, round and reactive pupils present and EOMs intact bilaterally PUPIL: Yes Equal, round and reactive pupils present Neck/C-Spine: COMMON NORMALS: full ROM and supple Chest: COMMONS NORMALS: normal inspection of the chest and normal palpation of entire chest wall Resp: COMMON NORMALS: No retractions and No use of accessory muscles AUSCULTATION: rales and diminished lung sounds on the right Cardio: COMMON NORMALS: regular rate, regular rhythm and No murmurs present (Cardio) RATE: regular rate RHYTHM: regular rhythm GI: COMMON NORMALS: Normal to inspection, nondistended, normoactive bowel sounds present, Soft to palpation, non-tender and no masses PALPATION: Yes Soft to palpation Extremity: COMMON NORMALS: full ROM NARRATIVE EXTREMITY EXAM: swelling to LLE Neuro: COMMON NORMALS: patient oriented x3, moves all extremities and no focal motor deficits Psych: COMMON NORMALS: mental status grossly normal, Normal thought process present and cooperative THOUGHT PROCESS: Normal thought process present Skin: COMMON NORMALS: no rashes or lesions noted and no wounds GENERAL SKIN EXAM: no rashes or lesions noted Course Vital Signs: Vital signs: Vital Signs Temperature 97.5 F L 12/16/22 09:39 Pulse Rate 80 12/16/22 11:30 Respiratory Rate 35 H 12/16/22 11:30 Blood Pressure 126/77 12/16/22 11:30 Pulse Oximetry 94 12/16/22 11:30 Oxygen Delivery Me thod Nasal Cannula 12/16/22 09:48 Oxygen Flow Rate 4 12/16/22 09:48 MDM - SOB/Dyspnea Medical Decision Making Patient presents here with right-sided pleural effusion likely from her CHF is likely causing her dyspnea spoke to the hospitalist will admit at this time. Medical Records I reviewed the patient's medical records. Lab Data I reviewed the patient's lab results. 12/16/22 09:26 12/16/22 09:26 Labs/Radiology: Laboratory Results WBC 8.76 10^3/uL (3.29-11.43) 12/16/22 09: RBC 5.12 10^6/uL (3.85-5.65) 12/16/22 09: Hgb 15.20 g/dL (11.27-16.99) 12/16/22 09: Hct 46.9 % (36-47) 12/16/22 09: MCV 91.6 fl (85-98) 12/16/22 09: MCH 29.7 pg (27-33) 12/16/22 09: MCHC 32.4 g/dL (30-55) 12/16/22 09: RDW 14.6 % (12.1-15.1) 12/16/22 09: Plt Count 236 10^3/cmm (157-399) 12/16/22 09: MPV 11.6 fL (7.4-10.4) H 12/16/22 09: Neut % (Auto) 86.6 % 12/16/22 09: Lymph % (Auto) 5.0 % 12/16/22 09: [place] % (Auto) 7.8 % 12/16/22 09: Eos % (Auto) 0.2 % 12/16/22 09: Baso % (Auto) 0.1 % 12/16/22 09: Neut # (Auto) 7.58 10^3/uL (1.8-7.7) 12/16/22 09: Lymph # (Auto) 0.4 10^3/uL (0.8-4.8) L 12/16/22 09: [place] # (Auto) 0.7 10^3/uL (0.2-0.9) 12/16/22 09: Eos # (Auto) 0.0 10^3/uL (0.0-0.8) 12/16/22 09: Baso # (Auto) 0.0 10^3/uL (0.0-0.1) 12/16/22 09: Nucleated RBC % (auto) 0 % 12/16/22 09:26 Nucleated RBCs # 0.0 /100WBC 12/16/22 09:26 PT 14.70 SECONDS (12.1-14.9) 12/16/22 09:26 INR 1.11 (0.8-1.2) 12/16/22 09:26 Specimen Type Arterial 12/16/22 09:54 Sample Site Radial, left 12/16/22 09:54 ABG pH 7.48 (7.35-7.45) H 12/16/22 09:54 ABG pCO2 43.3 mmHg (35-45) 12/16/22 09:54 ABG pO2 63.2 mmHg (80.0-100.0) L 12/16/22 09:54 ABG HCO3 32.0 mmol/L (22-26) H 12/16/22 09:54 ABG Base Excess 7.5 mmol/L (-2.0-2.0) H 12/16/22 09:54 Hansel Test Pos 12/16/22 09:54 Hematocrit 44.3 % (37-47) 12/16/22 09:54 Hgb O2 Saturation 92.8 % (95-100) L 12/16/22 09:54 Carboxyhemoglobin 1.0 %THgb (0.4-20.1) 12/16/22 09:54 Methemoglobin 0.3 % (0.4-1.5) L 12/16/22 09:54 Total Hemoglobin 14.5 g/dL (12-16) 12/16/22 09:54 O2 Delivery Device Nc 12/16/22 09:54 O2 Liters/Min 4.0 % 12/16/22 09:54 FiO2 36.0 % 12/16/22 09:54 Geotechnical Engineer ID Cak 12/16/22 09:54 Sodium 138 mmol/L (136-145) 12/16/22 09:26 Potassium 3.5 mmol/L (3.5-5.1) 12/16/22 09:26 Chloride 96 mmol/L (98-107) L 12/16/22 09:26 Carbon Dioxide 35 mmol/L (22-29) H 12/16/22 09:26 Anion Gap 10.5 (5-19) 12/16/22 09:26 BUN 15 mg/dL (8-23) 12/16/22 09:26 Creatinine 1.2 mg/dL (0.5-0.9) H 12/16/22 09:26 GFR Calculation Not Reportable 12/16/22 09:26 Glucose 116 mg/dL (65-115) H 12/16/22 09:26 Calculated Osmolality 288 mOsm/kg (285-295) 12/16/22 09:26 Calcium 8.8 mg/dL (8.5-10.5) 12/16/22 09:26 Total Bilirubin 0.6 mg/dL (0.15-1.2) 12/16/22 09:26 AST 53 U/L (0-32) H 12/16/22 09:26 ALT 56 U/L (0-33) H 12/16/22 09:26 Alkaline Phosphatase 60 U/L (35-105) 12/16/22 09:26 NT-Pro-B Natriuret Pep 681 pg/mL (0-450) H 12/16/22 09:26 Total Protein 6.2 g/dL (6.6-8.7) L 12/16/22 09:26 Albumin 3.7 g/dL (3.5-5.2) 12/16/22 09:26 Globulin 2.5 g/dL (1.3-4.6) 12/16/22 09:26 SARS-CoV-2 Ag (Rapid) negative (Negative) 12/16/22 10:09 All radiology interpretation(s) finalized by discharge Discharge Plan Discharge Patient Disposition: Admitted As Inpatient Clinical Impression: Pleural effusion, Dyspnea Condition: Stable Coding Level of Care Code ED Clinical Cytogenetics Director for Jay Haynes
[2022-12-16 10:06] LABS: ABG PCO2 43.3 mmHg (35-45); ABG PH Result 7.48 (7.35-7.45); Arterial Blood Gas Hematocrit 44.3 % (37-47); Base Excess ABG 7.5 mmol/L (-2.0-2.0); Blood Gas Allen Test Pos; Blood Gas Operator Identificat CAK; Blood Gas Sample Site Radial, left; Blood Gas Sample Type Arterial; HGB O2 Sat 92.8 % (95-100); Methemoglobin 0.3 % (0.4-1.5); Oxygen Device NC; PO2 ABG 63.2 mmHg (80.0-100.0); Total Hemoglobin 14.5 g/dL (12-16)
[2022-12-16 10:09] LABS: INR 1.11 (0.8-1.2)
[2022-12-16 10:20] LABS: Alanine Aminotransferase 56 U/L (0-33); Albumin Level 3.7 g/dL (3.5-5.2); Alkaline Phosphatase 60 U/L (35-105); Blood Urea Nitrogen 15 mg/dL (8-23); Calcium 8.8 mg/dL (8.5-10.5); Carbon Dioxide 35 mmol/L (22-29); Chloride 96 mmol/L (98-107); Globulin 2.5 g/dL (1.3-4.6); Glucose 116 mg/dL (65-115); Osmolality Calculated 288 mOsm/kg (285-295); Sodium 138 mmol/L (136-145); Total Bilirubin 0.6 mg/dL (0.15-1.2); Total Protein 6.2 g/dL (6.6-8.7)
[2022-12-16 10:33] LABS: Anion Gap 10.5 (5-19); Aspartate Amino Transferase 53 U/L (0-32); Potassium 3.5 mmol/L (3.5-5.1)
[2022-12-16 10:39] LABS: SARS Covid-2 Antigen negative (Negative)
[2022-12-16 10:50] LABS: NT Pro B Type Natriuretic Pept 681 pg/mL (0-450)
[2022-12-16] MEDS: azithromycin 500 MG in sodium chloride 0.9% 250 ML 250 MG IV (10:55)
--- NOTE | 2022-12-16 10:55 | PC.PHAR ---
pt brought in medication list and states she takes care of her own medications-pt states she takes the medications entered
[2022-12-16] MEDS: cefTRIAXone 1,000 MG in sodium chloride 0.9% (plus) 50 ML 100 MG IV (11:04)
--- NOTE | 2022-12-16 11:23 | CT_ITS ---
WS: [id number] CT CHEST TECHNIQUE: Contrast enhanced CT of the chest with coronal and sagittal reformatted images. CLINICAL INFORMATION: pleural effusion COMPARISON: CTa 11/09/2022 DLP: 580.[address] scans at [facility] use at least one of these dose optimization techniques: automated e xposure control; mA and/or kV adjustment per patient size (includes targeted exams where dose is matc hed to clinical indication); or iterative reconstruction. FINDINGS: Moderate RIGHT pleural effusion progressed compared to previous with compressive atelectasis in the R IGHT lower lobe. Enhancing marked bulky mediastinal subcarinal and RIGHT hilar lymphadenopathy appear s progressed compared to previous suspicious for neoplasm. Bronchovascular thickening along the RIGHT hilum. Mild narrowing of the RIGHT mainstem bronchus and proximal middle lobe bronchus with partial consolidation in the RIGHT middle lobe. No axillary lymphadenopathy. Moderate pericardial effusion progressed compared to previous. Trace LEF T pleural fluid. LEFT lung is otherwise well aerated. RIGHT upper lobe is well aerated. Interstitial edema in the RIGHT lung. Thickening and enhancement of the LEFT greater than RIGHT adrenal glands partially visualized. Vascul ar calcification. Mild kyphosis. Proximal main pulmonary arteries are normal. Small bilateral thyroi d nodules. IMPRESSION: 1. Moderate RIGHT pleural effusion with compressive atelectasis in the RIGHT lower lobe progressed c ompared to previous. 2. Enhancing bulky mediastinal, parabronchial, subcarinal and RIGHT hilar lymphadenopathy significan tly progressed compared to previous. Findings suspicious for neoplasm. Lymphoma and collagen vascular disease are additional considerations. 3. Bronchovascular thickening along the RIGHT hilum with consolidation in the RIGHT middle lobe some of which may be due to postobstructive pneumonia. 4. Moderate pericardial effusion progressed. 5. Trace LEFT pleural effusion. 6. No axillary lymphadenopathy. 7. Partially visualized nonspecific adrenal gland thickening and enhancement bilaterally. \ Notified Jean Coker MD at 12/16/2022 1:36 PM.
--- NOTE | 2022-12-16 11:29 | PM.HP ---
Providers/Chief Complaint Admitting Physician: Jean Coker MD, hospitalist Primary Care Provider: Kalyan Mejia MD Chief Complaint: Resp Distress History of Present Illness Nimo Kennedy is a 82 year old female who presents to the emergency department complaining of shortness of breath. She states she has been short of breath since her last discharge and it is slowly getting worse. No fever, cough. Left leg swells at times. She states the swelling has been worse in the past. She believes is generated from a broken bone 5 to 6 years ago. No nausea, vomiting, dysphagia. Has been using 4 L since discharge from the hospital in October. At that time she had a small pleural effusion on the right, and was treated for pneumonia, congestive heart failure, A-fib with RVR. She reports loose stool on occasion. Review of Systems General: Reports: 10 or more systems reviewed and unremarkable except in HPI and below Card: Denies: chest pain Resp: Reports: dyspnea; Denies: productive cough or non-productive cough GI: Denies: abdominal pain, nausea, vomiting, hematochezia or melena Medications/Allergies Home Medications Medication Instructions Recorded Confirmed Last Taken Type blood-glucose meter (Accu-Chek #1 ea 11/18/19 12/16/22 Unknown Rx Daphne Plus Meter) lancets (Accu-Chek Fastclix Lancet #200 ea 11/18/19 12/16/22 Unknown Rx Drum) calcium carbonate 500 mg calcium 500 mg PO DAILY 02/27/20 12/16/22 11/08/22 History (1,250 mg) capsule (Calci-Mix) blood-glucose meter,continuous #1 ea 05/16/21 12/16/22 Unknown Rx (Dexcom G6 Embedded Software Development Engineer) blood-glucose transmitter (Dexcom #1 ea 05/16/21 12/16/22 Unknown Rx G6 Transmitter device) insulin degludec 200 unit/mL (3 See Rx Instructions .Route 09/23/21 12/16/22 12/16/22 Rx mL) subcutaneous pen (Tresiba .COMPLEX #101 mL FlexTouch U-200 insulin) blood-glucose sensor (Dexcom G6 #3 ea 10/01/21 12/16/22 Unknown Rx Sensor device) blood sugar diagnostic (Accu-Chek #200 ea 10/23/21 12/16/22 Unknown Rx Daphne Plus test strips) pen needle, diabetic 31 gauge x #200 ea 10/23/21 12/16/22 Unknown Rx 3/16 (BD Ultra-Fine Mini Pen Needle) carvedilol 12.5 mg tablet 12.5 mg PO BID #180 tabs 04/15/22 12/16/22 12/16/22 Rx cilostazol 100 mg tablet 100 mg PO BID #60 tabs 10/29/22 12/16/22 12/16/22 Rx gabapentin 100 mg capsule 200 mg PO QPM 10/29/22 12/16/22 12/15/22 History mirabegron 25 mg tablet,extended 25 mg PO DAILY 11/09/22 12/16/22 11/08/22 History release 24 hr (Myrbetriq) qrhth-9w-noi-epa-fish oil 120 1 cap PO DAILY 11/09/22 12/16/22 11/08/22 History mg-180 mg-60 mg-1,200 mg capsule, DR (Fish Oil) rosuvastatin 20 mg tablet 20 mg PO DAILY@13 11/09/22 12/16/22 11/18/22 History insulin lispro 100 unit/mL See Rx Instructions .Route 11/12/22 12/16/22 11/19/22 Rx subcutaneous pen (Humalog KwikPen .COMPLEX #27 mL 30 units (U-100) Insulin) aspirin 81 mg tablet,delayed 81 mg PO QAM 11/19/22 12/16/22 12/16/22 History release cholecalciferol (vitamin D3) 25 25 mcg PO DAILY 11/19/22 12/16/22 Unknown History mcg (1,000 unit) capsule (Vitamin D3) furosemide 20 mg tablet (Lasix) 20 mg PO DAILY PRN Edema 11/19/22 12/16/22 11/19/22 History lisinopril 20 mg tablet 20 mg PO DAILY 11/19/22 12/16/22 Unknown History potassium chloride 8 mEq 8 meq PO QAM 11/19/22 12/16/22 12/16/22 History tablet,extended release amiodarone 200 mg tablet (Pacerone) 200 mg PO DAILY #90 tabs 12/05/22 12/16/22 Unknown Rx apixaban 5 mg tablet (Eliquis) 5 mg PO Q12H 12/16/22 12/16/22 12/16/22 History diphenoxylate-atropine 2.5 1 - 2 tab PO QID PRN Diarrhea 12/16/22 12/16/22 Unknown History mg-0.025 mg tablet Allergies Allergy/AdvReac Type Severity Reaction Status Date / Time codeine Allergy Unknown Verified 12/16/22 09:49 erythromycin base Allergy Unknown Verified 12/16/22 09:49 PFSH Acute PFSH: Medical History (Updated 12/16/22 @ 12:14 by Jean Coker MD) Acute bronchitis and bronchiolitis Acute diastolic heart failure Benign mass of parotid gland DJD (degenerative joint disease) Dyslipidemia Essential (primary) hypertension History of malignant melanoma History of nonmelanoma skin cancer Incomplete emptying of bladder Left anterior knee pain Nocturia Proteinuria PVD (peripheral vascular disease) Recurrent UTI Tuberculosis Type 2 diabetes mellitus, with long-term current use of insulin Urgency incontinence Urinary urgency Surgical History H/O breast biopsy H/O section H/O: hysterectomy History of surgery on lower extremity History of tonsillectomy Family History Mother , at age 93 Diabetes CAD (coronary artery disease) Brother Leukemia Cancer Diabetes Family/Other Cancer Diabetes Daughter Chronic kidney disease (CKD) Cancer Father , at age 83 Stroke Grandmother Cancer Denies family history of Clotting disorder Dementia Suicide Anesthesia complication Bleeding disorder Lung disease Social History Smoking and tobacco status: former smoker Alcohol intake: current Alcohol intake frequency: holidays/special occasions only Substance/Drug Use: never Adopted: No Caregiver/support person: No Household members: family Marital status: Current occupational status: retired Vitals/I&O/Wt Last Vital Signs Temp 97.5 F L 12/16/22 09:39 Pulse 80 12/16/22 11:15 Resp 32 H 12/16/22 11:15 BP 108/60 12/16/22 11:15 Pulse Ox 94 12/16/22 11:15 O2 Del Method Nasal Cannula 12/16/22 09:48 O2 Flow Rate 4 12/16/22 09:48 Weight last 48 hrs Weight 90.718 kg Physical Exam Narrative: General exam is a white female, obviously tachypneic, on 4 L of oxygen with a respiratory rate around 25. HEENT: Atraumatic and normocephalic. Oropharynx clear Neck is supple no lymphadenopathy thyromegaly Cardiovascular irregular irregular with 2/6 systolic murmur Lungs diminished breath sounds bilaterally right greater than left. Abdomen is soft nontender with positive bowel sounds Extremities no cyanosis clubbing. Left lower extremity has edema. No erythema. Distal pulses intact. Cap refill intact. Skin no rash Neuro no obvious focal deficits. Data 12/16/22 09:26 12/16/22 09:26 Other Labs: Left lower extremity with negative venous duplex Chest x-ray I reviewed and read as well demonstrates bilateral pleural effusions, right greater than left, right much more significant than previous. Cardiomegaly and atherosclerotic disease are noted. Previous echocardiogram 01/17 demonstrated 2/4 diastolic dysfunction, EF of 55%. Echocardiogram on November 09 demonstrated preserved EF, diastolic but dysfunction could not be determined, IVC was dilated, probable mild aortic stenosis, small insignificant pericardial effusion EKG which I reviewed demonstrates atrial fibrillation, normal axis, nonspecific ST-T wave changes, rate of 90 blood cultures were done in the ER ABG demonstrated pH of 7.48, PCO2 43, PO2 of 63 on 4 L LFTs normal with exception of an AST of 53 and ALT of 56. BNP 681 Urinalysis not completed Rapid COVID-negative Micro: Microbiology 12/16/22 11:14 Blood Culture - Preliminary Blood SPECIMEN COLLECTED 12/16/22 11:07 Blood Culture - Preliminary Blood SPECIMEN COLLECTED A&P Assessment and plan (1) Acute diastolic heart failure: Patient has evidence of acute diastolic heart failure. At home she has been losing Lasix 20 mg daily as needed Previous echocardiograms demonstrated preserved EF, diastolic dysfunction. Lasix 40 mg IV now, and every 12 hours. Close follow-up of electrolytes, renal function while using this IV medication to try to prevent worsening renal dysfunction. She does have some element of chronic kidney disease. At this point we will not repeat echocardiogram. (2) Pleural effusion: Obtain CT of chest to delineate and look for any other causes of pleural effusion. I believe her pleural effusion is likely secondary to heart failure but will analyze following removal of fluid. Hold Eliquis to facilitate thoracentesis tomorrow, as it will be more safe to do this off anticoagulation. I discussed with radiology. I believe her pleural effusion is causing acute respiratory distress, and hypoxic respiratory failure. This should improve significantly with removal of significant pleural fluid on the right. Risks and benefits of thoracentesis were discussed in detail with the patient including bleeding, infection, need for further procedure secondary to potential complication of pneumothorax. She agreed to proceed. (3) Atrial fibrillation: Continue amiodarone, carvedilol. This appears to be controlling her rate well. Hold Eliquis (4) Type 2 diabetes mellitus, with long-term current use of insulin: Continue long-acting insulin. Reduce amount for hospitalization. Sliding scale insulin. (5) Transaminitis: Likely secondary to heart failure. Repeat CMP tomorrow. Plan Chronic kidney disease. BMP daily. Hold ARB secondary to ongoing diuresis and likely large volume thoracentesis tomorrow. SCDs for DVT prophylaxis. Pharmacologic prophylaxis is going to be held, to allow for thoracentesis tomorrow. She did receive a dose of Eliquis earlier this morning which she took at home. Attestations Medical Necessity Statement*: Will need greater than 2 midnight stay for evaluation and treatment of acute hypoxic respiratory failure, bilateral pleural effusions right greater than left, treatment of diastolic heart failure with IV diuresis. Diagnoses Acute diastolic heart failure I50.31 Pleural effusion J90 Atrial fibrillation I48.91 Type 2 diabetes mellitus, with long-term current use of insulin E11.9; Z79.4 Transaminitis R74.01 Time Spent (min) 46
[2022-12-16] MEDS: albuterol 2.5 mg/3 mL Neb INHALATION (11:43)
[2022-12-16] MEDS: FUROsemide 10 mg/mL SDV 4mL 40 MG IVP ×2 (11:45→21:27)
[2022-12-16] MEDS: iohexol 350 mg/mL 500 mL Btl (per mL) IV (12:53)
[2022-12-16 14:54] LABS: Glucose Point of Care 66 mg/dL (70-110)
[2022-12-16 15:54] LABS: Glucose Point of Care 166 mg/dL (70-110)
[2022-12-16 18:15] LABS: Glucose Point of Care 156 mg/dL (70-110)
[2022-12-16] MEDS: carvedilol 12.5 mg Tablet PO (18:27)
[2022-12-16] MEDS: gabapentin 100 mg Capsule 200 MG PO (18:27)
[2022-12-16] MEDS: atorvastatin 40 mg Tablet 80 MG PO (18:27)
[2022-12-16] MEDS: insulin glargine 100 units/1 mL 50 UNIT SUBCUT (18:38)
[2022-12-16 21:19] LABS: Glucose Point of Care 228 mg/dL (70-110)
[2022-12-16] MEDS: insulin lispro 100 unit/1 mL SUBCUT (21:38)
[2022-12-17] VITALS (12 sets, daily range): BP systolic 102–162; BP diastolic 54–76; PULSE 73–101; RESP 14–22; TEMP 36.4–36.9; O2SAT 90–95
[2022-12-17 05:45] LABS: Basophils % 0.1 %; Hematocrit 46.8 % (36-47); Lymphocytes # 0.4 10^3/uL (0.8-4.8); Mean Corpuscular HGB Conc 32.3 g/dL (30-55); Mean Corpuscular Hemoglobin 29.5 pg (27-33); Mean Corpuscular Volume 91.4 fl (85-98); Mean Platelet Volume 10.6 fL (7.4-10.4); Monocytes # 0.6 10^3/uL (0.2-0.9); Monocytes % 5.9 %; Neutrophils # 8.35 10^3/uL (1.8-7.7); Neutrophils % 89.4 %; Nucleated Red Blood Cells % 0 %; Platelet Count 231 10^3/cmm (157-399); Red Blood Count 5.12 10^6/uL (3.85-5.65); Red Cell Distribution Width 14.6 % (12.1-15.1); White Blood Count 9.34 10^3/uL (3.29-11.43)
[2022-12-17 06:01] LABS: Alanine Aminotransferase 58 U/L (0-33); Albumin Level 3.5 g/dL (3.5-5.2); Alkaline Phosphatase 55 U/L (35-105); Blood Urea Nitrogen 17 mg/dL (8-23); Calcium 8.1 mg/dL (8.5-10.5); Carbon Dioxide 29 mmol/L (22-29); Chloride 101 mmol/L (98-107); Glucose 60 mg/dL (65-115); Magnesium 1.8 mg/dL (1.7-2.3); Osmolality Calculated 291 mOsm/kg (285-295); Sodium 141 mmol/L (136-145); Total Bilirubin 0.5 mg/dL (0.15-1.2); Total Protein 5.5 g/dL (6.6-8.7)
[2022-12-17 06:03] LABS: Aspartate Amino Transferase 41 U/L (0-32)
[2022-12-17] MEDS: vancomycin 1,000 MG in sodium chloride 0.9% 250 ML 250 MG IV (06:18)
[2022-12-17 06:34] LABS: Glucose Point of Care 58 mg/dL (70-110)
--- NOTE | 2022-12-17 08:23 | P.PN_ITS ---
Subjective Subjective: Nimo reports she had some diarrhea last night. No abdominal pain this morning. Still short of breath, requiring 4 L. Discussed with her and her daughter in depth the overall plan, and possible bronchoscopy next week. Medications: Reviewed: Yes Vitals/I&O/Wt Last Vital Signs Temp 98.2 F 12/17/22 08:00 Pulse 101 H 12/17/22 08:00 Resp 18 12/17/22 08:00 BP 154/65 12/17/22 08:00 Pulse Ox 90 12/17/22 08:00 O2 Del Method Nasal Cannula 12/17/22 08:00 O2 Flow Rate 4 12/16/22 20:00 12/16/22 12/17/22 12/17/22 22:59 06:59 14:59 Intake Total 250 / 300 250 / 250 Balance 250 / 300 250 / 250 Weight last 48 hrs Weight 90.718 kg Physical Exam Narrative: General exam on 4 L of oxygen, who appears to be in a little less respiratory distress. Cardiovascular irregular irregular with 2/6 systolic murmur Lungs diminished breath sounds bilaterally right greater than left. Abdomen is soft nontender with positive bowel sounds Extremities no cyanosis clubbing. Left lower extremity has edema. No erythema. Distal pulses intact. Cap refill intact. Data 12/17/22 05:38 12/17/22 05:38 Other Labs: Blood culture positive bacilli. Repeat cultures ordered. Vancomycin initiated by serina Micro: Microbiology 12/17/22 06:27 Blood Culture - Preliminary Blood SPECIMEN COLLECTED 12/17/22 06:25 Blood Culture - Preliminary Blood SPECIMEN COLLECTED 12/16/22 11:14 Blood Culture - Preliminary Blood 12/16/22 11:07 Blood Culture - Preliminary Blood SPECIMEN COLLECTED A&P Assessment and plan (1) Acute diastolic heart failure: Patient has evidence of acute diastolic heart failure. At home she has been losing Lasix 20 mg daily as needed Previous echocardiograms demonstrated preserved EF, diastolic dysfunction. Renal function stable. Change Lasix to 40 mg IV every 24 hours. She is having some output from loose stool, and a thoracentesis is also planned today. At this point we will not repeat echocardiogram. BMP daily to monitor for renal dysfunction, electrolyte abnormalities on IV potassium. (2) Pleural effusion: CT of chest demonstrated significant right pleural effusion, significant ly mphadenopathy with lymphoma not being ruled out. Eliquis has been held to facilitate thoracentesis today. I suspect her breathing will improve with removal of pleural fluid. This will be both therap eutic and diagnostic. Risks and benefits of thoracentesis were discussed in detail with the patient including bleeding, infection, need for further procedure secondary to potential complication of pneumothorax. She agreed to proceed. (3) Atrial fibrillation: Continue amiodarone, carvedilol. This appears to be controlling her rate well. Holding Eliquis for procedure today. (4) Type 2 diabetes mellitus, with long-term current use of insulin: Continue long-acting insulin. Has blood sugars lower reduce Lantus again to 30 units at night. Changed to mild sliding scale insulin. (5) Transaminitis: Slightly better, continue to follow daily Plan Chronic kidney disease. BMP daily. Hold ARB secondary to ongoing diuresis and likely large volume thoracentesis planned today Hypokalemia, supplement Diarrhea, check C. difficile toxin Positive blood culture. Suspect contaminant. Vancomycin IV started, repeat cultures drawn. SCDs for DVT prophylaxis. Pharmacologic prophylaxis is going to be held, to allow for thoracentesis tomorrow. She did receive a dose of Eliquis earlier this morning which she took at home. Attestations Medical Necessity Statement*: Needs continued hospitalization for treatment of respiratory failure with right thoracentesis, evaluation of diarrhea, supplementation of potassium, further diuresis with IV Lasix. Diagnoses Acute diastolic heart failure I50.31 Pleural effusion J90 Atrial fibrillation I48.91 Type 2 diabetes mellitus, with long-term current use of insulin E11.9; Z79.4 Transaminitis R74.01 Time Spent (min) 31
[2022-12-17] MEDS: FUROsemide 10 mg/mL SDV 4mL 40 MG IVP (08:39)
[2022-12-17] MEDS: potassium chloride ER 20 mEq Tablet 40 MEQ PO ×2 (08:39→12:47)
[2022-12-17] MEDS: carvedilol 12.5 mg Tablet PO ×2 (08:39→17:22)
[2022-12-17] MEDS: amiodarone 200 mg Tablet PO (08:39)
--- NOTE | 2022-12-17 10:00 | US_ITS ---
WS: [id number] ULTRASOUND-GUIDED THORACENTESIS, RIGHT HISTORY: right pleural effusion Procedure, risks, and complications were explained to the patient. With the patient in an upright pos ition, the skin over the RIGHT posterior thorax was cleansed with ChloraPrep and anesthetized with 1% buffered lidocaine. A 5 Norwegian Yueh needle is inserted into the pleural fluid without complication. Approximately 1100 cc of light red pleural fluid is removed without difficulty. Pleural fluid specimen collected for analysis. IMPRESSION: 1. RIGHT thoracentesis yielding 1100 cc of fluid. 2. Chest radiograph to follow to evaluate for pneumothorax. 3. Pleural fluid collected for analysis as requested.
--- NOTE | 2022-12-17 10:52 | PC.CHAP ---
Pastoral Care Encounter/Spiritual Assessment Type of Contact [] Declined fretted instrument inspector visit [] Patient/Family/Request visit [] Outpatient visit [] Follow-up visit [] Physician referral [] Code/Alert [x] Routine visit [] Staff referral [] Actively dying [] Patient sleeping [] Family support [] [] Out of room [] Palliative care [] [] Receiving care in room [] Pre-surgical visit [] Trauma [] Long length of stay [] ICU visit [] Other: Relational/Emotional Strength [x] Patient feels connected with others/family/visitors/staff [] Distress [] Loneliness/isolation [] Abandonment Spirituality of Patient [x] Person of Kourtney [] Attends Sabianism of their Kourtney [x] Believes in Prayer [] Reads Bible or Oriental Orthodox materials [] There are Spiritual issues to be addressed Talk Show Host Interventions [x] Prayer [x] Active listening [] Non-anxious presence [] Spiritual/emotional support [] Crisis/trauma care [] Spiritual counseling [] Bereavement support [] Provided bereavement packet [] Provided Bible/devotional materials [] Provided toy/stuffed animal, coloring book to patient or family member [] Provided Communion [] Anointing/[place] [] Salvation [] Completed spiritual assessment [] Other: Impact on Illness or Injury [] Angry [] Fearful [] Anxious [] Often cries [] Exhaustion [] Unable to work [] Unable to attend mandaeism [] Unable to walk/stand [] Unable to read [] Unable to drive [] Unable to eat/drink [] Unable to sleep [] Unable to be with family [] Patient intubated [] Other: Summary Time spent with patient 10 min
[2022-12-17 11:45] LABS: Glucose Point of Care 124 mg/dL (70-110)
[2022-12-17] MEDS: atorvastatin 40 mg Tablet 80 MG PO (12:47)
[2022-12-17 13:20] LABS: Add Urine Culture? No; Bacteria Urine TRACE /hpf; Bilirubin Urine Neg (Negative); Blood Urine Neg (Negative); Glucose Urine UA Norm (Normal); Hyaline Casts Urine 0-4 /lpf; Ketones Urine Negative (Negative); Leukocyte Esterase Urine Negative (Negative); Mucus Urine TRACE /hpf; Nitrate Urine Negative (Negative); Protein Urine 1+ (Negative); RBC Urine 0-4 /hpf (0-2); Squamous Epithelial Cell Urine 0-4 /hpf (0-5); Urine Appearance Clear (CLEAR); Urine Color Straw (Yellow); Urobilinogen Urine Norm (Negative); WBC Urine 0-4 /hpf (0-5); pH Urine 6 (5-7)
[2022-12-17 14:42] LABS: Glucose Point of Care 42 mg/dL (70-110)
[2022-12-17] MEDS: dextrose 50% syringe 50 mL IVP (14:44)
--- NOTE | 2022-12-17 15:32 | XR_ITS ---
WS: [id number] XR chest 1V portable [id number] REASON FOR EXAM: post thoracentesis FINDINGS: Removal of a significant amount of the right pleural fluid. No pneumothorax. Residual right lower carrillo g atelectasis. Removal of the pleural fluid and change in the position of the EKG pad over the right chest reveals a 4.7 cm mass in the right lung. In retrospect this mass is present on previous examination of 11/09/2022 and 11/19/2022 tending to be o bscured by the interstitial edema from the congestive heart failure. IMPRESSION: Post thoracentesis without pneumothorax. A right lung mass is now evident.
--- NOTE | 2022-12-17 15:43 | PC.NURSE ---
Dr. Sethi performs right thoracentesis at bedside. One liter of fluid removed. Pt tolerated well. VSS stable before and after procedure. Stat PCXR completed after procedure.
[2022-12-17 15:47] LABS: Cyto Order Verification No Order
[2022-12-17 16:03] LABS: Body Fluid Polynuclear #Cells 0.008; Body Fluid WBC 450 /uL; Monocytes # Body Fluid 0.442
[2022-12-17 16:08] LABS: Hematocrit Body Fluid 0.1 %
[2022-12-17 16:12] LABS: Apprearance, Body Fluid CLOUDY; Color, Body Fluid SLIGHT PINK; PATH Referral YES
--- NOTE | 2022-12-17 16:30 | PC.NURSE ---
Per Dr. Coker, pt may resume diet following thoracentesis.
[2022-12-17 16:55] LABS: Albumin Body Fluid 1.2 g/dL; Creatinine Body Fluid 1.08 (0.5-0.9); LDH Pleural Fluid 111 U/L; Total Protein Pleural Fluid 1.8 g/dL; Triglycerides, Pleural Fluid 9 mg/dL
[2022-12-17 16:56] LABS: Glucose Point of Care 80 mg/dL (70-110)
[2022-12-17] MEDS: gabapentin 100 mg Capsule 200 MG PO (17:22)
[2022-12-17 20:31] LABS: Glucose Point of Care 134 mg/dL (70-110)
[2022-12-17] MEDS: insulin glargine 100 units/1 mL 20 UNIT SUBCUT (21:04)
[2022-12-18] VITALS (11 sets, daily range): BP systolic 103–154; BP diastolic 53–68; PULSE 55–89; RESP 14–18; TEMP 36.5–36.8; O2SAT 90–94
[2022-12-18 01:09] LABS: Glucose Point of Care 47 mg/dL (70-110)
--- NOTE | 2022-12-18 03:19 | PC.NURSE ---
At 0100 patient's blood sugar was 47. Patient was awake, alert and oriented. Patient ate crackers and drank an ensure. Patient's blood sugar is now 229.
[2022-12-18 04:35] LABS: Glucose Point of Care 229 mg/dL (70-110)
[2022-12-18 05:00] LABS: Basophils % 0.1 %; Eosinophils % 0.1 %; Hematocrit 47.6 % (36-47); Lymphocytes # 0.6 10^3/uL (0.8-4.8); Lymphocytes % 3.9 %; Mean Corpuscular HGB Conc 31.9 g/dL (30-55); Mean Corpuscular Hemoglobin 29.6 pg (27-33); Mean Corpuscular Volume 92.6 fl (85-98); Mean Platelet Volume 11.4 fL (7.4-10.4); Monocytes # 1.1 10^3/uL (0.2-0.9); Monocytes % 7.6 %; Neutrophils # 12.73 10^3/uL (1.8-7.7); Neutrophils % 87.6 %; Nucleated Red Blood Cells % 0 %; Platelet Count 222 10^3/cmm (157-399); Red Blood Count 5.14 10^6/uL (3.85-5.65); White Blood Count 14.52 10^3/uL (3.29-11.43)
[2022-12-18] MEDS: aspirin 81 mg EC Tablet PO (05:26)
[2022-12-18] MEDS: vancomycin 1,000 MG in sodium chloride 0.9% 250 ML 250 MG IV (05:26)
[2022-12-18 05:28] LABS: Alanine Aminotransferase 63 U/L (0-33); Albumin Level 3.3 g/dL (3.5-5.2); Alkaline Phosphatase 59 U/L (35-105); Aspartate Amino Transferase 41 U/L (0-32); Blood Urea Nitrogen 19 mg/dL (8-23); Calcium 8.2 mg/dL (8.5-10.5); Carbon Dioxide 29 mmol/L (22-29); Chloride 104 mmol/L (98-107); Globulin 1.9 g/dL (1.3-4.6); Glucose 166 mg/dL (65-115); Magnesium 1.8 mg/dL (1.7-2.3); Osmolality Calculated 304 mOsm/kg (285-295); Sodium 144 mmol/L (136-145); Total Bilirubin 0.5 mg/dL (0.15-1.2); Total Protein 5.2 g/dL (6.6-8.7)
[2022-12-18 05:33] LABS: Anion Gap 14.1 (5-19); Potassium 3.1 mmol/L (3.5-5.1)
[2022-12-18 06:29] LABS: Glucose Point of Care 111 mg/dL (70-110)
--- NOTE | 2022-12-18 07:00 | XR_ITS ---
WS: [id number] XR chest 1V portable [id number] REASON FOR EXAM: FOLLOW UP EFFUSION FINDINGS: There appears to have been interval development of reticular to the examination of the previous day i nterstitial lung opacities suggesting interval development of pulmonary edema. There has been some reexpansion of the atelectatic right lower lung. The chest is otherwise unchanged. IMPRESSION: Concern for developing pulmonary edema.
[2022-12-18] MEDS: potassium chloride ER 20 mEq Tablet 40 MEQ PO ×2 (08:25→12:48)
[2022-12-18] MEDS: amiodarone 200 mg Tablet PO (08:26)
[2022-12-18] MEDS: carvedilol 12.5 mg Tablet PO ×2 (08:26→17:14)
[2022-12-18] MEDS: FUROsemide 10 mg/mL SDV 4mL 40 MG IVP ×2 (08:26→17:14)
[2022-12-18] MEDS: levoFLOXacin 750 mg Tablet PO (09:40)
--- NOTE | 2022-12-18 09:46 | P.PN_ITS ---
Subjective Subjective: Nimo reports she is little bit more short of breath this morning with exertion than she was yesterday. No chest discomfort. Still requiring 4 L. Medications: Reviewed: Yes Vitals/I&O/Wt Last Vital Signs Temp 97.8 F 12/18/22 08:00 Pulse 55 L 12/18/22 08:00 Resp 17 12/18/22 08:00 BP 139/60 12/18/22 08:00 Pulse Ox 93 12/18/22 08:00 O2 Del Method Room Air 12/18/22 03:55 O2 Flow Rate 4 12/17/22 15:40 12/17/22 12/18/22 12/18/22 22:59 06:59 14:59 Intake Total 120 / 370 250 / 620 240 / 240 Balance 120 / 370 250 / 620 240 / 240 Physical Exam Narrative: General exam on 4 L of oxygen, when decreased to 3 L oxygen saturation dipped to 85% Cardiovascular irregular irregular with 2/6 systolic murmur Lungs diminished breath sounds bilaterally right greater than left. Abdomen is soft nontender with positive bowel sounds Extremities no cyanosis clubbing. Left lower extremity has edema. No erythema. Distal pulses intact. Cap refill intact. Data 12/18/22 04:30 12/18/22 04:30 Micro: Microbiology 12/17/22 06:27 Blood Culture - Preliminary Blood NEGATIVE TO DATE 12/17/22 06:25 Blood Culture - Preliminary Blood NEGATIVE TO DATE 12/17/22 15:38 Gram Stain - Final Pleural Fluid 12/16/22 11:07 Blood Culture - Preliminary Blood NEGATIVE TO DATE A&P Assessment and plan (1) Acute diastolic heart failure: Patient has evidence of acute diastolic heart failure. At home she has been losing Lasix 20 mg daily as needed Previous echocardiograms demonstrated preserved EF, diastolic dysfunction. Renal function stable. Creatinine is still stable. Chest x-ray shows infiltrate on the right but may be pulmonary edema. Increase Lasix back up to 4 0 mg IV every 12 hours At this point we will not repeat echocardiogram. BMP daily to monitor for renal dysfunction, electrolyte abnormalities on IV potassium. (2) Pleural effusion: CT of chest demonstrated significant right pleural effusion, significant lymphadenopathy with lymphoma not being ruled out. Eliquis was held to facilitate thoracentesis. Placed on Lovenox currently Thoracentesis was performed yesterday with over a liter removed. This appears transudative. Pulmonary consult planned for tomorrow Repeat x-ray today demonstrates infiltrate on the right concerning for pulmonary edema. Lasix will be increased. I have added some oral Levaquin as well secondary to infiltrate. There has been a previous concern of postobstructive pneumonia. White blood cell count slightly high today. (3) Atrial fibrillation: Continue amiodarone, carvedilol. This appears to be controlling her rate well. (4) Type 2 diabetes mellitus, with long-term current use of insulin: Continue long-acting insulin. Continue mild sliding scale insulin. Blood sugars acceptable currently. (5) Transaminitis: Slightly better, continue to follow daily Plan Chronic kidney disease. BMP daily. Hold ARB currently Hypokalemia, supplement today, recheck tomorrow Diarrhea, check C. difficile toxin. This is pending Positive blood culture. Suspect contaminant. Vancomycin IV started, repeat cultures drawn which are negative to date. SCDs for DVT prophylaxis. Lovenox for DVT prophylaxis. If no further procedures will discuss with pulmonary restarting this, and when they would want it held if she undergoes bronchoscopy next week. Attestations Medical Necessity Statement*: Needs continued hospitalization for further diuresis secondary to pulmonary edema and increased symptomatic shortness of breath in this patient on 4 L of oxygen. Diagnoses Acute diastolic heart failure I50.31 Pleural effusion J90 Atrial fibrillation I48.91 Type 2 diabetes mellitus, with long-term current use of insulin E11.9; Z79.4 Transaminitis R74.01 Time Spent (min) 34
[2022-12-18] MEDS: enoxaparin 100 mg/mL Syringe 90 MG SUBCUT ×2 (11:14→21:34)
[2022-12-18 11:44] LABS: Glucose Point of Care 159 mg/dL (70-110)
[2022-12-18] MEDS: atorvastatin 40 mg Tablet 80 MG PO (12:49)
--- NOTE | 2022-12-18 14:02 | P.CONIM_ITS ---
Providers/Reason For Consult Consulting Physician/Specialty*: Jaime Rey MD FCCP / Pulmonary Critical Medicine Reason for Consult*: Mediatinal and hilar lymphadenopathy on CT chest Requesting Physician: Jean Coker MD Attending Physician: Jean Coker MD Primary Care Provider: Kalyan Mejia MD History of Present Illness History of Present Illness Nimo Kennedy is a 82 year old female with past medical history of A-fib RVR, insulin-dependent type 2 diabetes mellitus, peripheral vascular disease, dyslipidemia, aortic valve sclerosis, CKD stage III, diastolic CHF, LVH, prior history of smoking, COPD She was admitted to [facility] in October 2022 for acute hypoxic respiratory failure secondary to fluid overload, pulm edema, A-fib with RVR, pneumonia.? She required inpatient diuresis, broad-spectrum antibiotic therapy, placed on amiodarone drip.? Overall patient's clinical condition improved, she was transitioned from amiodarone drip to p.o. amiodarone, leukocytosis improved, she remains afebrile, cultures so far have been unremarkable, ambulating without significant symptomatology.? Discharged on 4 L oxygen nasal cannula.? For her atrial fibrillation, she was discharged on Eliquis 5 mg twice daily, her aspirin dose was decreased to 81 mg daily, she is on cilostazol for peripheral vascular disease, advised to monitor for bleeding. She was also found to have mediastinal lymphadenopathy seen on CT imaging supposed to follow-up with me as outpatient.? For her bilateral pleural effusions, CHF, she received inpatient diuresis, creatinine on discharge 1.0, discharged on Lasix as needed, She followed up with cardiology postdischarge on 11/19/2022-however she ran out of her oxygen and became hypoxic and was transferred to the emergency room. She comes back to hospital on 12/16/[address] chest showed worsening right pleural effusion along with significant mediastinal/hilar lymphadenopathy. She was admitted for acute diastolic heart failure, atrial fibrillation. She underwent thoracentesis on 12/17/2022-drained 1100 cc-slight pink-lymphocyte predominant, transudative-cultures and cytology are pending Pulmonary consult requested for possible biopsies of hilar/mediastinal lymph nodes. I have seen patient at bedside today, her grandson, her daughter Tierney and granddaughter were at bedside Patient is currently on 4 L supplemental oxygen-tells me that her breathing is much better yesterday after thoracentesis but today she feels her breathing is worse again. Daughter tells me that patient was a heavy smoker for several years Review of Systems General: Reports: 10 or more systems reviewed and unremarkable except in HPI and below Medications/Allergies Home Medications Medication Instructions Recorded Confirmed Last Taken Type blood-glucose meter (Accu-Chek #1 ea 11/18/19 12/16/22 Unknown Rx Daphne Plus Meter) lancets (Accu-Chek Fastclix Lancet #200 ea 11/18/19 12/16/22 Unknown Rx Drum) calcium carbonate 500 mg calcium 500 mg PO DAILY 02/27/20 12/16/22 11/08/22 History (1,250 mg) capsule (Calci-Mix) blood-glucose meter,continuous #1 ea 05/16/21 12/16/22 Unknown Rx (Dexcom G6 Loom Fixer) blood-glucose transmitter (Dexcom #1 ea 05/16/21 12/16/22 Unknown Rx G6 Transmitter device) insulin degludec 200 unit/mL (3 See Rx Instructions .Route 09/23/21 12/16/22 12/16/22 Rx mL) subcutaneous pen (Tresiba .COMPLEX #101 mL FlexTouch U-200 insulin) blood-glucose sensor (Dexcom G6 #3 ea 10/01/21 12/16/22 Unknown Rx Sensor device) blood sugar diagnostic (Accu-Chek #200 ea 10/23/21 12/16/22 Unknown Rx Daphne Plus test strips) pen needle, diabetic 31 gauge x #200 ea 10/23/21 12/16/22 Unknown Rx 3/16 (BD Ultra-Fine Mini Pen Needle) carvedilol 12.5 mg tablet 12.5 mg PO BID #180 tabs 04/15/22 12/16/22 12/16/22 Rx cilostazol 100 mg tablet 100 mg PO BID #60 tabs 10/29/22 12/16/22 12/16/22 Rx gabapentin 100 mg capsule 200 mg PO QPM 10/29/22 12/16/22 12/15/22 History mirabegron 25 mg tablet,extended 25 mg PO DAILY 11/09/22 12/16/22 11/08/22 History release 24 hr (Myrbetriq) ujnfz-4v-srr-epa-fish oil 120 1 cap PO DAILY 11/09/22 12/16/22 11/08/22 History mg-180 mg-60 mg-1,200 mg capsuleDR (Fish Oil) rosuvastatin 20 mg tablet 20 mg PO DAILY@13 11/09/22 12/16/22 11/18/22 History insulin lispro 100 unit/mL See Rx Instructions .Route 11/12/22 12/16/22 11/19/22 Rx subcutaneous pen (Humalog KwikPen .COMPLEX #27 mL 30 units (U-100) Insulin) aspirin 81 mg tablet,delayed 81 mg PO QAM 11/19/22 12/16/22 12/16/22 History release cholecalciferol (vitamin D3) 25 25 mcg PO DAILY 11/19/22 12/16/22 Unknown History mcg (1,000 unit) capsule (Vitamin D3) furosemide 20 mg tablet (Lasix) 20 mg PO DAILY PRN Edema 11/19/22 12/16/22 11/19/22 History lisinopril 20 mg tablet 20 mg PO DAILY 11/19/22 12/16/22 Unknown History potassium chloride 8 mEq 8 meq PO QAM 11/19/22 12/16/22 12/16/22 History tablet,extended release amiodarone 200 mg tablet (Pacerone) 200 mg PO DAILY #90 tabs 12/05/22 12/16/22 Unknown Rx apixaban 5 mg tablet (Eliquis) 5 mg PO Q12H 12/16/22 12/16/22 12/16/22 History diphenoxylate-atropine 2.5 1 - 2 tab PO QID PRN Diarrhea 12/16/22 12/16/22 Unknown History mg-0.025 mg tablet Allergies Allergy/AdvReac Type Severity Reaction Status Date / Time codeine Allergy Unknown Verified 12/16/22 09:49 erythromycin base Allergy Unknown Verified 12/16/22 09:49 Current Medications Generic Name Dose Route Start Last Admin Trade Name Freq PRN Reason Stop Dose Admin Amiodarone HCl 200 mg 12/17/22 09:00 12/18/22 08:26 Amiodarone 200 Mg Tablet PO 200 mg DAILY ROBIN Administration Aspirin 81 mg 12/18/22 06:00 12/18/22 05:26 Aspirin 81 Mg Ec Tablet PO 81 mg QAM ROBIN Administration Atorvastatin Calcium 80 mg 12/16/22 17:56 12/18/22 12:49 Atorvastatin 40 Mg Tablet PO 80 mg DAILY@13 ROBIN Administration Carvedilol 12.5 mg 12/16/22 18:00 12/18/22 08:26 Carvedilol 12.5 Mg Tablet PO 12.5 mg BID ROBIN Administration Dextrose 50 ml 12/16/22 17:56 12/17/22 14:44 Dextrose 50% Syringe 50 Ml IVP 50 ml PRN PRN Administration hypoglycemia protocol Protocol Enoxaparin Sodium 90 mg 12/18/22 10:00 12/18/22 11:14 Enoxaparin 100 Mg/Ml Syringe 1 mg/kg (90 mg) 90 mg SUBCUT Administration Q12H ROBIN Gabapentin 200 mg 12/16/22 18:00 12/17/22 17:22 Gabapentin 100 Mg Capsule PO 200 mg QPM ROBIN Administration Vancomycin HCl 1,000 mg/ 250 mls @ 250 mls/hr 12/17/22 06:00 12/18/22 06:41 Sodium Chloride IV Infused Q24H ROBIN Infusion Insulin Glargine 20 unit 12/17/22 21:00 12/17/22 21:04 Insulin Glargine 100 Units/1 Ml SUBCUT 20 unit BEDTIME ROBIN Administration Insulin Human Lispro 0 unit 12/16/22 18:00 12/18/22 11:27 Insulin Lispro 100 Unit/1 Ml SUBCUT Not Given WM&BEDTIME [facility] Protocol Levofloxacin 750 mg 12/18/22 08:15 12/18/22 09:40 Levofloxacin 750 Mg Tablet PO 750 mg DAILY@0600 ROBIN Administration Protocol PFSH Acute PFSH: Medical History Acute bronchitis and bronchiolitis Acute diastolic heart failure Benign mass of parotid gland DJD (degenerative joint disease) Dyslipidemia Essential (primary) hypertension History of malignant melanoma History of nonmelanoma skin cancer Incomplete emptying of bladder Left anterior knee pain Nocturia Proteinuria PVD (peripheral vascular disease) Recurrent UTI Tuberculosis Type 2 diabetes mellitus, with long-term current use of insulin Urgency incontinence Urinary urgency Surgical History H/O breast biopsy H/O section H/O: hysterectomy History of surgery on lower extremity History of tonsillectomy Family History Mother , at age 93 Diabetes CAD (coronary artery disease) Brother Leukemia Cancer Diabetes Family/Other Cancer Diabetes Daughter Chronic kidney disease (CKD) Cancer Father , at age 83 Stroke Grandmother Cancer Denies family history of Clotting disorder Dementia Suicide Anesthesia complication Bleeding disorder Lung disease Social History Smoking and tobacco status: former smoker Alcohol intake: current Alcohol intake frequency: holidays/special occasions only Substance/Drug Use: never Adopted: No Caregiver/support person: No Household members: family Marital status: Current occupational status: retired Vitals/I&O/Wt Last Vital Signs Temp 97.8 F 12/18/22 11:13 Pulse 83 12/18/22 11:13 Resp 17 12/18/22 11:13 BP 103/57 12/18/22 11:13 Pulse Ox 92 12/18/22 11:13 O2 Del Method Nasal Cannula 12/18/22 11:13 O2 Flow Rate 4 12/17/22 15:40 12/17/22 12/18/22 12/18/22 22:59 06:59 14:59 Intake Total 120 / 370 250 / 620 480 / 480 Balance 120 / 370 250 / 620 480 / 480 Laboratory Results WBC 14.52 10^3/uL (3.29-11.43) H 12/18/22 04:30 RBC 5.14 10^6/uL (3.85-5.65) 12/18/22 04:30 Hgb 15.20 g/dL (11.27-16.99) 12/18/22 04:30 Hct 47.6 % (36-47) H 12/18/22 04:30 MCV 92.6 fl (85-98) 12/18/22 04:30 MCH 29.6 pg (27-33) 12/18/22 04:30 MCHC 31.9 g/dL (30-55) 12/18/22 04:30 RDW 15.0 % (12.1-15.1) 12/18/22 04:30 Plt Count 222 10^3/cmm (157-399) 12/18/22 04:30 MPV 11.4 fL (7.4-10.4) H 12/18/22 04:30 Neut % (Auto) 87.6 % 12/18/22 04:30 Lymph % (Auto) 3.9 % 12/18/22 04:30 [place] % (Auto) 7.6 % 12/18/22 04:30 Eos % (Auto) 0.1 % 12/18/22 04:30 Baso % (Auto) 0.1 % 12/18/22 04:30 Neut # (Auto) 12.73 10^3/uL (1.8-7.7) H 12/18/22 04:30 Lymph # (Auto) 0.6 10^3/uL (0.8-4.8) L 12/18/22 04:30 [place] # (Auto) 1.1 10^3/uL (0.2-0.9) H 12/18/22 04:30 Eos # (Auto) 0.0 10^3/uL (0.0-0.8) 12/18/22 04:30 Baso # (Auto) 0.0 10^3/uL (0.0-0.1) 12/18/22 04:30 Nucleated RBC % (auto) 0 % 12/18/22 04:30 Nucleated RBCs # 0.0 /100WBC 12/18/22 04:30 Differential Comment Yes 12/17/22 15:38 PT 14.70 SECONDS (12.1-14.9) 12/16/22 09:26 INR 1.11 (0.8-1.2) 12/16/22 09:26 Specimen Type Arterial 12/16/22 09:54 Sample Site Radial, left 12/16/22 09:54 ABG pH 7.48 (7.35-7.45) H 12/16/22 09:54 ABG pCO2 43.3 mmHg (35-45) 12/16/22 09:54 ABG pO2 63.2 mmHg (80.0-100.0) L 12/16/22 09:54 ABG HCO3 32.0 mmol/L (22-26) H 12/16/22 09:54 ABG Base Excess 7.5 mmol/L (-2.0-2.0) H 12/16/22 09:54 Hansel Test Pos 12/16/22 09:54 Hematocrit 44.3 % (37-47) 12/16/22 09:54 Hgb O2 Saturation 92.8 % (95-100) L 12/16/22 09:54 Carboxyhemoglobin 1.0 %THgb (0.4-20.1) 12/16/22 09:54 Methemoglobin 0.3 % (0.4-1.5) L 12/16/22 09:54 Total Hemoglobin 14.5 g/dL (12-16) 12/16/22 09:54 O2 Delivery Device Nc 12/16/22 09:54 O2 Liters/Min 4.0 % 12/16/22 09:54 FiO2 36.0 % 12/16/22 09:54 Pen Maker ID Cak 12/16/22 09:54 Sodium 144 mmol/L (136-145) 12/18/22 04:30 Potassium 3.1 mmol/L (3.5-5.1) L 12/18/22 04:30 Chloride 104 mmol/L (98-107) 12/18/22 04:30 Carbon Dioxide 29 mmol/L (22-29) 12/18/22 04:30 Anion Gap 14.1 (5-19) 12/18/22 04:30 BUN 19 mg/dL (8-23) 12/18/22 04:30 Creatinine 1.1 mg/dL (0.5-0.9) H 12/18/22 04:30 GFR Calculation Not Reportable 12/18/22 04:30 Glucose 166 mg/dL (65-115) H 12/18/22 04:30 POC Glucose 159 mg/dL (70-110) H 12/18/22 11:10 Calculated Osmolality 304 mOsm/kg (285-295) H 12/18/22 04:30 Calcium 8.2 mg/dL (8.5-10.5) L 12/18/22 04:30 Magnesium 1.8 mg/dL (1.7-2.3) 12/18/22 04:30 Total Bilirubin 0.5 mg/dL (0.15-1.2) 12/18/22 04:30 AST 41 U/L (0-32) H 12/18/22 04:30 ALT 63 U/L (0-33) H 12/18/22 04:30 Alkaline Phosphatase 59 U/L (35-105) 12/18/22 04:30 NT-Pro-B Natriuret Pep 681 pg/mL (0-450) H 12/16/22 09:26 Total Protein 5.2 g/dL (6.6-8.7) L 12/18/22 04:30 Albumin 3.3 g/dL (3.5-5.2) L 12/18/22 04:30 Globulin 1.9 g/dL (1.3-4.6) 12/18/22 04:30 Urine Color Straw (Yellow) 12/16/22 12:20 Urine Appearance Clear (CLEAR) 12/16/22 12:20 Urine pH 6 (5-7) 12/16/22 12:20 Ur Specific [place] 1.010 (1.005-1.030) 12/16/22 12:20 Urine Protein 1+ (Negative) H 12/16/22 12:20 Urine Glucose (UA) Norm (Normal) 12/16/22 12:20 Urine Ketones Negative (Negative) 12/16/22 12:20 Urine Blood Neg (Negative) 12/16/22 12:20 Urine Nitrate Negative (Negative) 12/16/22 12:20 Urine Bilirubin Neg (Negative) 12/16/22 12:20 Urine Urobilinogen Norm mg/dL (Negative) 12/16/22 12:20 Ur Leukocyte Esterase Negative (Negative) 12/16/22 12:20 Urine RBC 0-4 /hpf (0-2) H 12/16/22 12:20 Urine WBC 0-4 /hpf (0-5) H 12/16/22 12:20 Ur Squamous Epith Cells 0-4 /hpf (0-5) H 12/16/22 12:20 Amorphous Sediment Not Reportable 12/16/22 12:20 Urine Bacteria Trace /hpf (NONE) 12/16/22 12:20 Hyaline Casts 0-4 /lpf H 12/16/22 12:20 Urine Mucus Trace /hpf 12/16/22 12:20 Fluid Color Slight pink 12/17/22 15:38 Fluid Appearance Cloudy 12/17/22 15:38 Fluid WBC 450 /uL 12/17/22 15:38 Fluid RBC 13.000 10^3/uL 12/17/22 15:38 Fluid Hematocrit 0.1 % 12/17/22 15:38 Fld Polynuclear WBCs # 0.008 12/17/22 15:38 Fld Polynuclear WBCs % 1.700 % 12/17/22 15:38 Fl Mononucl WBCs #(Auto) 0.442 12/17/22 15:38 Fl Mononuclear % Auto 98.300 % 12/17/22 15:38 Fld Crystal Laterality See comment 12/17/22 15:38 Fluid Albumin 1.2 g/dL 12/17/22 15:38 Fluid Creatinine 1.08 (0.5-0.9) H 12/17/22 15:38 Pleural pH 6.50 (6.5-7.5) 12/17/22 15:38 Pleural Total Protein 1.8 g/dL 12/17/22 15:38 Pleural LDH 111 U/L 12/17/22 15:38 Pleural Glucose 98.0 mg/dL 12/17/22 15:38 Pleural Amylase 43.0 U/L 12/17/22 15:38 Pleural Triglycerides 9 mg/dL 12/17/22 15:38 C. difficile Tox (PCR) Cancelled 12/17/22 12:20 SARS-CoV-2 Ag (Rapid) negative (Negative) 12/16/22 10:09 Physical Exam 2 Narrative: General: alert, NAD HEENT: conj clear, EOMI, PERRL, mmm, Neck: supple, no meningismus Heme: no cervical LAP Respiratory: Inspection: No visible deformity of the chest wall Palpation: Trachea is mildly deviated to the right, bilateral symmetric ex pansion Percussion: Bilateral tympanic percussion note both anterior and posteriorly Auscultation: Bilateral clear to auscultation both anterior and posteriorly, no crackles wheezing or rhonchi Cardiovascular: rrr, nl s1s2, no mrg Abdomen: soft, nt, nd, no r/g, bs+ Extremities: pulses +, no edema, no c/c : no CVA tenderness Skin: intact, no rash MSK: no back or neck pain Neurologic: grossly intact Data 12/18/22 04:30 12/18/22 04:30 Micro: Microbiology 12/17/22 06:27 Blood Culture - Preliminary Blood NEGATIVE TO DATE 12/17/22 06:25 Blood Culture - Preliminary Blood NEGATIVE TO DATE 12/17/22 15:38 Gram Stain - Final Pleural Fluid 12/16/22 11:07 Blood Culture - Preliminary Blood NEGATIVE TO DATE A&P Assessment and plan (1) Mediastinal lymphadenopathy: CT chest 12/16/2022: Show enhancing bulky mediastinal, parabronchial, subcarinal and RIGHT hilar lymphadenopathy significantly progressed compared to previous. Findings suspicious for neoplasm. Lymphoma and collagen vascular disease are additional considerations. She also had moderate right pleural effusion with compressive atelectasis-for which she underwent right-sided thoracentesis and drained 1100 cc fluid-fluid is lymphocyte predominant Transudative in nature cytology is pending - if inconclusive-I will plan for endobronchial ultrasound-guided biopsies of lymph nodes Patient is on Eliquis for atrial fibrillation-we may have to stop 2 days prior to procedure if we are planning to do biopsies (2) Acute diastolic heart failure: Patient is currently on Lasix 40 Mg twice daily (3) Pleural effusion: Right-sided pleural effusion - she underwent right-sided thoracentesis and drained 1100 cc fluid-fluid is lymphocyte predominant Transudative in nature Cytology and cultures are pending (4) COPD (chronic obstructive pulmonary disease): She has extensive history of smoking She is on 4 L supplemental oxygen-currently being treated with levofloxacin for suspected postobstructive pneumonia she needs PFTs as outpatient Currently she is on DuoNeb every 6 hour nebulization We can discharge her with Trelegy 1 daily inhaler Plan Patient will follow-up with me as outpatient to follow-up on cytology results and to decide on endobronchial ultrasound biopsies Consult Attestations Medical Necessity Statement: Deferred to hospitalist Time Spent in Patient Care: Greater than 35 minutes (>than 50% of time spent in counselling and/or direct pt care on unit) . Coding Level of Care Code 12589 Diagnoses Mediastinal lymphadenopathy R59.0 Acute diastolic heart failure I50.31 Pleural effusion J90 COPD (chronic obstructive pulmonary disease) J44.9 Time Spent (min) 58
[2022-12-18] MEDS: ipratropium-albuterol 3 mL Neb INHALATION ×2 (15:10→20:04)
[2022-12-18] MEDS: gabapentin 100 mg Capsule 200 MG PO (17:14)
[2022-12-18] MEDS: budesonide 0.5 mg/2 mL Neb INHALATION (20:04)
[2022-12-18 21:24] LABS: Glucose Point of Care 139 mg/dL (70-110)
[2022-12-19] VITALS (10 sets, daily range): BP systolic 118–134; BP diastolic 58–67; PULSE 61–89; RESP 16–18; TEMP 36.6–37; O2SAT 90–94
[2022-12-19] MEDS: ipratropium-albuterol 3 mL Neb INHALATION ×3 (01:42→13:40)
[2022-12-19 03:07] LABS: Glucose Point of Care 131 mg/dL (70-110)
[2022-12-19 05:04] LABS: Basophils % 0.1 %; Hematocrit 46.4 % (36-47); Lymphocytes # 0.4 10^3/uL (0.8-4.8); Lymphocytes % 4.3 %; Mean Corpuscular HGB Conc 32.3 g/dL (30-55); Mean Corpuscular Hemoglobin 29.6 pg (27-33); Mean Corpuscular Volume 91.7 fl (85-98); Mean Platelet Volume 11.1 fL (7.4-10.4); Monocytes # 0.6 10^3/uL (0.2-0.9); Monocytes % 5.5 %; Neutrophils # 9.12 10^3/uL (1.8-7.7); Neutrophils % 89.7 %; Nucleated Red Blood Cells % 0 %; Platelet Count 186 10^3/cmm (157-399); Red Blood Count 5.06 10^6/uL (3.85-5.65); Red Cell Distribution Width 15.1 % (12.1-15.1); White Blood Count 10.17 10^3/uL (3.29-11.43)
[2022-12-19 05:21] LABS: Blood Urea Nitrogen 15 mg/dL (8-23); Calcium 7.6 mg/dL (8.5-10.5); Carbon Dioxide 33 mmol/L (22-29); Chloride 101 mmol/L (98-107); Glucose 64 mg/dL (65-115); Magnesium 1.6 mg/dL (1.7-2.3); Osmolality Calculated 293 mOsm/kg (285-295); Sodium 142 mmol/L (136-145)
[2022-12-19 05:25] LABS: Anion Gap 10.9 (5-19)
[2022-12-19 05:26] LABS: Potassium 2.9 mmol/L (3.5-5.1)
[2022-12-19 05:31] LABS: Vancomycin Trough 6.5 ug/mL (10-15)
[2022-12-19] MEDS: levoFLOXacin 750 mg Tablet PO (06:18)
[2022-12-19] MEDS: aspirin 81 mg EC Tablet PO (06:18)
[2022-12-19 06:38] LABS: Glucose Point of Care 58 mg/dL (70-110)
[2022-12-19] MEDS: dextrose 50% syringe 50 mL 25 ML IVP (06:52)
[2022-12-19] MEDS: FUROsemide 10 mg/mL SDV 4mL 40 MG IVP (06:53)
[2022-12-19] MEDS: dextrose 5 % 500 ML 50 ML IV (06:55)
[2022-12-19] MEDS: budesonide 0.5 mg/2 mL Neb INHALATION (07:42)
--- NOTE | 2022-12-19 08:08 | PC.NURSE ---
Dr Coker in d/c'ed D5W, client is not NPO, stop vancomycine as well. see orders
[2022-12-19 08:19] LABS: Glucose Point of Care 104 mg/dL (70-110)
[2022-12-19] MEDS: potassium chloride ER 20 mEq Tablet 40 MEQ PO ×2 (08:27→13:38)
[2022-12-19] MEDS: magnesium sulfate premix 2 GM/50 ML PIGGYBACK IV (08:28)
[2022-12-19] MEDS: lidocaine 1% 5 ML in potassium chloride premix 100 ML 26.25 ML IV (09:50)
[2022-12-19] MEDS: amiodarone 200 mg Tablet PO (09:55)
[2022-12-19] MEDS: enoxaparin 100 mg/mL Syringe 90 MG SUBCUT (09:56)
[2022-12-19] MEDS: carvedilol 12.5 mg Tablet PO (09:56)
[2022-12-19] MEDS: lisinopril 10 mg Tablet PO (09:56)
--- NOTE | 2022-12-19 09:57 | P.DS_ITS ---
Discharge Providers Date of Admission: 12/16/22 17:56 Date of Discharge: December 19, 2022 Attending Provider at Admission: Jean Coker MD Attending Provider at Discharge: Jean Coker MD Primary Care Provider: Kalyan Mejia MD Diagnoses at Discharge Discharge Diagnosis (1) Mediastinal lymphadenopathy: Status: Acute (2) Acute diastolic heart failure: Status: Acute (3) Pleural effusion: Status: Acute (4) COPD (chronic obstructive pulmonary disease): Status: Acute Reason for Visit Reason for Visit: Resp Distress Hospital Course Hospital Course Janey is an 82-year-old white female who presented to the hospital short of breath. She had recently been hospitalized with A-fib with RVR. On this admis hilton, a significant right pleural effusion was noted. There was concerns of acute diastolic heart failure. She had had a recent echocardiogram with preserved EF. She was diuresed with IV Lasix, and the following day a right- sided thoracentesis was done. A CT scan was done prior to this demonstrating bulky lymphadenopathy, lymphoma or other malignancy not ruled out. Thoracentesis yielded transudate. Pathology currently pending. With this her shortness of breath improved somewhat. One of her blood cultures out of 4 was positive, and she was started on vancomycin while in the hospital. This appears to be growing bacillus organism likely contaminant. She was also placed on Levaquin p.o. secondary to concern of possible postobstructive pneumonia from significant enlargement of lymph nodes. Pulmonary evaluated her, and will continue to follow and likely set up bronchoscopy as an outpatient should her thoracentesis not yield pathology for diagnosis. By December 19 she was stable to go home. She was still requiring 4 L of oxygen. Adjustments in her diuretics were made. She will follow-up with her primary care provider in 3 to 5 days with a BMP. Pulmonary is going to be arranging follow-up based upon the results in the next week. Patient and family were given an opportunity ask questions, and agreed with the plan. Discharge Data Studies Completed and Pending Completed Studies During Hospitalization Category Date Time Status CT chest w con* [id number] Stat Cat Scan 12/16/22 11:23 Completed CXRP [XR chest 1V portable [id number]] Stat Exams 12/17/22 15:32 Completed XR chest 1V portable [id number] Routine Exams 12/18/22 07:00 Completed XR chest 1V portable [id number] Stat Exams 12/16/22 09:50 Completed US thoracentesis [id number] Routine Ultrasound 12/17/22 10:00 Completed US venous duplex lower extremity LT [CV venous duplex Ultrasound 12/16/22 09:53 [place] [id number]] Stat Pending at discharge Category Date Time Status BMP [Basic Metabolic Panel] Timed Lab 12/19/22 12:30 Ordered Blood Culture Stat Lab 12/16/22 11:14 Results Blood Culture Stat Lab 12/17/22 06:27 Results Body Fluid Culture & GS Routine Lab 12/16/22 11:53 Results Clostridium Diffi Toxin Reflex Routine Lab 12/17/22 12:20 Received Mycobacteria, Culture w/Fluor Routine Lab 12/16/22 11:53 Received Laboratory Results WBC 10.17 10^3/uL (3.29-11.43) 12/19/22 04:45 RBC 5.06 10^6/uL (3.85-5.65) 12/19/22 04:45 Hgb 15.00 g/dL (11.27-16.99) 12/19/22 04:45 Hct 46.4 % (36-47) 12/19/22 04:45 MCV 91.7 fl (85-98) 12/19/22 04:45 MCH 29.6 pg (27-33) 12/19/22 04:45 MCHC 32.3 g/dL (30-55) 12/19/22 04:45 RDW 15.1 % (12.1-15.1) 12/19/22 04:45 Plt Count 186 10^3/cmm (157-399) 12/19/22 04:45 MPV 11.1 fL (7.4-10.4) H 12/19/22 04:45 Neut % (Auto) 89.7 % 12/19/22 04:45 Lymph % (Auto) 4.3 % 12/19/22 04:45 [place] % (Auto) 5.5 % 12/19/22 04:45 Eos % (Auto) 0.0 % 12/19/22 04:45 Baso % (Auto) 0.1 % 12/19/22 04:45 Neut # (Auto) 9.12 10^3/uL (1.8-7.7) H 12/19/22 04:45 Lymph # (Auto) 0.4 10^3/uL (0.8-4.8) L 12/19/22 04:45 [place] # (Auto) 0.6 10^3/uL (0.2-0.9) 12/19/22 04:45 Eos # (Auto) 0.0 10^3/uL (0.0-0.8) 12/19/22 04:45 Baso # (Auto) 0.0 10^3/uL (0.0-0.1) 12/19/22 04:45 Nucleated RBC % (auto) 0 % 12/19/22 04:45 Nucleated RBCs # 0.0 /100WBC 12/19/22 04:45 Differential Comment Yes 12/17/22 15:38 PT 14.70 SECONDS (12.1-14.9) 12/16/22 09:26 INR 1.11 (0.8-1.2) 12/16/22 09:26 Specimen Type Arterial 12/16/22 09:54 Sample Site Radial, left 12/16/22 09:54 ABG pH 7.48 (7.35-7.45) H 12/16/22 09:54 ABG pCO2 43.3 mmHg (35-45) 12/16/22 09:54 ABG pO2 63.2 mmHg (80.0-100.0) L 12/16/22 09:54 ABG HCO3 32.0 mmol/L (22-26) H 12/16/22 09:54 ABG Base Excess 7.5 mmol/L (-2.0-2.0) H 12/16/22 09:54 Hansel Test Pos 12/16/22 09:54 Hematocrit 44.3 % (37-47) 12/16/22 09:54 Hgb O2 Saturation 92.8 % (95-100) L 12/16/22 09:54 Carboxyhemoglobin 1.0 %THgb (0.4-20.1) 12/16/22 09:54 Methemoglobin 0.3 % (0.4-1.5) L 12/16/22 09:54 Total Hemoglobin 14.5 g/dL (12-16) 12/16/22 09:54 O2 Delivery Device Nc 12/16/22 09:54 O2 Liters/Min 4.0 % 12/16/22 09:54 FiO2 36.0 % 12/16/22 09:54 Global Account Director ID Cak 12/16/22 09:54 Sodium 142 mmol/L (136-145) 12/19/22 04:45 Potassium 2.9 mmol/L (3.5-5.1) L 12/19/22 04:45 Chloride 101 mmol/L (98-107) 12/19/22 04:45 Carbon Dioxide 33 mmol/L (22-29) H 12/19/22 04:45 Anion Gap 10.9 (5-19) 12/19/22 04:45 BUN 15 mg/dL (8-23) 12/19/22 04:45 Creatinine 1.0 mg/dL (0.5-0.9) H 12/19/22 04:45 GFR Calculation Not Reportable 12/19/22 04:45 Glucose 64 mg/dL (65-115) L 12/19/22 04:45 POC Glucose 104 mg/dL (70-110) 12/19/22 08:16 Calculated Osmolality 293 mOsm/kg (285-295) 12/19/22 04:45 Calcium 7.6 mg/dL (8.5-10.5) L 12/19/22 04:45 Magnesium 1.6 mg/dL (1.7-2.3) L 12/19/22 04:45 Total Bilirubin 0.5 mg/dL (0.15-1.2) 12/18/22 04:30 AST 41 U/L (0-32) H 12/18/22 04:30 ALT 63 U/L (0-33) H 12/18/22 04:30 Alkaline Phosphatase 59 U/L (35-105) 12/18/22 04:30 NT-Pro-B Natriuret Pep 681 pg/mL (0-450) H 12/16/22 09:26 Total Protein 5.2 g/dL (6.6-8.7) L 12/18/22 04:30 Albumin 3.3 g/dL (3.5-5.2) L 12/18/22 04:30 Globulin 1.9 g/dL (1.3-4.6) 12/18/22 04:30 Urine Color Straw (Yellow) 12/16/22 12:20 Urine Appearance Clear (CLEAR) 12/16/22 12:20 Urine pH 6 (5-7) 12/16/22 12:20 Ur Specific [place] 1.010 (1.005-1.030) 12/16/22 12:20 Urine Protein 1+ (Negative) H 12/16/22 12:20 Urine Glucose (UA) Norm (Normal) 12/16/22 12:20 Urine Ketones Negative (Negative) 12/16/22 12:20 Urine Blood Neg (Negative) 12/16/22 12:20 Urine Nitrate Negative (Negative) 12/16/22 12:20 Urine Bilirubin Neg (Negative) 12/16/22 12:20 Urine Urobilinogen Norm mg/dL (Negative) 12/16/22 12:20 Ur Leukocyte Esterase Negative (Negative) 12/16/22 12:20 Urine RBC 0-4 /hpf (0-2) H 12/16/22 12:20 Urine WBC 0-4 /hpf (0-5) H 12/16/22 12:20 Ur Squamous Epith Cells 0-4 /hpf (0-5) H 12/16/22 12:20 Amorphous Sediment Not Reportable 12/16/22 12:20 Urine Bacteria Trace /hpf (NONE) 12/16/22 12:20 Hyaline Casts 0-4 /lpf H 12/16/22 12:20 Urine Mucus Trace /hpf 12/16/22 12:20 Fluid Color Slight pink 12/17/22 15:38 Fluid Appearance Cloudy 12/17/22 15:38 Fluid WBC 450 /uL 12/17/22 15:38 Fluid RBC 13.000 10^3/uL 12/17/22 15:38 Fluid Hematocrit 0.1 % 12/17/22 15:38 Fld Polynuclear WBCs # 0.008 12/17/22 15:38 Fld Polynuclear WBCs % 1.700 % 12/17/22 15:38 Fl Mononucl WBCs #(Auto) 0.442 12/17/22 15:38 Fl Mononuclear % Auto 98.300 % 12/17/22 15:38 Fld Crystal Laterality See comment 12/17/22 15:38 Fluid Albumin 1.2 g/dL 12/17/22 15:38 Fluid Creatinine 1.08 (0.5-0.9) H 12/17/22 15:38 Pleural pH 6.50 (6.5-7.5) 12/17/22 15:38 Pleural Total Protein 1.8 g/dL 12/17/22 15:38 Pleural LDH 111 U/L 12/17/22 15:38 Pleural Glucose 98.0 mg/dL 12/17/22 15:38 Pleural Amylase 43.0 U/L 12/17/22 15:38 Pleural Triglycerides 9 mg/dL 12/17/22 15:38 Vancomycin Trough 6.5 ug/mL (10-15) L 12/19/22 04:45 C. difficile Tox (PCR) Cancelled 12/17/22 12:20 SARS-CoV-2 Ag (Rapid) negative (Negative) 12/16/22 10:09 Vitals Last Vital Signs Temp 97.8 F 12/19/22 07:41 Pulse 61 12/19/22 07:44 Resp 16 12/19/22 07:44 BP 130/67 12/19/22 07:41 Pulse Ox 92 12/19/22 07:44 O2 Del Method Nasal Cannula 12/19/22 07:44 O2 Flow Rate 4 12/19/22 08:00 Discharge Plan Discharge Patient Disposition: Home Health Service Condition: Stable Prescriptions: New levofloxacin 750 mg Tablet 750 mg PO DAILY@0600 Qty: 5 0RF lisinopril 10 mg Tablet 10 mg PO DAILY Qty: 30 0RF Trelegy Ellipta 200-62.5-25 mcg blister with device 1 inh inhalation DAILY Qty: 60 0RF furosemide [Lasix] 40 mg tablet 60 mg PO DAILY Qty: 45 0RF potassium chloride 20 mEq tablet,ER particles/crystals 20 meq PO BID Qty: 60 0RF Continued Calci-Mix 500 mg calcium (1,250 mg) capsule 500 mg PO DAILY (DME) Dexcom G6 Youth Services Specialist Misc See Rx Instructions .Route Qty: 1 0RF Rx Instructions: Check BS 4 times a day. (DME) Dexcom G6 Transmitter Device See Rx Instructions .Route Qty: 1 3RF Rx Instructions: Change every 90 days. gabapentin 100 mg capsule 200 mg PO QPM cilostazol 100 mg tablet 100 mg PO BID Qty: 60 5RF (DME) blood-glucose meter [Accu-Chek Daphne Plus Meter] Misc See Rx Instructions .ROUTE .MEDSUPPLY Qty: 1 0RF Rx Instructions: four times daily (DME) lancets [Accu-Chek Fastclix Lancet Drum] [facility] [place] See Rx Instructions .ROUTE .MEDSUPPLY Qty: 200 2RF Rx Instructions: four times daily Tresiba FlexTouch U-200 200 unit/mL (3 mL) insulin pen See Rx Instructions .ROUTE .COMPLEX Qty: 101 1RF Dose Instruction: INJECT 72 UNITS EVERY MORNING AND 64 UNITS EVERY EVENING Rx Instructions: INJECT 72 UNITS EVERY MORNING AND 60 UNITS EVERY EVENING (DME) Dexcom G6 Sensor Device See Rx Instructions .Route Qty: 3 3RF Rx Instructions: Change every 10 days. (DME) Accu-Chek Daphne Plus test strp Strip See Rx Instructions .ROUTE .MEDSUPPLY Qty: 200 11RF Rx Instructions: four times daily (DME) pen needle, diabetic [BD Ultra-Fine Mini Pen Needle] 31 gauge x 3/16 needle See Rx Instructions .ROUTE .MEDSUPPLY Qty: 200 2RF Rx Instructions: 4 NEEDLES DAILY carvedilol 12.5 mg tablet 12.5 mg PO BID Qty: 180 3RF Rx Instructions: must administer with a meal/food Pacerone 200 mg tablet 200 mg PO DAILY Qty: 90 0RF rosuvastatin 20 mg tablet 20 mg PO DAILY@13 Myrbetriq 25 mg tablet extended release 24 hr 25 mg PO DAILY Fish Oil 120 mg-180 mg- 60 mg-1,200 mg Capsule,Delayed Release(Dr/Ec) 1 cap PO DAILY insulin lispro [Humalog KwikPen Insulin] 100 unit/mL insulin pen See Rx Instructions .ROUTE .COMPLEX Qty: 27 3RF Dose Instruction: INJECT 30 UNITS SUBCUTANEOUSLY THREE TIMES DAILY Rx Instructions: INJECT, subcut, three times daily, after meals, based on sliding scale as needed diphenoxylate-atropine 2.5-0.025 mg tablet 1 - 2 tab PO QID PRN (Reason: Diarrhea) Eliquis 5 mg tablet 5 mg PO Q12H cholecalciferol (vitamin D3) [Vitamin D3] 25 mcg (1,000 unit) Capsule 25 mcg PO DAILY aspirin 81 mg tablet,delayed release (DR/EC) 81 mg PO QAM Discontinued potassium chloride 8 mEq tablet extended release 8 meq PO QAM furosemide [Lasix] 20 mg tablet 20 mg PO DAILY PRN (Reason: Edema) lisinopril 20 mg tablet 20 mg PO DAILY Discharge Orders: Discharge Order (Routine); Ordered 12/19/22 Ordered By: Jean Coker Other Ambulatory Orders: DME: [employer] (Order) Location: None Selected Ordered By: Jean Coker Referrals: Kalyan Mejia MD [Primary Care Provider] - 4-7 days (BMP on follow-up) Discharge Diet: Cardiac and Diabetic Discharge Activity: Increase activity as tolerated Patient Instructions: Opioid Safety Activity Restrictions/Additional Instructions: Continue 4 L of oxygen per nasal cannula. Take all medicine as prescribed. On follow-up with your primary care provider, a BMP should be obtained to check your potassium and kidney function Dr. Rey will be calling you and following up on possible procedure for lymph node biopsy. Discharge Attestations Time Spent in Discharge Care*: greater than 30 min Quality Metrics Clinical Quality Measures [ No reported AMI, CVA or VTE this stay] Coding Level of Care Code 12319 Total time (in minutes) for Discharge: 39 Diagnoses Mediastinal lymphadenopathy R59.0 Acute diastolic heart failure I50.31 Pleural effusion J90 COPD (chronic obstructive pulmonary disease) J44.9
[2022-12-19 10:24] LABS: Glucose Point of Care 193 mg/dL (70-110)
--- NOTE | 2022-12-19 10:53 | PC.NURSE ---
pt to finish k-rider, have labs redrawn, then physician to review results prior to dc
[2022-12-19 11:48] LABS: Glucose Point of Care 147 mg/dL (70-110)
[2022-12-19] MEDS: insulin lispro 100 unit/1 mL SUBCUT (12:06)
--- NOTE | 2022-12-19 12:19 | PC.SOCIAL ---
IMM Update pg 2 of IMM updated and reviewed w/ patient. Copy provided and copy dated, initialed and placed in chart.
[2022-12-19] MEDS: atorvastatin 40 mg Tablet 80 MG PO (12:24)
[2022-12-19 12:43] LABS: Anion Gap 12.4 (5-19); Blood Urea Nitrogen 17 mg/dL (8-23); Calcium 7.4 mg/dL (8.5-10.5); Carbon Dioxide 32 mmol/L (22-29); Chloride 96 mmol/L (98-107); Glucose 184 mg/dL (65-115); Osmolality Calculated 290 mOsm/kg (285-295); Potassium 3.4 mmol/L (3.5-5.1); Sodium 137 mmol/L (136-145)
== END 2022-12-19 15:30 | disposition home health service (06) | DRG 291 ==
LOC: ER 13:57 → MEDSURG 17:21
PROVIDERS: Student in an Organized Health Care Education/Training Program; Admitting Provider Internal Medicine; Emergency Provider Emergency Medicine; PCP Family Medicine; Visit Provider Internal Medicine
DX: I13.0 Hypertensive heart and chronic kidney disease with heart failure and stage 1 through stage 4 chronic kidney disease, or unspecified chronic kidney disease (principal); I50.33 Acute on chronic diastolic (congestive) heart failure; J18.9 Pneumonia, unspecified organism; J96.01 Acute respiratory failure with hypoxia; J90 Pleural effusion, not elsewhere classified; N18.30 Chronic kidney disease, stage 3 unspecified; E11.22 Type 2 diabetes mellitus with diabetic chronic kidney disease; I48.91 Unspecified atrial fibrillation; Z79.4 Long term (current) use of insulin; Z79.01 Long term (current) use of anticoagulants; Z79.82 Long term (current) use of aspirin; R59.0 Localized enlarged lymph nodes; E78.5 Hyperlipidemia, unspecified; Z85.820 Personal history of malignant melanoma of skin; E11.51 Type 2 diabetes mellitus with diabetic peripheral angiopathy without gangrene; Z87.440 Personal history of urinary (tract) infections; Z87.891 Personal history of nicotine dependence; R74.01 Elevation of levels of liver transaminase levels; E87.70 Fluid overload, unspecified; R19.7 Diarrhea, unspecified; E87.6 Hypokalemia; B96.89 Other specified bacterial agents as the cause of diseases classified elsewhere
CPT/HCPCS: 32555; 36415; 36416; 36600; 71045; 71260; 80048; 80053; 80202; 80503; 81001; 82042; 82150; 82570; 82805; 82945; 82962; 83615; 83735; 83880; 83986; 84157; 84478; 85014; 85025; 85610; 87015; 87040; 87070; 87075; 87077; 87116; 87186; 87205; 87206; 87324; 87426; 87449; 87801; 89050; 93005; 93971; 94640; 96365; 96367; 96372; 96375; 99285; J0456; J0696; J1650; J1815; J1940; J3370; J3475; J3480; J7050; J7060; J7613; J7626; Q9967

== ENCOUNTER 2022-12-26 10:18 | Inpatient (IN) | payer MEDICARE, MEDICAID, SELFPAY ==
[2022-12-26] VITALS (20 sets, daily range): BP systolic 99–134; BP diastolic 46–78; PULSE 79–156; RESP 18–45; TEMP 36.7–36.9; O2SAT 89–95; BMI 26.6
--- NOTE | 2022-12-26 10:20 | ECG_ITS ---
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 Measurements Intervals [place] Rate: 87 P: 0 MT: 0 QRS: 2 QRSD: 84 T: 64 QT: 348 QTc: 421 Interpretive Statements ATRIAL FIBRILLATION ANTEROSEPTAL MYOCARDIAL INFARCTION , OF INDETERMINATE AGE [40+ ms Q WAVE IN V1-V4] Compared to ECG 12/16/2022 09:43:13 No significant changes Electronically Signed On 12-26-2022 10:58:48 CDT by Marielena Cartwright M.D. [id number]
--- NOTE | 2022-12-26 10:20 | XR_ITS ---
WS: [id number] Portable AP upright chest, 12/26/2022 Clinical Data: dyspnea/cough Comparison: Portable chest, 12/18/2022 Findings: The right basilar opacity has reduced minimally. This may represent a combination of atelec tasis, effusion and pneumonia. The patchy opacity in the left lower lobe adjacent to the heart and oc cupying the costophrenic angle remains the same. Again this may represent a combination of atelectasi s effusion and pneumonia. The pulmonary vascular congestion in the upper lobes has diminished. The he art is enlarged. There are no nodules or masses. The aortic arch and descending thoracic aorta show a therosclerosis and tortuosity. Monitor leads are on the chest wall. Impression: 1. Partial reduction of the pulmonary opacity in right lower lobe with no change in the opacity in th e left lower lobe. 2. Decrease in pulmonary vascular congestion. 3. Atherosclerosis and cardiomegaly.
[2022-12-26 10:42] LABS: Basophils % 0.1 %; Hematocrit 42.2 % (36-47); Lymphocytes # 0.2 10^3/uL (0.8-4.8); Lymphocytes % 2.1 %; Mean Corpuscular HGB Conc 32.9 g/dL (30-55); Mean Corpuscular Hemoglobin 29.8 pg (27-33); Mean Corpuscular Volume 90.6 fl (85-98); Mean Platelet Volume 12.5 fL (7.4-10.4); Monocytes # 0.7 10^3/uL (0.2-0.9); Monocytes % 5.9 %; Neutrophils # 10.31 10^3/uL (1.8-7.7); Neutrophils % 91.3 %; Nucleated Red Blood Cells % 0 %; Platelet Count 135 10^3/cmm (157-399); Red Blood Count 4.66 10^6/uL (3.85-5.65); Red Cell Distribution Width 15.2 % (12.1-15.1)
[2022-12-26] MEDS: ipratropium-albuterol 3 mL Neb INHALATION ×3 (10:45→20:12)
[2022-12-26] MEDS: dilTIAZem 5 mg/mL SDV 5 mL 10 MG IVP (10:46)
[2022-12-26] MEDS: dilTIAZem 100 MG in sodium chloride 0.9% (add-van) 100 ML IV (10:47)
[2022-12-26] MEDS: FUROsemide 10 mg/mL SDV 4mL 40 MG IVP (11:22)
[2022-12-26 11:38] LABS: Troponin(5th) Baseline 41 ng/L (0-10)
--- NOTE | 2022-12-26 11:42 | ED_ITS ---
HPI - SOB/Dyspnea General: Chief Complaint: Shortness of Breath/Dyspnea Stated Complaint: sob, chest tightness Time Seen by Provider: 12/26/22 10:19 Source: patient Mode of arrival: ambulatory History of Present Illness: HPI Narrative: 82-year-old female presents emergency room complaining of chest discomfort and shortness of breath. When she first arrived she is in A-fib with moderate rapid ventricular response. She has a known history of A-fib with RVR. She also has problems with pleural effusions has had them drained several times in the past she is on a trilogy Ellipta which was started recently. Known history of severe COPD diabetes mellitus as well as a congestive heart failure with pleural effusion she has had thoracentesis for these and has seen Dr. Xavier in the past. She is not had any fever sweats chills she has had slight worsening of her chronic orthopnea is also had somewhat of a productive cough. No fever at home. MD elicited complaint: shortness of breath and cough Pertinent past history: COPD and congestive heart failure Onset (ago): day(s) Context: recent illness and occurred during exertion Timing: intermittent Severity: moderate Exacerbating factors: lying flat, exertion and coughing Relieving factors: oxygen, rest, bronchodilators and upright position Known history of: COPD and congestive heart failure Associated symptoms: Reports chest pain, cough and orthopnea; Deny abdominal pain, chest congestion, diaphoresis, dizziness, extremity pain, fever(s), hemoptysis, lightheadedness, myalgias, nausea, palpitations, paresthesias, polydipsia, polyuria, rash, sense of impending doom, syncope or vomiting Treatment prior to arrival: none Review of Systems Const: Denies: fever(s), chills or diaphoresis ENMT: Denies: throat pain, ear or mastoid pain, nasal discharge or nasal congestion Card: Reports: chest pain, edema, dyspnea on exertion and orthopnea; Denies: palpitations, lightheadedness or syncope Resp: Reports: dyspnea, non-productive cough and wheezing; Denies: productive cough, hemoptysis or chest congestion GI: Denies: abdominal pain, nausea or vomiting : Denies: flank pain, difficulty voiding, dysuria, urinary frequency or urinary urgency Musc: Denies: extremity pain Skin/Breast: Denies: rash or pruritus Neuro: Denies: dizziness Endo: Denies: polyuria or polydipsia PFSH ED PFSH: Medical History Acute bronchitis and bronchiolitis Acute diastolic heart failure Benign mass of parotid gland DJD (degenerative joint disease) Dyslipidemia Essential (primary) hypertension History of malignant melanoma History of nonmelanoma skin cancer Hyperlipemia, mixed Incomplete emptying of bladder Left anterior knee pain Long-term insulin use Nocturia Proteinuria PVD (peripheral vascular disease) Recurrent UTI Stage 3 chronic kidney disease due to type 2 diabetes mellitus Tuberculosis Type 2 diabetes mellitus, with long-term current use of insulin Urgency incontinence Urinary urgency Surgical History H/O breast biopsy H/O section H/O: hysterectomy History of surgery on lower extremity History of tonsillectomy Family History Mother , at age 93 Diabetes CAD (coronary artery disease) Brother Leukemia Cancer Diabetes Family/Other Cancer Diabetes Daughter Chronic kidney disease (CKD) Cancer Father , at age 83 Stroke Grandmother Cancer Denies family history of Clotting disorder Dementia Suicide Anesthesia complication Bleeding disorder Lung disease Social History Smoking and tobacco status: former smoker Alcohol intake: current Alcohol intake frequency: holidays/special occasions only Substance/Drug Use: never Adopted: No Caregiver/support person: No Household members: family Marital status: Current occupational status: retired Physical Exam Const: GENERAL APPEARANCE: cooperative and comfortable ORIENTATION/CONS CIOUSNESS: Yes awake, Yes oriented to person, Yes oriented to place and Yes oriented to time HENMT: COMMON NORMALS: normocephalic, atraumatic and hearing grossly normal bilaterally HEAD & SCALP: normocephalic and atraumatic Resp: EFFORT & INSPECTION: Yes tachypneic, Yes labored, Yes uses accessory muscles and Yes prolonged expiratory phase AUSCULTATION: crackles Laterality: bilateral, rhonchi and wheezes Cardio: COMMON NORMALS: regular rate, regular rhythm and No murmurs present (Cardio) RATE: regular rate RHYTHM: regular rhythm GI: COMMON NORMALS: Soft to palpation and No hepatosplenomegaly present AUSCULTATION: Yes normoactive bowel sounds PALPATION: Yes Soft to palpation, No Tenderness to palpation present (GI), No Guarding due to palpation present (GI) and Yes No hepatosplenomegaly present Extremity: COMMON NORMALS: normal to inspection, capillary refill normal, no clubbing, cyanosis or edema, no calf tenderness and no pedal edema Neuro: SENSORIUM/ORIENTATION: Yes oriented to person, Yes oriented to place and Yes oriented to time Skin: COMMON NORMALS: no rashes or lesions noted GENERAL SKIN EXAM: no rashes or lesions noted Course Vital Signs: Vital signs: Vital Signs Temperature 98.6 F 12/28/22 12:24 Pulse Rate 86 12/28/22 13:50 Respiratory Rate 33 H 12/28/22 13:50 Blood Pressure 113/62 12/28/22 13:50 Pulse Oximetry 91 12/28/22 12:24 Oxygen Delivery Me thod Nasal Cannula 12/28/22 12:24 Oxygen Flow Rate 4 12/28/22 12:24 MDM - SOB/Dyspnea Medical Decision Making Exacerbation COPD as well as congestive heart failure improved with treatments administered in the emergency room think she needs further evaluation. Discussed with hospitalist will admit. Patient actually is leaning towards some form of comfort care she does not want a lot of aggressive treatments at this point has been out of the hospital several times recently. We will need further potential evaluation for the mediastinal lymphadenopathy if she states she is not interested in any form of aggressive treatments. Differential Diagnosis Likely acute exacerbation of chronic obstructive airways disease and congestive heart failure Medical Records I reviewed the patient's medical records. Lab Data I reviewed the patient's lab results. 12/26/22 10:30 12/27/22 03:23 Labs/Radiology: Laboratory Results WBC 11.30 10^3/uL (3.29-11.43) 12/26/22 10:30 RBC 4.66 10^6/uL (3.85-5.65) 12/26/22 10:30 Hgb 13.90 g/dL (11.27-16.99) 12/26/22 10:30 Hct 42.2 % (36-47) 12/26/22 10:30 MCV 90.6 fl (85-98) 12/26/22 10:30 MCH 29.8 pg (27-33) 12/26/22 10:30 MCHC 32.9 g/dL (30-55) 12/26/22 10:30 RDW 15.2 % (12.1-15.1) H 12/26/22 10:30 Plt Count 135 10^3/cmm (157-399) L 12/26/22 10:30 MPV 12.5 fL (7.4-10.4) H 12/26/22 10:30 Neut % (Auto) 91.3 % 12/26/22 10:30 Lymph % (Auto) 2.1 % 12/26/22 10:30 Christian % (Auto) 5.9 % 12/26/22 10:30 Eos % (Auto) 0.0 % 12/26/22 10:30 Baso % (Auto) 0.1 % 12/26/22 10:30 Neut # (Auto) 10.31 10^3/uL (1.8-7.7) H 12/26/22 10:30 Lymph # (Auto) 0.2 10^3/uL (0.8-4.8) L 12/26/22 10:30 Christian # (Auto) 0.7 10^3/uL (0.2-0.9) 12/26/22 10:30 Eos # (Auto) 0.0 10^3/uL (0.0-0.8) 12/26/22 10:30 Baso # (Auto) 0.0 10^3/uL (0.0-0.1) 12/26/22 10:30 Nucleated RBC % (auto) 0 % 12/26/22 10:30 Nucleated RBCs # 0.0 /100WBC 12/26/22 10:30 Sodium 136 mmol/L (136-145) 12/26/22 11:00 Potassium 4.6 mmol/L (3.5-5.1) 12/26/22 11:00 Chloride 103 mmol/L (98-107) 12/26/22 11:00 Carbon Dioxide 23 mmol/L (22-29) 12/26/22 11:00 Anion Gap 14.6 (5-19) 12/26/22 11:00 BUN 40 mg/dL (8-23) H 12/26/22 11:00 Creatinine 1.4 mg/dL (0.5-0.9) H 12/26/22 11:00 GFR Calculation Not Reportable 12/26/22 11:00 Glucose 174 mg/dL (65-115) H 12/26/22 11:00 Calculated Osmolality 296 mOsm/kg (285-295) H 12/26/22 11:00 Calcium 8.4 mg/dL (8.5-10.5) L 12/26/22 11:00 Total Bilirubin 0.5 mg/dL (0.15-1.2) 12/26/22 11:00 AST 34 U/L (0-32) H 12/26/22 11:00 ALT 38 U/L (0-33) H 12/26/22 11:00 Alkaline Phosphatase 55 U/L (35-105) 12/26/22 11:00 Troponin T Baseline 41 ng/L (0-10) H 12/26/22 11:00 Troponin T 120 Minute 41.08 ng/L (0-10) H 12/26/22 12:57 Delta Troponin T 0.08 ABS# (0-10) 12/26/22 12:57 NT-Pro-B Natriuret Pep 1351 pg/mL (0-450) H 12/26/22 11:00 Total Protein 5.5 g/dL (6.6-8.7) L 12/26/22 11:00 Albumin 2.8 g/dL (3.5-5.2) L 12/26/22 11:00 Globulin 2.7 g/dL (1.3-4.6) 12/26/22 11:00 Urine Color Yellow (Yellow) 12/26/22 12:52 Urine Appearance Sl hazy (CLEAR) A 12/26/22 12:52 Urine pH 5 (5-7) 12/26/22 12:52 Ur Specific [place] 1.015 (1.005-1.030) 12/26/22 12:52 Urine Protein 1+ (Negative) H 12/26/22 12:52 Urine Glucose (UA) Norm (Normal) 12/26/22 12:52 Urine Ketones Negative (Negative) 12/26/22 12:52 Urine Blood 2+ (Negative) H 12/26/22 12:52 Urine Nitrate Negative (Negative) 12/26/22 12:52 Urine Bilirubin Neg (Negative) 12/26/22 12:52 Urine Urobilinogen Norm mg/dL (Negative) 12/26/22 12:52 Ur Leukocyte Esterase Negative (Negative) 12/26/22 12:52 Urine RBC 0-4 /hpf (0-2) H 12/26/22 12:52 Urine WBC 0-4 /hpf (0-5) H 12/26/22 12:52 Ur Squamous Epith Cells 5-10 /hpf (0-5) H 12/26/22 12:52 Amorphous Sediment Not Reportable 12/26/22 12:52 Urine Bacteria Trace /hpf (NONE) 12/26/22 12:52 Urine Yeast 1+ /hpf H 12/26/22 12:52 All radiology interpretation(s) finalized by discharge Discharge Plan Discharge Patient Disposition: Admitted As Inpatient Admit Provider: Alber Condon Clinical Impression: CHF exacerbation, Acute exacerbation of chronic obstructive airways disease Condition: Fair Discharge Diet: Regular Discharge Activity: Increase activity as tolerated Coding Level of Care Code ED Demonstrator [employer] for Jay Haynes
[2022-12-26 11:45] LABS: Alanine Aminotransferase 38 U/L (0-33); Albumin Level 2.8 g/dL (3.5-5.2); Alkaline Phosphatase 55 U/L (35-105); Blood Urea Nitrogen 40 mg/dL (8-23); Calcium 8.4 mg/dL (8.5-10.5); Carbon Dioxide 23 mmol/L (22-29); Chloride 103 mmol/L (98-107); Globulin 2.7 g/dL (1.3-4.6); Glucose 174 mg/dL (65-115); NT Pro B Type Natriuretic Pept 1351 pg/mL (0-450); Osmolality Calculated 296 mOsm/kg (285-295); Sodium 136 mmol/L (136-145); Total Bilirubin 0.5 mg/dL (0.15-1.2); Total Protein 5.5 g/dL (6.6-8.7)
[2022-12-26 11:47] LABS: Anion Gap 14.6 (5-19)
[2022-12-26 11:48] LABS: Aspartate Amino Transferase 34 U/L (0-32); Potassium 4.6 mmol/L (3.5-5.1)
--- NOTE | 2022-12-26 12:23 | ECG_ITS ---
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 Measurements Intervals [place] Rate: 102 P: 0 OK: 0 QRS: 30 QRSD: 86 T: 83 QT: 337 QTc: 439 Interpretive Statements ATRIAL FIBRILLATION WITH RAPID VENTRICULAR RESPONSE ANTEROSEPTAL MYOCARDIAL INFARCTION , OF INDETERMINATE AGE [40+ ms Q WAVE IN V1-V4] Compared to ECG 12/26/2022 10:24:11 No significant changes Electronically Signed On 12-27-2022 9:43:52 CDT by Michi Sierra M.D. [id number]
[2022-12-26] MEDS: carvedilol 6.25 mg Tablet PO (12:49)
--- NOTE | 2022-12-26 12:56 | PC.NURSE ---
PTS CARDIZEM WAS TITRATED TO [address] ARGUETA VERBAL ORDER. PT IS CONTINUED ON CARDIAC AND BP MONITORING AT THIS TIME.
[2022-12-26 13:13] LABS: Urine Appearance SL Hazy (CLEAR); Urine Color Yellow (Yellow); pH Urine 5 (5-7)
[2022-12-26 13:14] LABS: Add Urine Culture? Yes; Add Urine Microscopic? YES; Bacteria Urine TRACE /hpf; Bilirubin Urine Neg (Negative); Blood Urine 2+ (Negative); Glucose Urine UA Norm (Normal); Ketones Urine Negative (Negative); Leukocyte Esterase Urine Negative (Negative); Nitrate Urine Negative (Negative); Protein Urine 1+ (Negative); RBC Urine 0-4 /hpf (0-2); Specific Gravity, Urine 1.015 (1.005-1.030); Urobilinogen Urine Norm (Negative); WBC Urine 0-4 /hpf (0-5)
[2022-12-26 13:20] LABS: Troponin 5 2HR 41.08 ng/L (0-10)
[2022-12-26 13:25] LABS: Troponin 5 2HR Delta 0.08 ABS# (0-10)
--- NOTE | 2022-12-26 15:25 | PM.HP ---
Providers/Chief Complaint Admitting Physician: Alber Condon DO Primary Care Provider: Kalyan Mejia MD Chief Complaint: sob, chest tightness History of Present Illness Nimo Kennedy is a 82 year old female also had significant decline in her health status since November 08, 2022. She was hospitalized 11 09-11 12 for A-fib with RVR diagnosed with COPD and CHF. She came back to the ER on 823 with shortness of breath and had run out of oxygen. She has been receiving home health care services. However she returned to the hospital 12/16/2022 to 12/19/2022. During that hospitalization she was found to have a moderate size right pleural effusion and she received a thoracentesis. Those studies showed that it was a transudate. No malignant cells were seen. Negative culture. During this hospitalization a CT of the chest was done demonstrating bulky lymphadenopathy consistent with malignancy. The plan was to have a thoracentesis with biopsy on these lymph nodes. However today she again struggled with shortness of breath at rest. In the emergency room she was mildly tachycardic with A-fib. Since no other abnormalities were found she was treated with Cardizem. Bringing her heart rate down to did help alleviate her symptoms. During my visit patient complains of no further shortness of breath, she denies chest pain. She reports a few months of very watery diarrhea. She had recently been started on a chemotherapy diarrhea drug which has some effect. The patient shared concerns with me about the bronchoscopy. She states that she would not want chemotherapy or radiation if it were cancer. I asked her to discuss with her family further. We do not have to proceed with biopsy and she is at very high risk given 4 L of oxygen and CHF and other comorbidities. Review of Systems Const: Denies: fever(s) or chills Eyes: Denies: change in vision ENMT: Denies: throat pain or nasal congestion Card: Denies: chest pain or palpitations Resp: Reports: dyspnea; Denies: productive cough GI: Reports: diarrhea (profuse watery diarrhea); Denies: abdominal pain, nausea or vomiting : Denies: dysuria Musc: Denies: back pain or extremity pain Skin/Breast: Denies: rash or lesions Neuro: Denies: headache(s) or dizziness Psych: Denies: anxiety or depression Sai/Lymph: Denies: easy bruising or easy bleeding Medications/Allergies Home Medications Medication Instructions Recorded Confirmed Last Taken Type blood-glucose meter (Accu-Chek #1 ea 11/18/19 12/26/22 Unknown Rx Daphne Plus Meter) lancets (Accu-Chek Fastclix Lancet #200 ea 11/18/19 12/26/22 Unknown Rx Drum) calcium carbonate 500 mg calcium 500 mg PO DAILY 02/27/20 12/26/22 12/26/22 History (1,250 mg) capsule (Calci-Mix) blood-glucose meter,continuous #1 ea 05/16/21 12/26/22 Unknown Rx (Dexcom G6 Riprap Placer) blood-glucose transmitter (Dexcom #1 ea 05/16/21 12/26/22 Unknown Rx G6 Transmitter device) insulin degludec 200 unit/mL (3 See Rx Instructions .Route 09/23/21 12/26/22 12/25/22 Rx mL) subcutaneous pen (Tresiba .COMPLEX #101 mL FlexTouch U-200 insulin) blood-glucose sensor (Dexcom G6 #3 ea 10/01/21 12/26/22 Unknown Rx Sensor device) blood sugar diagnostic (Accu-Chek #200 ea 10/23/21 12/26/22 Unknown Rx Daphne Plus test strips) pen needle, diabetic 31 gauge x #200 ea 10/23/21 12/26/22 Unknown Rx 3/16 (BD Ultra-Fine Mini Pen Needle) carvedilol 12.5 mg tablet 12.5 mg PO BID #180 tabs 04/15/22 12/26/22 12/26/22 Rx cilostazol 100 mg tablet 100 mg PO BID #60 tabs 10/29/22 12/26/22 12/16/22 Rx gabapentin 100 mg capsule 200 mg PO QPM 10/29/22 12/26/22 12/25/22 History mirabegron 25 mg tablet,extended 25 mg PO DAILY 11/09/22 12/26/22 12/26/22 History release 24 hr (Myrbetriq) ytfaa-3t-yme-epa-fish oil 120 1 cap PO DAILY 11/09/22 12/26/22 12/26/22 History mg-180 mg-60 mg-1,200 mg capsule, DR (Fish Oil) rosuvastatin 20 mg tablet 20 mg PO DAILY@13 11/09/22 12/26/22 12/25/22 History insulin lispro 100 unit/mL See Rx Instructions .Route 11/12/22 12/26/22 12/26/22 Rx subcutaneous pen (Humalog KwikPen .COMPLEX #27 mL (U-100) Insulin) aspirin 81 mg tablet,delayed 81 mg PO QAM 11/19/22 12/26/22 12/26/22 History release cholecalciferol (vitamin D3) 25 25 mcg PO DAILY 11/19/22 12/26/22 12/26/22 History mcg (1,000 unit) capsule (Vitamin D3) amiodarone 200 mg tablet (Pacerone) 200 mg PO DAILY #90 tabs 12/05/22 12/26/22 12/26/22 Rx apixaban 5 mg tablet (Eliquis) 5 mg PO Q12H 12/16/22 12/26/22 12/16/22 History diphenoxylate-atropine 2.5 1 - 2 tab PO QID PRN Diarrhea 12/16/22 12/26/22 Unknown History mg-0.025 mg tablet fluticasone fur. 200 mcg-umeclid 1 inh inhalation DAILY #60 ea 12/19/22 12/26/22 12/26/22 Rx 62.5 mcg-vilant 25 mcg inhalat.powder (Trelegy Ellipta) furosemide 40 mg tablet (Lasix) 60 mg PO DAILY #45 tabs 12/19/22 12/26/22 12/26/22 Rx lisinopril 10 mg tablet 10 mg PO DAILY #30 tabs 12/19/22 12/26/22 12/26/22 Rx potassium chloride 20 mEq 20 meq PO BID #60 tabs 12/19/22 12/26/22 12/26/22 Rx tablet,extended release(part/cryst) amoxicillin 875 mg-potassium 1 tab PO BID #28 tabs 12/22/22 12/26/22 12/26/22 Rx clavulanate 125 mg tablet ocgfakfr-puc-vxotr ac 400 1 tab PO DAILY 12/26/22 12/26/22 12/26/22 History mcg-calcium carb 500 mg-vit K1 20 mcg tablet (Women's 50 Plus Multivitamin) Allergies Allergy/AdvReac Type Severity Reaction Status Date / Time codeine Allergy Unknown Verified 12/26/22 11:58 erythromycin base Allergy Unknown Verified 12/26/22 11:58 PFSH Acute PFSH: Medical History Acute bronchitis and bronchiolitis Acute diastolic heart failure Benign mass of parotid gland DJD (degenerative joint disease) Dyslipidemia Essential (primary) hypertension History of malignant melanoma History of nonmelanoma skin cancer Incomplete emptying of bladder Left anterior knee pain Nocturia Proteinuria PVD (peripheral vascular disease) Recurrent UTI Tuberculosis Type 2 diabetes mellitus, with long-term current use of insulin Urgency incontinence Urinary urgency Surgical History H/O breast biopsy H/O section H/O: hysterectomy History of surgery on lower extremity History of tonsillectomy Family History Mother , at age 93 Diabetes CAD (coronary artery disease) Brother Leukemia Cancer Diabetes Family/Other Cancer Diabetes Daughter Chronic kidney disease (CKD) Cancer Father , at age 83 Stroke Grandmother Cancer Denies family history of Clotting disorder Dementia Suicide Anesthesia complication Bleeding disorder Lung disease Social History Smoking and tobacco status: former smoker Alcohol intake: current Alcohol intake frequency: holidays/special occasions only Substance/Drug Use: never Adopted: No Caregiver/support person: No Household members: family Marital status: Current occupational status: retired Vitals/I&O/Wt Last Vital Signs Pulse 84 12/26/22 15:20 Resp 22 H 12/26/22 15:20 BP 127/56 12/26/22 13:06 Pulse Ox 93 12/26/22 15:20 O2 Del Method Nasal Cannula 12/26/22 15:20 O2 Flow Rate 4 12/26/22 15:20 12/26/22 12/26/22 12/26/22 06:59 14:59 22:59 Intake Total 10.667 / 10.667 Balance 10.667 / 10.667 Weight last 48 hrs Weight 81.647 kg Physical Exam Narrative: Elderly white female in no acute distress. She appears well-nourished and well-hydrated. Neurologic: Alert and oriented x3. Cranial nerves II through XII are grossly intact. Patient is has a nonfocal motor and sensory exam HEENT: NC/AT. Pupils equal round and reactive to light and accommodation extraocular muscles are intact there is no scleral icterus mucous membranes are moist and pink without lesions or exudates. Neck is supple no JVD carotid bruits or lymphadenopathy Lymph: No cervical or supra clavicular or inguinal lymphadenopathy is palpable Chest: Rises symmetrically with inspiration Heart: Occasional periods of regularity. But otherwise irregularly irregular rate is now in the normal range of 80-100. Distant heart sounds no loud murmur Lungs: Significantly diminished breath sounds heard throughout there are some crackles in the bilateral lower bases Abdomen: Soft mild suprapubic tenderness because the patient has to use the restroom otherwise nontender nondistended normal active bowel sounds Extremities: There is some mild pitting edema left greater than right Back: Mild to moderate thoracic kyphosis noted. No CVA tenderness Psych: Normal affect and mood given illness. Skin: Multiple seborrheic keratosis on back and around face otherwise bruising on arms noted Data 12/26/22 10:30 12/26/22 11:00 EKG 1: My Interpretation: Atrial fibrillation mildly tachycardic at approximately 100. Normal QRS normal QT interval EKG computer-generated impression: ATRIAL FIBRILLATION WITH RAPID VENTRICULAR RESPONSE ANTEROSEPTAL MYOCARDIAL INFARCTION , OF INDETERMINATE AGE [40+ ms Q WAVE IN V1-V4] A&P Assessment and plan (1) Shortness of breath at rest: Well likely multifactorial I suspect the bulky mediastinal lymphadenopathy is at this point causing the most symptoms. She does carry the diagnosis of COPD and diastolic heart failure however those seem to be compensated since her oxygen requirements has not changed and her chest x-ray is stable regarding pleural effusions. (2) COPD (chronic obstructive pulmonary disease): Most likely stable at this point. I on 4 L which is her home dose. (3) Pericardial effusion: This was seen on echo dated 11/09/2022 (4) Mediastinal lymphadenopathy: Discussed with Dr. Rey who planned on performing a bronchoscopy with biopsies of these lymph nodes. He states he has spoken with the patient and daughter and at the time they wanted to proceed. He has somewhat reluctant given her severity of illness with COPD requiring 4 L of oxygen and CHF longstanding type 2 diabetes and her multiple other comorbidities. For now the bronchoscopy is scheduled for Thursday. She is n.p.o. after midnight Thursday and her heparin will be held. Her Eliquis has already been on hold and will continue to be held during this hospitalization. We will plan to talk to patient and family over the next couple of days to determine if a diagnosis is necessary. The patient told me she would not want chemotherapy if she were to have cancer and this is the most likely diagnosis. (5) Goals of care, counseling/discussion: I initiated this conversation again today. Patient is very clear that she is ready to be with her [facility] . . She has already expressed DO NOT RESUSCITATE orders. I suggested hospice services as it is most likely that the mediastinal lymphadenopathy is a form of cancer. And she would qualify for services. She has been on [facility] home health care and could switch to hospice easily. She was interested in that suggestion and said she would talk to her family. She is aware that she would not get 24-hour care from hospice and would need assistance. She feels that her family should not do that because they have lives of their own. (6) Atrial fibrillation with rapid ventricular response: She is currently on Cardizem drip at 10 cc an hour. Her carvedilol dose will be doubled for tonight and tomorrow morning suspect we will be able to discontinue the drip shortly thereafter. A consult was placed to Dr. Marie since patient sees Dr. Garcia. Also when I talked to Dr. Rey anesthesiologist wanted a cardiology clearance for the bronchoscopy. (7) Congestive heart failure (CHF): Although the imaging on 11/09/2022 was poor quality a few conclusions can be drawn. While the ventricle was only seen in the apical view it appeared of normal size and function there was mild left ventricular hypertrophy. Unable to determine diastolic dysfunction. EF of 50 to 60% she does have mild pulmonary hypertension RVSP of 37.8. There is also elevated right atrial pressures. The aortic valve appears to be stenotic. And lastly there is a small hemodynamically insignificant pericardial effusion however there is right atrial systolic collapse. No collapse in the right ventricle. At this time I do not appreciate decompensation and will continue her home Lasix dose orally. (8) Type 2 diabetes mellitus, with long-term current use of insulin: Patient will be placed on formulary Lantus with appropriate conversion dosing per pharmacy (9) Diarrhea: Patient will continue Lomotil. I will check if work-up for stool studies has ever been done and if not I will order. (10) Stage 3 chronic kidney disease due to type 2 diabetes mellitus: (11) Long-term insulin use: (12) Hyperlipemia, mixed: Attestations Medical Necessity Statement*: Patient requires hospitalization for acute shortness of breath most likely related to atrial fibrillation with rapid ventricular rate. Patient has multiple comorbidities with 2 recent hospitalizations patient will need further work-up of mediastinal lymphadenopathy if she wishes to proceed versus conversations of end-of-life goals. Coding Level of Care Code Acute Code for Chg Fwd Diagnoses Shortness of breath at rest R06.02 COPD (chronic obstructive pulmonary disease) J44.9 Pericardial effusion I31.39 Mediastinal lymphadenopathy R59.0 Goals of care, counseling/discussion Z71.89 Atrial fibrillation with rapid ventricular response I48.91 Congestive heart failure (CHF) I50.9 Type 2 diabetes mellitus, with long-term current use of insulin E11.9; Z79.4 Diarrhea R19.7 Stage 3 chronic kidney disease due to type 2 diabetes mellitus E11.22; N18.30 Long-term insulin use Z79.4 Hyperlipemia, mixed E78.2
[2022-12-26] MEDS: heparin 5,000 unit/mL INJ 1 mL 5000 UNIT SUBCUT (15:54)
--- NOTE | 2022-12-26 16:20 | ECG_ITS ---
[facility] Test Date: 2022-12-26 Pat Name: Nimo Kennedy Department: Room: 111 Gender: Female Supervisor Counseling And Guidance: : 1940 Requested By: Jack Perez Order Number: [id number] Celena MD: Michi Sierra M.D. Measurements Intervals [place] Rate: 87 P: 0 MS: 0 QRS: 8 QRSD: 104 T: 51 QT: 378 QTc: 455 Interpretive Statements ATRIAL FIBRILLATION ANTEROSEPTAL MYOCARDIAL INFARCTION , OF INDETERMINATE AGE [40+ ms Q WAVE IN V1-V4] Compared to ECG 12/26/2022 12:23:52 No significant changes Electronically Signed On 12-27-2022 9:42:27 CDT by Michi Sierra M.D. [email or web address] ([id number]
[2022-12-26] MEDS: gabapentin 100 mg Capsule 200 MG PO (17:08)
[2022-12-26] MEDS: carvedilol 25 mg Tablet PO (17:08)
[2022-12-26] MEDS: insulin glargine 100 units/1 mL 51 UNIT SUBCUT (17:09)
[2022-12-26 20:09] LABS: Glucose Point of Care 133 mg/dL (70-110)
[2022-12-26 20:09] LABS: Glucose Point of Care 285 mg/dL (70-110)
[2022-12-26] MEDS: budesonide 0.5 mg/2 mL Neb INHALATION (20:12)
[2022-12-26] MEDS: insulin lispro 100 unit/1 mL SUBCUT (20:33)
[2022-12-27] VITALS (13 sets, daily range): BP systolic 107–139; BP diastolic 48–62; PULSE 81–88; RESP 16–38; TEMP 36.4–36.6; O2SAT 91–96; BMI 27.9
[2022-12-27] MEDS: heparin 5,000 unit/mL INJ 1 mL 5000 UNIT SUBCUT (02:11)
[2022-12-27 04:07] LABS: Anion Gap 11.1 (5-19); Blood Urea Nitrogen 43 mg/dL (8-23); Calcium 8.3 mg/dL (8.5-10.5); Carbon Dioxide 29 mmol/L (22-29); Chloride 106 mmol/L (98-107); Creatinine Clr Calc Pharmacy 30.9746; Glucose 134 mg/dL (65-115); Magnesium 2.4 mg/dL (1.7-2.3); Osmolality Calculated 307 mOsm/kg (285-295); Potassium 4.1 mmol/L (3.5-5.1); Sodium 142 mmol/L (136-145)
[2022-12-27 06:11] LABS: Glucose Point of Care 90 mg/dL (70-110)
[2022-12-27] MEDS: aspirin 81 mg EC Tablet PO (06:15)
[2022-12-27] MEDS: ipratropium-albuterol 3 mL Neb INHALATION ×4 (08:13→19:43)
[2022-12-27] MEDS: budesonide 0.5 mg/2 mL Neb INHALATION ×2 (08:13→19:42)
[2022-12-27] MEDS: lisinopril 2.5 mg Tablet PO (09:04)
[2022-12-27] MEDS: carvedilol 25 mg Tablet PO ×2 (09:04→17:57)
[2022-12-27] MEDS: FUROsemide 40 mg Tablet 60 MG PO (09:04)
[2022-12-27] MEDS: amiodarone 200 mg Tablet PO (09:04)
[2022-12-27] MEDS: insulin glargine 100 units/1 mL 25 UNIT SUBCUT ×2 (09:08→19:39)
--- NOTE | 2022-12-27 09:35 | PM.CONSULT ---
Providers/Reason For Consult Consulting Physician/Specialty*: Michi Sierra MD/ Cardiology Reason for Consult*: Dr Condon Requesting Physician: Dr Condon Attending Physician: Alber Condon DO Primary Care Provider: Kalyan Mejia MD History of Present Illness History of Present Illness Nimo Kennedy is a 82 year old female who has mediastinal lymphadenopathy has been admitted with shortness of breath. Cardiology was consulted for afib and chf. She is currently in normal sinus rhythm. She feels breathing is worse since last night. Review of Systems Const: Denies: fever(s) or chills Eyes: Denies: change in vision ENMT: Denies: throat pain or nasal congestion Card: Denies: chest pain or palpitations Resp: Reports: dyspnea; Denies: productive cough GI: Reports: diarrhea (profuse watery diarrhea); Denies: abdominal pain, nausea or vomiting : Denies: dysuria Musc: Denies: back pain or extremity pain Skin/Breast: Denies: rash or lesions Neuro: Denies: headache(s) or dizziness Psych: Denies: anxiety or depression Sai/Lymph: Denies: easy bruising or easy bleeding Medications/Allergies Home Medications Medication Instructions Recorded Confirmed Last Taken Type blood-glucose meter (Accu-Chek #1 ea 11/18/19 12/26/22 Unknown Rx Daphne Plus Meter) lancets (Accu-Chek Fastclix Lancet #200 ea 11/18/19 12/26/22 Unknown Rx Drum) calcium carbonate 500 mg calcium 500 mg PO DAILY 02/27/20 12/26/22 12/26/22 History (1,250 mg) capsule (Calci-Mix) blood-glucose meter,continuous #1 ea 05/16/21 12/26/22 Unknown Rx (Dexcom G6 Dry Cans Operator) blood-glucose transmitter (Dexcom #1 ea 05/16/21 12/26/22 Unknown Rx G6 Transmitter device) insulin degludec 200 unit/mL (3 See Rx Instructions .Route 09/23/21 12/26/22 12/25/22 Rx mL) subcutaneous pen (Tresiba .COMPLEX #101 mL FlexTouch U-200 insulin) blood-glucose sensor (Dexcom G6 #3 ea 10/01/21 12/26/22 Unknown Rx Sensor device) blood sugar diagnostic (Accu-Chek #200 ea 10/23/21 12/26/22 Unknown Rx Daphne Plus test strips) pen needle, diabetic 31 gauge x #200 ea 10/23/21 12/26/22 Unknown Rx 3/16 (BD Ultra-Fine Mini Pen Needle) carvedilol 12.5 mg tablet 12.5 mg PO BID #180 tabs 04/15/22 12/26/22 12/26/22 Rx cilostazol 100 mg tablet 100 mg PO BID #60 tabs 10/29/22 12/26/22 12/16/22 Rx gabapentin 100 mg capsule 200 mg PO QPM 10/29/22 12/26/22 12/25/22 History mirabegron 25 mg tablet,extended 25 mg PO DAILY 11/09/22 12/26/22 12/26/22 History release 24 hr (Myrbetriq) cfuyg-5n-fjk-epa-fish oil 120 1 cap PO DAILY 11/09/22 12/26/22 12/26/22 History mg-180 mg-60 mg-1,200 mg capsule, DR (Fish Oil) rosuvastatin 20 mg tablet 20 mg PO DAILY@13 11/09/22 12/26/22 12/25/22 History insulin lispro 100 unit/mL See Rx Instructions .Route 11/12/22 12/26/22 12/26/22 Rx subcutaneous pen (Humalog KwikPen .COMPLEX #27 mL (U-100) Insulin) aspirin 81 mg tablet,delayed 81 mg PO QAM 11/19/22 12/26/22 12/26/22 History release cholecalciferol (vitamin D3) 25 25 mcg PO DAILY 11/19/22 12/26/22 12/26/22 History mcg (1,000 unit) capsule (Vitamin D3) amiodarone 200 mg tablet (Pacerone) 200 mg PO DAILY #90 tabs 12/05/22 12/26/22 12/26/22 Rx apixaban 5 mg tablet (Eliquis) 5 mg PO Q12H 12/16/22 12/26/22 12/16/22 History diphenoxylate-atropine 2.5 1 - 2 tab PO QID PRN Diarrhea 12/16/22 12/26/22 Unknown History mg-0.025 mg tablet fluticasone fur. 200 mcg-umeclid 1 inh inhalation DAILY #60 ea 12/19/22 12/26/22 12/26/22 Rx 62.5 mcg-vilant 25 mcg inhalat.powder (Trelegy Ellipta) furosemide 40 mg tablet (Lasix) 60 mg PO DAILY #45 tabs 12/19/22 12/26/22 12/26/22 Rx lisinopril 10 mg tablet 10 mg PO DAILY #30 tabs 12/19/22 12/26/22 12/26/22 Rx potassium chloride 20 mEq 20 meq PO BID #60 tabs 12/19/22 12/26/22 12/26/22 Rx tablet,extended release(part/cryst) amoxicillin 875 mg-potassium 1 tab PO BID #28 tabs 12/22/22 12/26/22 12/26/22 Rx clavulanate 125 mg tablet jmgxykhd-hju-nelso ac 400 1 tab PO DAILY 12/26/22 12/26/22 12/26/22 History mcg-calcium carb 500 mg-vit K1 20 mcg tablet (Women's 50 Plus Multivitamin) Allergies Allergy/AdvReac Type Severity Reaction Status Date / Time codeine Allergy Unknown Verified 12/26/22 11:58 erythromycin base Allergy Unknown Verified 12/26/22 11:58 Current Medications Generic Name Dose Route Start Last Admin Trade Name Freq PRN Reason Stop Dose Admin Albuterol/Ipratropium 3 ml 12/26/22 16:00 12/27/22 08:13 Ipratropium-Albuterol 3 Ml Neb INHALATION 3 ml QID.RESPIRATORY ROBIN Administration Amiodarone HCl 200 mg 12/27/22 09:00 12/27/22 09:04 Amiodarone 200 Mg Tablet PO 200 mg DAILY ROBIN Administration Aspirin 81 mg 12/27/22 06:00 12/27/22 06:15 Aspirin 81 Mg Ec Tablet PO 81 mg QAM ROBIN Administration Budesonide 0.5 mg 12/26/22 20:00 12/27/22 08:13 Budesonide 0.5 Mg/2 Ml Neb INHALATION 0.5 mg BID.RESPIRATORY ROBIN Administration Carvedilol 25 mg 12/26/22 18:00 12/27/22 09:04 Carvedilol 25 Mg Tablet PO 25 mg BID ROBIN Administration Furosemide 60 mg 12/27/22 09:00 12/27/22 09:04 Furosemide 40 Mg Tablet PO 60 mg DAILY ROBIN Administration Gabapentin 200 mg 12/26/22 18:00 12/26/22 17:08 Gabapentin 100 Mg Capsule PO 200 mg QPM ROBIN Administration Diltiazem HCl 100 mg/ Sodium 100 mls @ 0 mls/hr 12/26/22 10:45 12/26/22 20:45 Chloride IV 0 mg/hr .Q0M ROBIN 0 mls/hr Titration Protocol Per Protocol Insulin Glargine 58 unit 12/27/22 06:00 12/27/22 08:50 Insulin Glargine 100 Units/1 Ml SUBCUT Not Given QAM ROBIN Insulin Glargine 51 unit 12/26/22 18:00 12/26/22 17:09 Insulin Glargine 100 Units/1 Ml SUBCUT 51 unit QPM ROBIN Administration Insulin Human Lispro 0 unit 12/26/22 18:00 12/27/22 07:58 Insulin Lispro 100 Unit/1 Ml SUBCUT Not Given TIDWM [facility] Protocol Insulin Human Lispro 0 unit 12/26/22 21:00 12/26/22 20:33 Insulin Lispro 100 Unit/1 Ml SUBCUT 4 unit BEDTIME ROBIN Administration Protocol Lisinopril 2.5 mg 12/27/22 09:00 12/27/22 09:04 Lisinopril 2.5 Mg Tablet PO 2.5 mg DAILY ROBIN Administration PFSH Acute PFSH: Medical History Acute bronchitis and bronchiolitis Acute diastolic heart failure Benign mass of parotid gland DJD (degenerative joint disease) Dyslipidemia Essential (primary) hypertension History of malignant melanoma History of nonmelanoma skin cancer Incomplete emptying of bladder Left anterior knee pain Nocturia Proteinuria PVD (peripheral vascular disease) Recurrent UTI Tuberculosis Type 2 diabetes mellitus, with long-term current use of insulin Urgency incontinence Urinary urgency Surgical History H/O breast biopsy H/O section H/O: hysterectomy History of surgery on lower extremity History of tonsillectomy Family History Mother , at age 93 Diabetes CAD (coronary artery disease) Brother Leukemia Cancer Diabetes Family/Other Cancer Diabetes Daughter Chronic kidney disease (CKD) Cancer Father , at age 83 Stroke Grandmother Cancer Denies family history of Clotting disorder Dementia Suicide Anesthesia complication Bleeding disorder Lung disease Social History Smoking and tobacco status: former smoker Alcohol intake: current Alcohol intake frequency: holidays/special occasions only Substance/Drug Use: never Adopted: No Caregiver/support person: No Household members: family Marital status: Current occupational status: retired Vitals/I&O/Wt Last Vital Signs Temp 97.9 F 12/27/22 08:18 Pulse 85 12/27/22 08:18 Resp 32 H 12/27/22 08:18 BP 123/60 12/27/22 08:18 Pulse Ox 93 12/27/22 08:18 O2 Del Method Nasal Cannula 12/27/22 08:18 O2 Flow Rate 4 12/27/22 08:18 12/26/22 12/27/22 12/27/22 22:59 06:59 14:59 Intake Total 308.417 / 319.084 450 / 769.084 118 / 118 Output Total 600 / 600 200 / 800 Balance -291.583 / -280.916 250 / -30.916 118 / 118 Weight last 48 hrs Weight 189 lb 6.4 oz Weight 180 lb Physical Exam Const: COMMON NORMALS: no acute distress and patient oriented x3 Resp: COMMON NORMALS: normal respiratory effort, No retractions and No use of accessory muscles OTHER: Bilateral basal crackles Cardio: COMMON NORMALS: regular rate, regular rhythm, S1 normal heart sound present and S2 normal heart sound present RATE: regular rate RHYTHM: regular rhythm HEART SOUNDS: S1 normal heart sound present and S2 normal heart sound present GI: COMMON NORMALS: Normal to inspection, nondistended, normoactive bowel sounds present and non-tender Extremity: COMMON NORMALS: no pedal edema Neuro: COMMON NORMALS: patient oriented x3 Psych: COMMON NORMALS: mental status grossly normal Urinary Catheter Management: Aquino: Cath Placed During This Visit: yes Reason for Continuing Indwelling Catheter: Accurate Measurement of Urinary Output in Critically Ill Patients Urinary Catheter Date of Insertion: 11/09/22 Urinary Catheter Time of Insertion: 20:11 Data 12/26/22 10:30 12/27/22 03:23 A&P Assessment and plan (1) Shortness of breath at rest: (2) Atrial fibrillation with rapid ventricular response: (3) Mediastinal lymphadenopathy: (4) COPD (chronic obstructive pulmonary disease): (5) Congestive heart failure (CHF): Plan Patient is currently in normal sinus rhythm. She has bilateral basal crackles. Can repeat cxr to rule out pneumonia as she is currently not on antibiotics. With worsening of breathing, mild volume overload noted. Will be appropriate to give small IV lasix dose with close monitoring of renal function. Close I and Os. Depending on goals of care, may need a limited echo to assess pericardial effusion. Continue rate controlling agents Resume anticoagulation. Plan for IV vs oral will depend on whether patient is going for a biopsy or not Thankyou for involving us with care of this patient. She is stable from cardiac standpoint. If you need further assistance, please call with questions.. Consult Attestations Medical Necessity Statement: Care expected to cross 2 midnights. Coding Level of Care Code Acute Code for [facility] Diagnoses Shortness of breath at rest R06.02 Atrial fibrillation with rapid ventricular response I48.91 Mediastinal lymphadenopathy R59.0 COPD (chronic obstructive pulmonary disease) J44.9 Congestive heart failure (CHF) I50.9
[2022-12-27] MEDS: FUROsemide 10 mg/mL SDV 2mL 20 MG IVP (10:58)
[2022-12-27 11:19] LABS: Glucose Point of Care 129 mg/dL (70-110)
--- NOTE | 2022-12-27 13:00 | PM.PN ---
Subjective Subjective: Patient had a rough night last night. States she was interrupted from 2:00 until this morning. Her breathing is worse because she is not rested. Vitals/I&O/Wt Last Vital Signs Temp 97.9 F 12/27/22 08:18 Pulse 81 12/27/22 12:10 Resp 38 H 12/27/22 12:10 BP 107/48 12/27/22 12:10 Pulse Ox 94 12/27/22 12:10 O2 Del Method Nasal Cannula 12/27/22 12:10 O2 Flow Rate 3 12/27/22 12:10 12/26/22 12/27/22 12/27/22 22:59 06:59 14:59 Intake Total 308.417 / 319.084 450 / 769.084 118 / 118 Output Total 600 / 600 200 / 800 Balance -291.583 / -280.916 250 / -30.916 118 / 118 Weight last 48 hrs Weight 85.91 kg Weight 81.647 kg Physical Exam Narrative: Elderly white female in no acute distress. She appears well-nourished and well-hydrated. Heart: Mostly regular with some ectopy heart rate is controlled around 80. Distant heart sounds no loud murmur Lungs: Significantly diminished breath sounds heard throughout there are some crackles in the bilateral lower bases Abdomen: Soft mild suprapubic tenderness because the patient has to use the restroom otherwise nontender nondistended normal active bowel sounds Extremities: There is some mild pitting edema left greater than right Back: Mild to moderate thoracic kyphosis noted. No CVA tenderness Data 12/26/22 10:30 12/27/22 03:23 Micro: Microbiology 12/26/22 12:52 Urine Culture - Preliminary Urine,Clean Catch CT Chest: My impression: Her heart is enlarged and left lung volume is visually 1/2-1/3 of the full capacity due to heart capacity and mild pleural effusion I do see the mediastinal subcarinal etc. lymph nodes. Radiologist's impression: Per report A&P Assessment and plan (1) Shortness of breath at rest: likely multifactorial I suspect the bulky mediastinal lymphadenopathy is at this point causing the most symptoms. She does carry the diagnosis of COPD and diastolic heart failure. My picture of her today is that she is compensated for heart failure but her COPD is probably what is also contributing mostly to her shortness of breath. Her lung capacity is very limited on the last CAT scan due to enlarged heart. She has a significant kyphosis that could also be contributing. Today I will start a steroid trial; providing a dose of 1 mg/kg of Solu-Medrol. Tomorrow I will follow with 40 of prednisone in the morning. I see that Dr. Marie gave her a dose of Lasix today however with her worsening kidney function I will not continue. I am also going to give a trial of Roxanol for the breathlessness feeling she has because her oxygenation is not any worse on 4 L. This could be more anxiety and the feeling of breathlessness. (2) COPD (chronic obstructive pulmonary disease): As above steroids. Roxanol for breathlessness symptoms (3) Pericardial effusion: This was seen on echo dated 11/09/2022 (4) Mediastinal lymphadenopathy: As discussed with Dr. Rey yesterday he feels strongly that the lymph nodes are represent malignancy as they are very large. This was expressed to the patient and her daughter. The patient is very clear that she would not want further treatment and thus is going to forego further testing. (5) Goals of care, counseling/discussion: We again touched on the patient's goals of care. He does not waver from her plans. She would like to live in a [place] such as to relieve her family burden of taking care of her. I explained the Medicare hospice benefit to her and her daughter and the patient wishes to pursue the hospice benefit. Currently they are deciding if they want to go directly to a [place] [facility] [place] with hospice or if they want to attempt hospice at home. We discussed the 3 different hospices locally. (6) Atrial fibrillation with rapid ventricular response: Heart rate is now 80 yet she is still symptomatic with her breathlessness. This is another reason why I am leaning towards COPD and the mediastinal lymphadenopathy as the 2 most likely diagnoses causing her symptoms. Her carvedilol dose has already been doubled. This may need to be increased further or the addition of short acting Cardizem to help us get the right dose. Dr. Jose consulted. Will advise of hospice decision. (7) Congestive heart failure (CHF): At this time I do not appreciate decompensation and will continue her home Lasix dose orally Note cardiology gave a one-time Lasix dose today. (8) Type 2 diabetes mellitus, with long-term current use of insulin: Patient will be placed on formulary Lantus with appropriate conversion dosing per pharmacy. Patient did not eat breakfast and reported a diminished appetite thus her Lantus dose was cut in half this morning will follow expectantly (9) Diarrhea: Patient will continue Lomotil. I will check if work-up for stool studies has ever been done and if not I will order. (10) Stage 3 chronic kidney disease due to type 2 diabetes mellitus: (11) Long-term insulin use: (12) Hyperlipemia, mixed: Attestations Medical Necessity Statement*: Patient stay is going to cross 2 further midnights to adjust medications for heart rate as well as treat patient's symptoms of breathlessness causing her to return to the hospital for the third time in a month Coding Level of Care Code Acute Code for [facility] Diagnoses Shortness of breath at rest R06.02 COPD (chronic obstructive pulmonary disease) J44.9 Pericardial effusion I31.39 Mediastinal lymphadenopathy R59.0 Goals of care, counseling/discussion Z71.89 Atrial fibrillation with rapid ventricular response I48.91 Congestive heart failure (CHF) I50.9 Type 2 diabetes mellitus, with long-term current use of insulin E11.9; Z79.4 Diarrhea R19.7 Stage 3 chronic kidney disease due to type 2 diabetes mellitus E11.22; N18.30 Long-term insulin use Z79.4 Hyperlipemia, mixed E78.2
[2022-12-27] MEDS: morphine 10 mg/0.5 mL oral liq UD 5 MG PO ×2 (14:20→20:48)
[2022-12-27 17:17] LABS: Glucose Point of Care 214 mg/dL (70-110)
[2022-12-27] MEDS: insulin lispro 100 unit/1 mL SUBCUT ×2 (17:56→20:49)
[2022-12-27] MEDS: gabapentin 100 mg Capsule 200 MG PO (17:57)
[2022-12-27 20:13] LABS: Glucose Point of Care 234 mg/dL (70-110)
[2022-12-27] MEDS: apixaban 5 mg Tablet PO (20:49)
[2022-12-27 22:46] LABS: Glucose Point of Care 160 mg/dL (70-110)
[2022-12-28] VITALS (8 sets, daily range): BP systolic 113–144; BP diastolic 53–70; PULSE 86–98; RESP 17–37; TEMP 36.6–37; O2SAT 91–92
[2022-12-28] MEDS: insulin glargine 100 units/1 mL 25 UNIT SUBCUT (05:58)
[2022-12-28] MEDS: aspirin 81 mg EC Tablet PO (05:58)
[2022-12-28 06:05] LABS: Glucose Point of Care 105 mg/dL (70-110)
[2022-12-28] MEDS: budesonide 0.5 mg/2 mL Neb INHALATION (07:22)
[2022-12-28] MEDS: ipratropium-albuterol 3 mL Neb INHALATION ×2 (07:22→11:13)
[2022-12-28] MEDS: FUROsemide 40 mg Tablet 60 MG PO (09:00)
[2022-12-28] MEDS: lisinopril 2.5 mg Tablet PO (09:00)
[2022-12-28] MEDS: apixaban 5 mg Tablet PO (09:01)
[2022-12-28] MEDS: morphine 10 mg/0.5 mL oral liq UD 5 MG PO (09:01)
[2022-12-28] MEDS: amiodarone 200 mg Tablet PO (09:01)
[2022-12-28] MEDS: predniSONE 20 mg Tablet 40 MG PO (09:01)
[2022-12-28] MEDS: carvedilol 25 mg Tablet PO (09:01)
[2022-12-28 12:04] LABS: Glucose Point of Care 206 mg/dL (70-110)
[2022-12-28] MEDS: insulin lispro 100 unit/1 mL SUBCUT (12:29)
--- NOTE | 2022-12-28 15:51 | P.DS_ITS ---
Discharge Providers Date of Admission: 12/26/22 13:01 Date of Discharge: December 28, 2022 Attending Provider at Admission: Alber Condon DO Attending Provider at Discharge: Alber Condon DO Consults: Pulmonary Cardiology Primary Care Provider: Kalyan Mejia MD Diagnoses at Discharge Discharge Diagnosis (1) Shortness of breath at rest: Status: Acute (2) Atrial fibrillation with rapid ventricular response: Status: Acute (3) Mediastinal lymphadenopathy: Status: Chronic (4) COPD (chronic obstructive pulmonary disease): Status: Chronic (5) Congestive heart failure (CHF): Status: Chronic Reason for Visit Reason for Visit: sob, chest tightness Brief History: Nimo Kennedy is a 82 year old female also had significant decline in her health status since November 08, 2022.? She was hospitalized for A-fib with RVR diagnosed with COPD and CHF.? She came back to the ER on 823 with shortness of breath and had run out of oxygen.? She has been receiving home health care services.? However she returned to the hospital 12/16/2022 to 12/19/2022.? During that hospitalization she was found to have a moderate size right pleural effusion and she received a thoracentesis.? Those studies showed that it was a transudate.? No malignant cells were seen.? Negative culture.? During this hospitalization a CT of the chest was done demonstrating bulky lymphadenopathy consistent with malignancy.? The plan was to have a thoracentesis with biopsy on these lymph nodes. However today she again struggled with shortness of breath at rest.? In the emergency room she was mildly tachycardic with A-fib.? Since no other abnormalities were found she was treated with Cardizem.? Bringing her heart rate down to did help alleviate her symptoms. During my visit patient complains of no further shortness of breath, she denies chest pain.? She reports a few months of very watery diarrhea.? She had recently been started on a chemotherapy diarrhea drug which has some effect. Hospital Course Hospital Course Patient remained on 4 L of oxygen. She was placed on a Cardizem drip for the A- fib with RVR. Given her home medications. Consult was placed with Dr. Rey to consider her performing the bronchoscopy while she was inpatient. We made arrangements originally. A consult was placed for Dr. Marie because the patient sees Dr. Garcia. If there was a twofold reasoning for assistance with A-fib with RVR if necessary and for anesthesia cardiac clearance prior to bronchoscopy. Long intensive discussions were had with the patient and daughter and other family members on occasion. Herself was very clear about DO NOT RESUSCITATE orders. She does not want to be a burden to her family. Wants she and her daughter understood that the lymphadenopathy is highly suspicious for malignancy she did not want to proceed. Dr. Rey was agreeable with this decision and felt strongly it was likely to be a malignancy. The patient almost converted to normal sinus rhythm but has a lot of ectopy. Therefore Eliquis will be continued for now. In conclusion, my impression is that the majority of the patient's symptoms is coming from COPD exacerbation and the increased size of mediastinal lymph nodes. We decided to trial liquid morphine to assist with the dyspnea she feels. This does seem to help. She is also responding to a change of nasal cannula to oxy mask. She also believes the steroids are helping her breathing. Clinically she appears compensated with regards to CHF. She was maintained on her oral dose of Lasix. We continued with further discussion of end-of-life decisions. The hospice benefit was introduced. The family and patient were mostly concerned where where hospice would be provided. The final decision was that family would help the patient live at home for now. I gave them the choices of the hospices in [facility] and they chose [facility]. [facility] hospice was notified and they will call patient and family tomorrow for admission. Physical Exam Narrative: Heart: Mostly regular with some ectopy heart rate is controlled around 80. Distant heart sounds no loud murmur Lungs: Significantly diminished breath sounds heard throughout there are some crackles in the bilateral lower bases Abdomen: Soft mild suprapubic tenderness because the patient has to use the restroom otherwise nontender nondistended normal active bowel sounds Extremities: There is some mild pitting edema left greater than right Back: Mild to moderate thoracic kyphosis noted. Urinary Catheter Management: Aquino: Cath Placed During This Visit: yes Reason for Continuing Indwelling Catheter: Accurate Measurement of Urinary Output in Critically Ill Patients Urinary Catheter Date of Insertion: 11/09/22 Urinary Catheter Time of Insertion: 20:11 Discharge Data Studies Completed and Pending Completed Studies During Hospitalization Category Date Time Status XR chest 1V portable [id number] Stat Exams 12/26/22 10:20 Completed Pending at discharge Category Date Time Status CDIFF [Clostridium Diffi Toxin Reflex] Routine Lab 12/27/22 13:11 Received Stool Culture - Enteric [Salmonella / Shigella / Campy] Lab 12/27/22 13:11 Received Routine Laboratory Results WBC 11.30 10^3/uL (3.29-11.43) 12/26/22 10:30 RBC 4.66 10^6/uL (3.85-5.65) 12/26/22 10:30 Hgb 13.90 g/dL (11.27-16.99) 12/26/22 10:30 Hct 42.2 % (36-47) 12/26/22 10:30 MCV 90.6 fl (85-98) 12/26/22 10:30 MCH 29.8 pg (27-33) 12/26/22 10:30 MCHC 32.9 g/dL (30-55) 12/26/22 10:30 RDW 15.2 % (12.1-15.1) H 12/26/22 10:30 Plt Count 135 10^3/cmm (157-399) L 12/26/22 10:30 MPV 12.5 fL (7.4-10.4) H 12/26/22 10:30 Neut % (Auto) 91.3 % 12/26/22 10:30 Lymph % (Auto) 2.1 % 12/26/22 10:30 [place] % (Auto) 5.9 % 12/26/22 10:30 Eos % (Auto) 0.0 % 12/26/22 10:30 Baso % (Auto) 0.1 % 12/26/22 10:30 Neut # (Auto) 10.31 10^3/uL (1.8-7.7) H 12/26/22 10:30 Lymph # (Auto) 0.2 10^3/uL (0.8-4.8) L 12/26/22 10:30 [place] # (Auto) 0.7 10^3/uL (0.2-0.9) 12/26/22 10:30 Eos # (Auto) 0.0 10^3/uL (0.0-0.8) 12/26/22 10:30 Baso # (Auto) 0.0 10^3/uL (0.0-0.1) 12/26/22 10:30 Nucleated RBC % (auto) 0 % 12/26/22 10:30 Nucleated RBCs # 0.0 /100WBC 12/26/22 10:30 Sodium 142 mmol/L (136-145) 12/27/22 03:23 Potassium 4.1 mmol/L (3.5-5.1) 12/27/22 03:23 Chloride 106 mmol/L (98-107) 12/27/22 03:23 Carbon Dioxide 29 mmol/L (22-29) 12/27/22 03:23 Anion Gap 11.1 (5-19) 12/27/22 03:23 BUN 43 mg/dL (8-23) H 12/27/22 03:23 Creatinine 1.6 mg/dL (0.5-0.9) H 12/27/22 03:23 GFR Calculation Not Reportable 12/27/22 03:23 Glucose 134 mg/dL (65-115) H 12/27/22 03:23 POC Glucose 206 mg/dL (70-110) H 12/28/22 11:59 Calculated Osmolality 307 mOsm/kg (285-295) H 12/27/22 03:23 Calcium 8.3 mg/dL (8.5-10.5) L 12/27/22 03:23 Magnesium 2.4 mg/dL (1.7-2.3) H 12/27/22 03:23 Total Bilirubin 0.5 mg/dL (0.15-1.2) 12/26/22 11:00 AST 34 U/L (0-32) H 12/26/22 11:00 ALT 38 U/L (0-33) H 12/26/22 11:00 Alkaline Phosphatase 55 U/L (35-105) 12/26/22 11:00 Troponin T Baseline 41 ng/L (0-10) H 12/26/22 11:00 Troponin T 120 Minute 41.08 ng/L (0-10) H 12/26/22 12:57 Delta Troponin T 0.08 ABS# (0-10) 12/26/22 12:57 Troponin T Hi Sens 6Hr 42.60 ng/L (0-10) H 12/26/22 17:02 Troponin T Hi Sens 6Hr Delta 1.60 ng/L (0-12) 12/26/22 17:02 NT-Pro-B Natriuret Pep 1351 pg/mL (0-450) H 12/26/22 11:00 Total Protein 5.5 g/dL (6.6-8.7) L 12/26/22 11:00 Albumin 2.8 g/dL (3.5-5.2) L 12/26/22 11:00 Globulin 2.7 g/dL (1.3-4.6) 12/26/22 11:00 Urine Color Yellow (Yellow) 12/26/22 12:52 Urine Appearance Sl hazy (CLEAR) A 12/26/22 12:52 Urine pH 5 (5-7) 12/26/22 12:52 Ur Specific [place] 1.015 (1.005-1.030) 12/26/22 12:52 Urine Protein 1+ (Negative) H 12/26/22 12:52 Urine Glucose (UA) Norm (Normal) 12/26/22 12:52 Urine Ketones Negative (Negative) 12/26/22 12:52 Urine Blood 2+ (Negative) H 12/26/22 12:52 Urine Nitrate Negative (Negative) 12/26/22 12:52 Urine Bilirubin Neg (Negative) 12/26/22 12:52 Urine Urobilinogen Norm mg/dL (Negative) 12/26/22 12:52 Ur Leukocyte Esterase Negative (Negative) 12/26/22 12:52 Urine RBC 0-4 /hpf (0-2) H 12/26/22 12:52 Urine WBC 0-4 /hpf (0-5) H 12/26/22 12:52 Ur Squamous Epith Cells 5-10 /hpf (0-5) H 12/26/22 12:52 Amorphous Sediment Not Reportable 12/26/22 12:52 Urine Bacteria Trace /hpf (NONE) 12/26/22 12:52 Urine Yeast 1+ /hpf H 12/26/22 12:52 Vitals Last Vital Signs Temp 98.6 F 12/28/22 12:24 Pulse 86 12/28/22 13:50 Resp 33 H 12/28/22 13:50 BP 113/62 12/28/22 13:50 Pulse Ox 91 12/28/22 12:24 O2 Del Method Nasal Cannula 12/28/22 12:24 O2 Flow Rate 4 12/28/22 12:24 Discharge Plan Discharge Patient Disposition: Home Condition: Fair Prescriptions: New prednisone 20 mg Tablet See Rx Instructions .ROUTE .COMPLEX Qty: 60 0RF Rx Instructions: 2 tabs (40 mg) orally for 3 more days then 1 tab (20 mg daily morphine concentrate 100 mg/5 mL (20 mg/mL) solution 10 mg PO Q3H PRN (Reason: dyspnea) Qty: 30 0RF Ativan 0.5 mg tablet 0.5 mg PO TID PRN (Reason: anxiety) Qty: 30 0RF carvedilol 25 mg tablet 25 mg PO BID Qty: 60 0RF Rx Instructions: must administer with a meal/food Continued (DME) Dexcom G6 Ui Software Engineer Misc See Rx Instructions .Route Qty: 1 0RF Rx Instructions: Check BS 4 times a day. (DME) Dexcom G6 Transmitter Device See Rx Instructions .Route Qty: 1 3RF Rx Instructions: Change every 90 days. gabapentin 100 mg capsule 200 mg PO QPM cilostazol 100 mg tablet 100 mg PO BID Qty: 60 5RF Rx Instructions: ON HOLD (DME) blood-glucose meter [Accu-Chek Daphne Plus Meter] Misc See Rx Instructions .ROUTE .MEDSUPPLY Qty: 1 0RF Rx Instructions: four times daily (DME) lancets [Accu-Chek Fastclix Lancet Drum] Misc See Rx Instructions .ROUTE .MEDSUPPLY Qty: 200 2RF Rx Instructions: four times daily (DME) Dexcom G6 Sensor Device See Rx Instructions .Route Qty: 3 3RF Rx Instructions: Change every 10 days. (DME) Accu-Chek Daphne Plus test strp Strip See Rx Instructions .ROUTE .MEDSUPPLY Qty: 200 11RF Rx Instructions: four times daily (DME) pen needle, diabetic [BD Ultra-Fine Mini Pen Needle] 31 gauge x 3/16 needle See Rx Instructions .ROUTE .MEDSUPPLY Qty: 200 2RF Rx Instructions: 4 NEEDLES DAILY Pacerone 200 mg tablet 200 mg PO DAILY Qty: 90 0RF Myrbetriq 25 mg tablet extended release 24 hr 25 mg PO DAILY insulin lispro [Humalog KwikPen Insulin] 100 unit/mL insulin pen See Rx Instructions .ROUTE .COMPLEX Qty: 27 3RF Dose Instruction: INJECT 30 UNITS SUBCUTANEOUSLY THREE TIMES DAILY Rx Instructions: INJECT, subcut, three times daily, after meals, based on sliding scale as needed diphenoxylate-atropine 2.5-0.025 mg tablet 1 - 2 tab PO QID PRN (Reason: Diarrhea) Eliquis 5 mg tablet 5 mg PO Q12H Rx Instructions: ON HOLD furosemide [Lasix] 40 mg tablet 60 mg PO DAILY Qty: 45 0RF potassium chloride 20 mEq tablet,ER particles/crystals 20 meq PO BID Qty: 60 0RF Trelegy Ellipta 200-62.5-25 mcg blister with device 1 inh inhalation DAILY Qty: 60 0RF cholecalciferol (vitamin D3) [Vitamin D3] 25 mcg (1,000 unit) Capsule 25 mcg PO DAILY aspirin 81 mg tablet,delayed release (DR/EC) 81 mg PO QAM Changed Tresiba FlexTouch U-200 200 unit/mL (3 mL) insulin pen See Rx Instructions .ROUTE .COMPLEX Qty: 101 1RF Dose Instruction: INJECT 72 UNITS EVERY MORNING AND 64 UNITS EVERY EVENING Rx Instructions: 25 units q am and pm Discontinued Calci-Mix 500 mg calcium (1,250 mg) capsule 500 mg PO DAILY carvedilol 12.5 mg tablet 12.5 mg PO BID Qty: 180 3RF Rx Instructions: must administer with a meal/food rosuvastatin 20 mg tablet 20 mg PO DAILY@13 Fish Oil 120 mg-180 mg- 60 mg-1,200 mg Capsule,Delayed Release(Dr/Ec) 1 cap PO DAILY lisinopril 10 mg Tablet 10 mg PO DAILY Qty: 30 0RF amoxicillin-pot clavulanate 875-125 mg tablet 1 tab PO BID Qty: 28 0RF Women's 50 Plus Multivitamin 400 mcg-500 mg calcium-20 mcg Tablet 1 tab PO DAILY Discharge Orders: Discharge Order (Routine); Ordered 12/28/22 Ordered By: Alber Condon Referrals: Kalyan Mejia MD [Primary Care Provider] - Discharge Diet: Regular Discharge Activity: Increase activity as tolerated Patient Instructions: Lorazepam (By mouth), Prednisone (By mouth), Morphine, Rapid Release (By mouth) (Roxanol), Hospice Care, Lymphadenopathy, Hospice Care (GEN), Shortness of Breath (DC), Opioid Safety Plan of Treatment: [facility] will contact you tomorrow for admission. Their number is [phone]. You will likely be hearing from a person named Karl Mejia RN. I spoke with Madeleine Nguyen who is the hospice home care coordinator. Your new prescriptions have been called into the [facility]. The liquid morphine as prescribed at 10 mg or 0.5 mL every 3 hours as needed. I would like you to take that every 6 hours scheduled and you may use a dose in between if needed. Please record how much you are taking for the hospice nurse tomorrow. I have discontinued some medications that are not of benefit or may cause harm at this point. I prescribed an anxiety pill. You may take this 3 times a day. This may be very helpful to take at night regularly. Your carvedilol doses has been doubled which will help the heart rate. Gurmeet I prescribed prednisone to help your breathing and your wheezing. Follow the instructions for 3 more days at 40 mg tablet which is 2 tablets a day. Then decrease to just 1 tablet until further instructed. Discharge Attestations Time Spent in Discharge Care*: greater than 30 min Quality Metrics Clinical Quality Measures [ No reported AMI, CVA or VTE this stay] Coding Level of Care Code Acute Code for Chg Fwd Diagnoses Shortness of breath at rest R06.02 Atrial fibrillation with rapid ventricular response I48.91 Mediastinal lymphadenopathy R59.0 COPD (chronic obstructive pulmonary disease) J44.9 Congestive heart failure (CHF) I50.9
--- NOTE | 2022-12-29 08:37 | P.EN_ITS ---
Event Note Event Note: A consult was entered for Dr. Rey during this patient's hospital stay on Tuesday 12/26. Dr. Rey was not communications equipment operator and not available at this time. It was agreed by the recruiting operations consultant and attending that the consult would be provided on Thursday when he was available. In the interim the attending discharged the patient from the hospital 12/28 prior the consult being provided, and referred the patient to hospice. Therefore, no consult was provided.
== END 2022-12-28 13:51 | disposition hospice, home (50) | DRG 191 ==
LOC: ER 11:43 → CSU 13:10
PROVIDERS: Admitting Provider Internal Medicine; Emergency Provider Family Medicine; PCP Family Medicine; Visit Provider Internal Medicine
DX: J44.1 Chronic obstructive pulmonary disease with (acute) exacerbation (principal); I13.0 Hypertensive heart and chronic kidney disease with heart failure and stage 1 through stage 4 chronic kidney disease, or unspecified chronic kidney disease; I50.32 Chronic diastolic (congestive) heart failure; I48.91 Unspecified atrial fibrillation; Z51.5 Encounter for palliative care; N18.30 Chronic kidney disease, stage 3 unspecified; E11.22 Type 2 diabetes mellitus with diabetic chronic kidney disease; R19.7 Diarrhea, unspecified; Z66 Do not resuscitate; R59.0 Localized enlarged lymph nodes; Z79.4 Long term (current) use of insulin; Z79.01 Long term (current) use of anticoagulants; Z79.82 Long term (current) use of aspirin; E78.2 Mixed hyperlipidemia; Z85.820 Personal history of malignant melanoma of skin; E11.51 Type 2 diabetes mellitus with diabetic peripheral angiopathy without gangrene; Z87.891 Personal history of nicotine dependence; I27.20 Pulmonary hypertension, unspecified; I35.0 Nonrheumatic aortic (valve) stenosis
CPT/HCPCS: 36415; 36416; 71045; 80048; 80053; 81001; 82962; 83735; 83880; 84484; 85025; 87045; 87086; 87324; 87427; 87449; 93005; 94640; 94664; 96372; 96374; 96375; 96376; 97110; 97162; 97165; 99285; J1644; J1815; J1940; J2930; J3490; J7512; J7626